=== PATIENT | female | born 1965 | race Caucasian/White ===

== ENCOUNTER 2018-10-31 05:41 | Emergency (ER) | payer SELFPAY ==
--- NOTE | 2018-10-31 06:18 | EDPHYS ---
Physician Documentation [facility] Name: Mary Fischer Age: 53 yrs Sex: Female : 1965 Arrival Date: 10/31/2018 Time: 05:42 Bed 19 Private MD: ED Physician Gómez Zaragoza HPI: 10/31 06:13 This 53 yrs old Female presents to ER via Ambulatory with complaints of Ear kb Pain. 06:13 The patient presents with itching and crusting. The complaints affect the right ear and kb left ear. Onset: The symptoms/episode began/occurred 11 month(s) ago. Modifying factors: The symptoms are alleviated by nothing, the symptoms are aggravated by nothing. Associated signs and symptoms: The patient has no apparent associated signs or symptoms. Severity of symptoms: At their worst the symptoms were mild in the emergency department the symptoms are unchanged. The patient has not experienced similar symptoms in the past. The patient has not recently seen a physician. 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 - Social history:: Smoking status: Patient uses tobacco products, smokes two packs cigarettes per day. - Ebola Screening: : Patient negative for fever greater than or equal to 101.5 degrees Fahrenheit, and additional compatible Ebola Virus Disease symptoms Patient denies exposure to infectious person Patient denies travel to an Ebola-affected area in the 21 days before illness onset. ROS: 06:10 Constitutional: Negative for fever, chills, and weight loss, Cardiovascular: Negative kb for chest pain, palpitations, and edema, Respiratory: Negative for shortness of breath, cough, wheezing, and pleuritic chest pain, Abdomen/GI: Negative for abdominal pain, nausea, vomiting, diarrhea, and constipation, Back: Negative for injury and pain, MS/Extremity: Negative for injury and deformity, Skin: Negative for injury, rash, and discoloration, Neuro: Negative for headache, weakness, numbness, tingling, and seizure. 06:10 ENT: Positive for pain and crust to bilateral ear canal. Exam: 06:10 Constitutional: This is a well developed, well nourished patient who is awake, alert, kb and in no acute distress. Head/Face: Normocephalic, atraumatic. Neck: Trachea midline, no thyromegaly or masses palpated, and no cervical lymphadenopathy. Supple, full range of motion without nuchal rigidity, or vertebral point tenderness. No Meningismus. Chest/axilla: Normal chest wall appearance and motion. Nontender with no deformity. No lesions are appreciated. Cardiovascular: Regular rate and rhythm with a normal S1 and S2. No gallops, murmurs, or rubs. Normal PMI, no JVD. No pulse deficits. Respiratory: Lungs have equal breath sounds bilaterally, clear to auscultation and percussion. No rales, rhonchi or wheezes noted. No increased work of breathing, no retractions or nasal flaring. Abdomen/GI: Soft, non-tender, with normal bowel sounds. No distension or tympany. No guarding or rebound. No evidence of tenderness throughout. Skin: Warm, dry with normal turgor. Normal color with no rashes, no lesions, and no evidence of cellulitis. MS/ Extremity: Pulses equal, no cyanosis. Neurovascular intact. Full, normal range of motion. Neuro: Awake and alert, GCS 15, oriented to person, place, time, and situation. Cranial nerves II-XII grossly intact. Motor strength 5/5 in all extremities. Sensory grossly intact. Cerebellar exam normal. Normal gait. 06:10 ENT: External ear(s): are unremarkable, Ear canal(s): skin irritation to ear canals, TM's: are normal, Nose: is normal, Mouth: is normal, Posterior pharynx: is normal. Vital Signs: 05:45 BP 150 / 84; Pulse 89; Resp 18; Temp 97.8(O); Pulse Ox 94% on R/A; Weight 90.72 kg (R); fc Height 5 ft. 0 in. (152.40 cm) (R); Pain 2/10; 05:45 Body Mass Index 39.06 (90.72 kg, 152.40 cm) fc MDM: 05:59 Patient medically screened. kb 06:12 Data reviewed: vital signs, nurses notes. Data interpreted: Pulse oximetry: on room air kb is 94 %. Interpretation: acceptable. Counseling: I had a detailed discussion with the patient and/or guardian regarding: the historical points, exam findings, and any diagnostic results supporting the discharge/admit diagnosis, the need for outpatient follow up, an ENT specialist, to return to the emergency department if symptoms worsen or persist or if there are any questions or concerns that arise at home. Administered Medications: No medications were administered Disposition: 06:41 Co-signature as Attending Physician, Gómez Zaragoza MD. rn Disposition: 10/31/18 06:18 Discharged to Home. Impression: Otalgia - itching. - Condition is Stable. - Discharge Instructions: Earwax Buildup, Adult, Ear Drainage, [id number]. - Medication Reconciliation Form, Thank You Letter, Antibiotic Education, Prescription Opioid Use form. - Follow up: Emergency Department; When: As needed; Reason: Worsening of condition. Follow up: Private Physician; When: 2 - 3 days; Reason: Recheck today's complaints, Continuance of care, Re-evaluation by your physician. Signatures: Loreta Santiago, LORI MADRIGAL-Edie Salas RN Gómez Helm MD MD rn Cordel, Charlene cc3 Corrections: (The following items were deleted from the chart) 06:29 06:18 10/31/2018 06:18 Discharged to Home. Impression: Otalgia - itching. Condition is cc3 Stable. Forms are Medication Reconciliation Form, Thank You Letter, Antibiotic Education, Prescription Opioid Use. Follow up: Emergency Department; When: As needed; Reason: Worsening of condition. Follow up: Private Physician; When: 2 - 3 days; Reason: Recheck today's complaints, Continuance of care, Re-evaluation by your physician. kb
--- NOTE | 2018-10-31 06:18 | ER ---
Nurse's Notes [facility] Name: Mary Fischer Age: 53 yrs Sex: Female : 1965 Arrival Date: 10/31/2018 Time: 05:42 Bed 19 Private MD: Diagnosis: Otalgia-itching Presentation: 10/31 05:45 Presenting complaint: Patient states: that since last Apr she has been having bilateral fc ear pain and irritation. States that she is having tinoco drainage. Transition of care: patient was not received from another setting of care. Onset of symptoms was April 2018. Risk Assessment: Do you want to hurt yourself or someone else? Patient reports no desire to harm self or others. Initial Sepsis Screen: Does the patient meet any 2 criteria? No. Patient's initial sepsis screen is negative. Does the patient have a suspected source of infection? No. Patient's initial sepsis screen is negative. Care prior to arrival: None. 05:45 Method Of Arrival: Ambulatory 05:45 Acuity: MAMADOU 5 Triage Assessment: 05:30 General: Appears in no apparent distress. comfortable, Behavior is calm, cooperative, cc3 appropriate for age. Pain: Complains of pain in left ear and right ear. EENT: Reports pain in right ear and left ear. 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 - Social history:: Smoking status: Patient uses tobacco products, smokes two packs cigarettes per day. - Ebola Screening: : Patient negative for fever greater than or equal to 101.5 degrees Fahrenheit, and additional compatible Ebola Virus Disease symptoms Patient denies exposure to infectious person Patient denies travel to an Ebola-affected area in the 21 days before illness onset. Screenin:55 Abuse screen: Denies threats or abuse. Nutritional screening: No deficits noted. fc Tuberculosis screening: No symptoms or risk factors identified. Fall Risk None identified. Assessment: 06:27 Reassessment: Patient appears in no apparent distress at this time. Patient and/or cc3 family updated on plan of care and expected duration. Pain level reassessed. Patient is alert, oriented x 3, equal unlabored respirations, skin warm/dry/pink. 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 No IV cannula in situ. Patient left ER vitally stable and ambulatory. Vital Signs: 05:45 BP 150 / 84; Pulse 89; Resp 18; Temp 97.8(O); Pulse Ox 94% on R/A; Weight 90.72 kg (R); fc Height 5 ft. 0 in. (152.40 cm) (R); Pain 2/10; 05:45 Body Mass Index 39.06 (90.72 kg, 152.40 cm) ED Course: 05:42 Patient arrived in ED. ds1 05:45 Arm band placed on Patient placed in an exam room, on a stretcher. fc 05:54 Elena Treadwell is Primary Nurse. cc3 05:54 Triage completed. fc 05:55 Patient has correct armband on for positive identification. Bed in low position. Call fc light in reach. 05:55 No provider procedures requiring assistance completed. fc 05:58 [facility] kb 05:58 Gómez Zaragoza MD is Attending Physician. kb 06:27 Patient did not have IV access during this emergency room visit. cc3 Administered Medications: No medications were administered Outcome: 06:18 Discharge ordered by . kb 06:27 Discharged to home ambulatory. cc3 06:27 Condition: stable 06:27 Discharge instructions given to patient, Instructed on discharge instructions, follow up and referral plans. Demonstrated understanding of instructions, follow-up care. 06:29 Patient left the ED. cc3 Signatures: Loreta Santiago FNP-C FNP-Ckb Chretien, Felicia RN RN Mauricio [facility] ds Elena Treadwell cc3
== END 2018-10-31 06:29 | disposition home or self-care (01) ==
LOC: ER 05:41
DX: H92.03 Otalgia, bilateral (principal); L29.9 Pruritus, unspecified; Z88.1 Allergy status to other antibiotic agents; Z88.0 Allergy status to penicillin; F17.210 Nicotine dependence, cigarettes, uncomplicated
CPT/HCPCS: 99281

== ENCOUNTER 2019-09-18 08:55 | Emergency (ER) | payer SELFPAY ==
--- NOTE | 2019-09-18 10:29 | RAD REPORT ---
EXAM DESCRIPTION: RAD - Chest Pa And Lat (2 Views) - 09/18/2019 10:00 am CLINICAL HISTORY: COUGH Chest pain. COMPARISON: Chest Pa And Lat (2 Views) dated 08/11/2017 FINDINGS: The lungs are mildly emphysematous but clear. The heart is mildly enlarged in size. No dis placed fractures. IMPRESSION: Mild COPD.
--- NOTE | 2019-09-18 10:43 | EDPHYS ---
Physician Documentation [facility] Name: Mary Fischer Age: 54 yrs Sex: Female : 1965 Arrival Date: 09/18/2019 Time: 08:56 Bed 13 Private MD: ED Physician Gómez Zaragoza HPI: 09/18 09:41 This 54 yrs old Female presents to ER via Ambulatory with complaints of Flu rn Symptoms. 09:41 The patient or guardian reports cough. Onset: The symptoms/episode began/occurred 1 rn week(s) ago. Severity of symptoms: At their worst the symptoms were mild, in the emergency department the symptoms are unchanged. Modifying factors: The symptoms are alleviated by nothing, the symptoms are aggravated by nothing. The patient has experienced similar episodes in the past. The patient has not recently seen a physician. Reports "all messed up". Has cough for 1 week, non-productive, better now, no hemoptysis, no fever, + smoker. Doesn't take allergy medication. Also having ear itching, congestion, dry flaky skin of feet. The other problems have been going on for "years". . 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 - Social history:: Smoking status: Patient uses tobacco products, smokes one pack cigarettes per day. - Ebola Screening: : Patient denies exposure to infectious person Patient denies travel to an Ebola-affected area in the 21 days before illness onset. - Family history:: not pertinent. - Hospitalizations: : No recent hospitalization is reported. ROS: 09:41 Constitutional: Negative for fever, chills, and weight loss, Eyes: Negative for injury, rn pain, redness, and discharge, ENT: + itchy ears Neck: Negative for injury, pain, and swelling, Cardiovascular: Negative for chest pain, palpitations, and edema, Respiratory: + cough, neg sob Abdomen/GI: Negative for abdominal pain, nausea, vomiting, diarrhea, and constipation, MS/Extremity: Negative for injury and deformity, Neuro: Negative for headache, weakness, numbness, tingling, and seizure. Exam: 09:41 Constitutional: This is a well developed, well nourished patient who is awake, alert, rn and in no acute distress. Ambulatory to room without difficulty or assistance. Head/Face: Normocephalic, atraumatic. Eyes: + conjunctival erythema with clear drainage bilaterally ENT: + was in ears, no fluid or bulging TM, + nasal congestion, MMM, no stridor Neck: Trachea midline, no thyromegaly or masses palpated, and no cervical lymphadenopathy. Supple, full range of motion without nuchal rigidity, or vertebral point tenderness. No Meningismus. Respiratory: Speaking full sentences. No increased work of breathing, no retractions or nasal flaring. MS/ Extremity: Pulses equal, no cyanosis. Neurovascular intact. Full, normal range of motion. Equal circumference. Neuro: Awake and alert, GCS 15, oriented to person, place, time, and situation. Cranial nerves II-XII grossly intact. Motor strength 5/5 in all extremities. Sensory grossly intact. Cerebellar exam normal. Normal gait. Vital Signs: 09:08 BP 128 / 78; Pulse 89; Resp 16; Temp 97.4(TE); Pulse Ox 95% on R/A; ss MDM: 09:09 Patient medically screened. rn 10:40 Differential Diagnosis: Bronchitis Pneumonia Other Allergies. Data reviewed: vital rn signs, nurses notes, radiologic studies, plain films, and as a result, I will discharge patient. Test interpretation: by ED physician or midlevel provider: plain radiologic studies, CXR neg for acute infiltrate. Counseling: I had a detailed discussion with the patient and/or guardian regarding: the historical points, exam findings, and any diagnostic results supporting the discharge/admit diagnosis, radiology results, the need for outpatient follow up, to return to the emergency department if symptoms worsen or persist or if there are any questions or concerns that arise at home. Special discussion: I discussed with the patient/guardian in detail that at this point there is no indication for admission to the hospital. It is understood, however, that if the symptoms persist or worsen the patient needs to return immediately for re-evaluation. 10:40 ED course: Recommend smoking cessation and allergy medication.. rn 09/18 09:23 Order name: XRAY Chest Pa And Lat (2 Views); Complete Time: 10:40 rn Administered Medications: No medications were administered Disposition: 09/18/19 10:42 Discharged to Home. Impression: Allergic rhinitis, unspecified, Chronic obstructive pulmonary disease, unspecified, Conjunctivitis. - Condition is Stable. - Discharge Instructions: Allergies, Adult, Chronic Obstructive Pulmonary Disease. - Prescriptions for polymyxin B sulf- trimethoprim 10,000 unit- 1 mg/mL Ophthalmic drops - instill 1 drop by OPHTHALMIC route every 6 hours for 10 days one drop in each eye as directed; 1 bottle. - Medication Reconciliation Form, Thank You Letter, Antibiotic Education, Prescription Opioid Use, Work release form, Family Work Release form. - Follow up: Private Physician; When: As needed; Reason: Recheck today's complaints, Re-evaluation by your physician. - Problem is an ongoing problem. - Symptoms have improved. Signatures: Dispatcher [employer] EDMS Gómez Zaragoza MD MD rn Smirch, Shelby, RN RN ss Virginia Priest RN RN tw2 Corrections: (The following items were deleted from the chart) 10:50 10:42 09/18/2019 10:42 Discharged to Home. Impression: Allergic rhinitis, unspecified; tw2 Chronic obstructive pulmonary disease, unspecified; Conjunctivitis. Condition is Stable. Forms are Work release form, Family Work Release, Medication Reconciliation Form, Thank You Letter, Antibiotic Education, Prescription Opioid Use. Follow up: Private Physician; When: As needed; Reason: Recheck today's complaints, Re-evaluation by your physician. Problem is an ongoing problem. Symptoms have improved. rn
--- NOTE | 2019-09-18 10:43 | ER ---
Nurse's Notes [facility] Name: Mary Fischer Age: 54 yrs Sex: Female : 1965 Arrival Date: 09/18/2019 Time: 08:56 Bed 13 Private MD: Diagnosis: Allergic rhinitis, unspecified;Chronic obstructive pulmonary disease, unspecified;Conjunctivitis Presentation: 09/18 09:06 Presenting complaint: Patient states: "I've got crusty ears. I've got stuff in my nose ss and I've got crust in my eyes. I've got scales on my feet and I'm congested.". Transition of care: patient was not received from another setting of care. Onset of symptoms was September 11, 2019. Risk Assessment: Do you want to hurt yourself or someone else? Patient reports no desire to harm self or others. Initial Sepsis Screen: Does the patient meet any 2 criteria? No. Patient's initial sepsis screen is negative. Does the patient have a suspected source of infection? No. Patient's initial sepsis screen is negative. Care prior to arrival: None. 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 - Social history:: Smoking status: Patient uses tobacco products, smokes one pack cigarettes per day. - Ebola Screening: : Patient denies exposure to infectious person Patient denies travel to an Ebola-affected area in the 21 days before illness onset. - Family history:: not pertinent. - Hospitalizations: : No recent hospitalization is reported. Screenin:53 Abuse screen: Denies threats or abuse. Nutritional screening: No deficits noted. tw2 Tuberculosis screening: No symptoms or risk factors identified. Fall Risk None identified. Assessment: 09:30 General: Appears in no apparent distress. Behavior is calm, cooperative, appropriate tw2 for age. Pain: Complains of pain in body aches. Neuro: Level of Consciousness is awake, alert, obeys commands, Oriented to person, place, time, situation. Cardiovascular: Patient's skin is warm and dry. Respiratory: Reports cough that is Airway is patent Respiratory effort is even, unlabored, Respiratory pattern is regular, symmetrical. GI: No signs and/or symptoms were reported involving the gastrointestinal system. : No signs and/or symptoms were reported regarding the genitourinary system. EENT: Reports nasal congestion nasal discharge. Musculoskeletal: Range of motion: intact in all extremities. 10:49 Reassessment: Patient appears in no apparent distress at this time. No changes from tw2 previously documented assessment. Patient and/or family updated on plan of care and expected duration. Pain level reassessed. Patient is alert, oriented x 3, equal unlabored respirations, skin warm/dry/pink. Vital Signs: 09:08 BP 128 / 78; Pulse 89; Resp 16; Temp 97.4(TE); Pulse Ox 95% on R/A; ED Course: 08:56 Patient arrived in ED. as 09:07 Triage completed. ss 09:08 Arm band placed on right wrist. ss 09:09 Gómez Zaragoza MD is Attending Physician. rn 09:09 Bed in low position. Call light in reach. Adult w/ patient. tw2 09:52 Virginia Priest, SISSY is Primary Nurse. tw2 09:59 XRAY Chest Pa And Lat (2 Views) In Process Unspecified. EDMS 10:49 No provider procedures requiring assistance completed. Patient did not have IV access tw2 during this emergency room visit. Administered Medications: No medications were administered Outcome: 10:42 Discharge ordered by . rn 10:49 Discharged to home ambulatory, with significant other. tw2 10:49 Condition: stable 10:49 Discharge instructions given to patient, significant other, Instructed on discharge instructions, follow up and referral plans. medication usage, Demonstrated understanding of instructions, follow-up care, medications, Prescriptions given X 1. 10:50 Patient left the ED. tw2 Signatures: Dispatcher [employer] LUISMS Tamiko Edward Roman, MD MD rn Smirch, Shelby, RN RN Virginia Priest RN RN tw2
[2019-09-18 11:03] VITALS: BP 128/78; TEMP 97.4; O2SAT 95
== END 2019-09-18 10:50 | disposition home or self-care (01) ==
LOC: ER 08:55
DX: J44.9 Chronic obstructive pulmonary disease, unspecified (principal); J30.9 Allergic rhinitis, unspecified; F17.210 Nicotine dependence, cigarettes, uncomplicated; Z88.0 Allergy status to penicillin; Z88.3 Allergy status to other anti-infective agents
CPT/HCPCS: 71046; 99283

== ENCOUNTER 2020-07-18 13:52 | Emergency (ER) | payer SELFPAY ==
[2020-07-18] MEDS ORDERED: FLUCONAZOLE 100 MG TAB ONE (20:05)
--- NOTE | 2020-07-18 20:41 | EDPHYS ---
Physician Documentation [facility] Name: Mary Fischer Age: 55 yrs Sex: Female : 1965 Arrival Date: 07/18/2020 Time: 13:55 Bed 17 Private MD: ED Physician Paco Blanca HPI: 07/18 19:29 This 55 yrs old Female presents to ER via Ambulatory with complaints of Women jmm probelms. 19:29 The patient presents with urinary symptoms. Onset: The symptoms/episode began/occurred jmm gradually, 3 week(s) ago. Modifying factors: The symptoms are alleviated by nothing, the symptoms are aggravated by urinating. Associated signs and symptoms: Pertinent negatives: fever. This is a 55 year old female with no chronic medical conditions that presents to the ED with complaints of vaginal irritation beginning approx 3 week ago. Symptoms have been ongoing and unrelieved at home. Denies fever. Denies discharge. Does have painful urination. . Historical: - Allergies: 14:11 Clarithromycin; aa5 14:11 PENICILLINS; aa5 - Home Meds: 14:11 None [Active]; aa5 - PMHx: 14:11 None; aa5 - PSHx: 14:11 Hysterectomy; aa5 - Immunization history:: Adult Immunizations unknown. - Social history:: Smoking status: Patient reports the use of cigarette tobacco products, smokes one pack cigarettes per day. ROS: 19:29 Constitutional: Negative for fever, chills, and weight loss, Eyes: Negative for injury, jmm pain, redness, and discharge, ENT: Negative for injury, pain, and discharge, Neck: Negative for injury, pain, and swelling, Cardiovascular: Negative for chest pain, palpitations, and edema, Respiratory: Negative for shortness of breath, cough, wheezing, and pleuritic chest pain, Abdomen/GI: Negative for abdominal pain, nausea, vomiting, diarrhea, and constipation, Back: Negative for injury and pain, Skin: Negative for injury, rash, and discoloration, Neuro: Negative for headache, weakness, numbness, tingling, and seizure, Psych: Negative for depression, anxiety, suicide ideation, homicidal ideation, and hallucinations. 19:29 : Positive for urinary symptoms, pelvic pain. 19:29 All other systems are negative. Exam: 19:29 Constitutional: This is a well developed, well nourished patient who is awake, alert, jmm and in no acute distress. Head/Face: atraumatic. Eyes: EOMI, no conjunctival erythema appreciated ENT: Moist Mucus Membranes Neck: Trachea midline, Supple Chest/axilla: Normal chest wall appearance and motion. Cardiovascular: Regular rate and rhythm. No edema appreciated Respiratory: Normal respirations, no respiratory distress appreciated Abdomen/GI: Non distended, soft Back: Normal ROM Skin: General appearance color normal MS/ Extremity: Moves all extremities, no obvious deformities appreciated, no edema noted to the lower extremities Neuro: Awake and alert, normal gait Psych: Behavior is normal, Mood is normal, Patient is cooperative and pleasant 19:29 : no abscess or induration appreciated, labia minora erythematous, no discharge appreciated. . 19:29 Skin: Appearance: Color: normal in color. 19:29 Neuro: Orientation: is normal, Mentation: is normal, Memory: is normal. 19:29 Psych: Behavior/mood is pleasant, cooperative. Vital Signs: 14:10 BP 127 / 75; Pulse 94; Resp 20 S; Temp 98.8(O); Pulse Ox 97% on R/A; Weight 90.72 kg aa5 (R); Height 4 ft. 10 in. (147.32 cm) (R); 21:00 BP 116 / 72; Pulse 72; Resp 16 S; Temp 97.6(O); Pulse Ox 96% on R/A; bb 14:10 Body Mass Index 41.80 (90.72 kg, 147.32 cm) aa5 MDM: 19:29 Patient medically screened. sudha 20:38 Data reviewed: vital signs, nurses notes. Counseling: I had a detailed discussion with sudha the patient and/or guardian regarding: the historical points, exam findings, and any diagnostic results supporting the discharge/admit diagnosis, lab results, the need for outpatient follow up, to return to the emergency department if symptoms worsen or persist or if there are any questions or concerns that arise at home. ED course: BGL elevated. I discussed with the patient the need for further evaluation by pcp and given information for follow up. Patient otherwise given strict return precautions. Patient understood and agrees with the plan of care. . 07/18 19:30 Order name: Urine Microscopic Only sudha 07/18 19:30 Order name: Urine Culture [facility] 07/18 19:30 Order name: Urine Dipstick-Ancillary (obtain specimen); Complete Time: 20:08 [facility] 07/18 20:08 Order name: Urine Dipstick--Ancillary (enter results) ca 07/18 20:42 Order name: Glucose, Ancillary Testing [facility] 07/18 20:24 Order name: Fingerstick Glucose; Complete Time: 20:39 [facility] Administered Medications: 20:03 Drug: DiFLUcan 150 mg Route: PO; ll1 20:39 Follow up: Response: No adverse reaction; RASS: Alert and Calm (0) ll1 Disposition: 07/19 05:31 Co-signature as Attending Physician, Paco Blnaca MD I agree with the assessment and [facility] plan of care. Disposition: 07/18/20 20:40 Discharged to Home. Impression: Hyperglycemia, unspecified, Urinary tract infection, site not specified, Dysuria. - Condition is Stable. - Discharge Instructions: Dysuria, Hyperglycemia, Urinary Tract Infection, Adult. - Prescriptions for Bactrim DS 800- 160 mg Oral Tablet - take 1 tablet by ORAL route every 12 hours for 7 days; 14 tablet. - Medication Reconciliation Form, Thank You Letter, Antibiotic Education, Prescription Opioid Use, Work release form form. - Follow up: Private Physician; When: 2 - 3 days; Reason: Recheck today's complaints, Continuance of care, Re-evaluation by your physician. Signatures: Dispatcher [employer] [facility] Paco Blanca MD MD cha Mickail, Joel, PA PA [facility] Kizzy Villa RN RN bb Calderon, Audri RN RN Cornelius Byrd RN RN ll1 Corrections: (The following items were deleted from the chart) 07/18 21:11 20:40 07/18/2020 20:40 Discharged to Home. Impression: Hyperglycemia, unspecified; bb Urinary tract infection, site not specified; Dysuria. Condition is Stable. Forms are Medication Reconciliation Form, Thank You Letter, Antibiotic Education, Prescription Opioid Use. Follow up: Private Physician; When: 2 - 3 days; Reason: Recheck today's complaints, Continuance of care, Re-evaluation by your physician. [facility]
--- NOTE | 2020-07-18 20:41 | ER ---
Nurse's Notes [facility] Name: Mary Fischer Age: 55 yrs Sex: Female : 1965 Arrival Date: 07/18/2020 Time: 13:55 Bed 17 Private MD: Diagnosis: Hyperglycemia, unspecified;Urinary tract infection, site not specified;Dysuria Presentation: 07/18 14:10 Chief complaint: Patient states: "I think I have a yeast infection and it won't go aa5 away". Coronavirus screen: Client denies travel out of the [place] in the last 14 days. At this time, the client does not indicate any symptoms associated with coronavirus-19. Ebola Screen: Patient negative for fever greater than or equal to 101.5 degrees Fahrenheit, and additional compatible Ebola Virus Disease symptoms. Initial Sepsis Screen: Does the patient meet any 2 criteria? No. Patient's initial sepsis screen is negative. Does the patient have a suspected source of infection? No. Patient's initial sepsis screen is negative. Risk Assessment: Do you want to hurt yourself or someone else? Patient reports no desire to harm self or others. Onset of symptoms was July 2020. 14:10 Method Of Arrival: Ambulatory aa5 14:10 Acuity: MAMADOU 4 aa5 Historical: - Allergies: 14:11 Clarithromycin; aa5 14:11 PENICILLINS; aa5 - Home Meds: 14:11 None [Active]; aa5 - PMHx: 14:11 None; aa5 - PSHx: 14:11 Hysterectomy; aa5 - Immunization history:: Adult Immunizations unknown. - Social history:: Smoking status: Patient reports the use of cigarette tobacco products, smokes one pack cigarettes per day. Screenin:42 Abuse screen: Denies threats or abuse. Nutritional screening: No deficits noted. ll1 Tuberculosis screening: No symptoms or risk factors identified. Fall Risk None identified. Total Pena Fall Scale indicates No Risk (0-24 pts). Assessment: 19:20 General: Appears in no apparent distress. Behavior is calm, cooperative, appropriate ll1 for age. Pain: Denies pain. : on labia irritation reported. No redness, drainage noted. Reports vaginal itching, vaginal irritation. Derm: Skin is intact, is healthy with good turgor, Skin is pink, warm \\T\\ dry. Skin temperature is warm Reports itching. 20:20 Reassessment: Patient and/or family updated on plan of care and expected duration. Pain ll1 level reassessed. Patient is alert, oriented x 3, equal unlabored respirations, skin warm/dry/pink. 21:10 Reassessment: Patient is alert, oriented x 3, equal unlabored respirations, skin bb warm/dry/pink. pt verbalized understanding of and agrees to plan of care discharge instructions given pt ambulated with steady gait to exit. Vital Signs: 14:10 BP 127 / 75; Pulse 94; Resp 20 S; Temp 98.8(O); Pulse Ox 97% on R/A; Weight 90.72 kg aa5 (R); Height 4 ft. 10 in. (147.32 cm) (R); 21:00 BP 116 / 72; Pulse 72; Resp 16 S; Temp 97.6(O); Pulse Ox 96% on R/A; bb 14:10 Body Mass Index 41.80 (90.72 kg, 147.32 cm) aa5 ED Course: 13:55 Patient arrived in ED. mr 14:10 Arm band placed on. aa5 14:11 Triage completed. aa5 18:23 Brandon Contreras PA is PHCP. [facility] 18:23 Paco Blanca MD is Attending Physician. sudha 19:19 Cornelius June, RN is Primary Nurse. ll1 20:43 Patient has correct armband on for positive identification. Bed in low position. Call ll1 light in reach. Side rails up X 1. Pulse ox on. NIBP on. 21:11 No provider procedures requiring assistance completed. Patient did not have IV access bb during this emergency room visit. Administered Medications: 20:03 Drug: DiFLUcan 150 mg Route: PO; ll1 20:39 Follow up: Response: No adverse reaction; RASS: Alert and Calm (0) ll1 Outcome: 20:40 Discharge ordered by . sudha 21:11 Discharged to home ambulatory. bb 21:11 Condition: stable 21:11 Discharge instructions given to patient, Instructed on discharge instructions, follow up and referral plans. medication usage, Demonstrated understanding of instructions, follow-up care, medications, Prescriptions given X 1. 21:11 Patient left the ED. bb Addendum: 07/23/2020 09:38 Addendum: Culture Results: Positive urine culture. Bacteria is resistant to, has s s intermediate sensitivity, or is not tested against prescribed antibiotics. Report given to ADELINA for further evaluation and then to epic ambulatory analysts for follow up with patient. Phone call Attempt #1 recommendation by NAS Taylor to prescribe Cipro 500 mg 1 tab PO BID x 7 days if patient has symptoms of UTI. attempted to call patient. "not a working number" Certified letter sent to listed address for patient. Signatures: Brandon Contreras PA PA jmm Rivera, Mary mr VillaKizzy, RN RN bb Cindy Peralta, RN RN aa5 Sandra Mccray RN RN ss Cornelius June RN RN ll1 Corrections: (The following items were deleted from the chart) 09:45 09:38 Addendum: Culture Results: Positive urine culture. Patient was not prescribed ss antibiotics at discharge. Report given to ADELINA for further evaluation and then to epic ambulatory analysts for follow up with patient. Phone call Attempt #1 recommendation by NAS Taylor to prescribe Cipro 500 mg 1 tab PO BID x 7 days if patient has symptoms of UTI. attempted to call patient. "not a working number" Certified letter sent to listed address for patient. ss
[2020-07-18 20:51] LABS: Urine Blood NEGATIVE (NEG); Urine Glucose 2+ (NEG); Urine Protein NEGATIVE (NEG); Urine Specific Gravity >1.030 (1.005-1.030)
[2020-07-18 21:39] VITALS: BP 127/75; TEMP 98.8; O2SAT 97
[2020-07-18 21:39] LABS: Urine Bacteria 20-50 /HPF (<20); Urine Culture Reflex Order NOT NEEDED; Urine RBC <5 /HPF (NONE SEEN)
== END 2020-07-18 21:11 | disposition home or self-care (01) ==
LOC: ER 13:52
DX: N39.0 Urinary tract infection, site not specified (principal); R73.9 Hyperglycemia, unspecified; F17.210 Nicotine dependence, cigarettes, uncomplicated; Z88.0 Allergy status to penicillin; Z88.3 Allergy status to other anti-infective agents
CPT/HCPCS: 81003; 81015; 82947; 87077; 87086; 87088; 87186; 99283

== ENCOUNTER 2020-09-17 11:14 | Emergency (ER) | payer SELFPAY ==
[2020-09-17 12:21] LABS: Urine Blood NEGATIVE (NEG); Urine Glucose 2+ (NEG); Urine Protein 1+ (NEG); Urine Specific Gravity >1.030 (1.005-1.030)
[2020-09-17 12:21] LABS: Urine Bacteria <20 /HPF (<20); Urine Mucus LIGHT /HPF (NONE SEEN); Urine RBC <5 /HPF (NONE SEEN)
--- NOTE | 2020-09-17 12:32 | ER ---
Nurse's Notes [facility] Name: Mary Fischer Age: 55 yrs Sex: Female : 1965 Arrival Date: 09/17/2020 Time: 11:16 Bed Waiting Private MD: Diagnosis: Candidiasis of vulva and vagina Presentation: 09/17 11:37 Chief complaint: Patient states: "I have a yeast infection". Coronavirus screen: Client ss denies travel out of the [place] in the last 14 days. Ebola Screen: Patient denies exposure to infectious person. Patient denies travel to an Ebola-affected area in the 21 days before illness onset. Initial Sepsis Screen: Does the patient meet any 2 criteria? No. Patient's initial sepsis screen is negative. Does the patient have a suspected source of infection? No. Patient's initial sepsis screen is negative. Risk Assessment: Do you want to hurt yourself or someone else? Patient reports no desire to harm self or others. Onset of symptoms was September 11, 2020. 11:37 Method Of Arrival: Ambulatory ss 11:37 Acuity: MAMADOU 4 ss Historical: - Allergies: 11:39 Clarithromycin; ss 11:39 PENICILLINS; ss - PSHx: 11:39 Hysterectomy; ss - Immunization history:: Adult Immunizations up to date. - Social history:: Smoking status: Patient reports the use of cigarette tobacco products, smokes two packs cigarettes per day. Screenin:37 Abuse screen: Denies threats or abuse. Denies injuries from another. Nutritional ss screening: No deficits noted. Tuberculosis screening: Never had TB. Fall Risk None identified. Assessment: 11:37 General: Appears in no apparent distress. comfortable, Behavior is calm, cooperative. ss Pain: Complains of pain in vulva/ vagina Pain currently is 9 out of 10 on a pain scale. Quality of pain is described as itching Is continuous. Neuro: Level of Consciousness is awake, alert, obeys commands, Oriented to person, place, time, situation. Cardiovascular: Capillary refill < 3 seconds is brisk in bilateral. Respiratory: Airway is patent Respiratory effort is even, unlabored, Respiratory pattern is regular, symmetrical. GI: No signs and/or symptoms were reported involving the gastrointestinal system. : Reports vaginal itching. EENT: Nares are clear. Derm: Skin is pink, warm \\T\\ dry. normal. Vital Signs: 11:39 BP 132 / 77; Pulse 92; Resp 17; Temp 98.1(TE); Pulse Ox 98% on R/A; Height 4 ft. 9 in. ss (144.78 cm); Pain 9/10; ED Course: 11:16 Patient arrived in ED. ds1 11:19 Loreta Santiago FNP-C is [facility]. kb 11:19 Andres Clarke MD is Attending Physician. kb 11:37 Patient has correct armband on for positive identification. ss 11:38 Triage completed. ss 11:39 Arm band placed on right wrist. ss 13:20 No provider procedures requiring assistance completed. Patient did not have IV access ss during this emergency room visit. Administered Medications: 13:19 Drug: DiFLUcan 150 mg Route: PO; ss 13:20 Follow up: Response: Medication administered at discharge. ss Outcome: 12:31 Discharge ordered by . kb 13:20 Discharged to home ambulatory. ss 13:20 Condition: good 13:20 Discharge instructions given to patient, Instructed on discharge instructions, follow up and referral plans. Demonstrated understanding of instructions, follow-up care. 13:22 Patient left the ED. ss Signatures: Loreta Santiago FNP-C FNP-Ckb Sanford, Demi ds1 Sandra Mccray RN RN ss
--- NOTE | 2020-09-17 12:32 | EDPHYS ---
Physician Documentation [facility] Name: Mary Fischer Age: 55 yrs Sex: Female : 1965 Arrival Date: 09/17/2020 Time: 11:16 Bed Waiting Private MD: ED Physician Andres Clarke HPI: 09/17 12:25 This 55 yrs old Female presents to ER via Ambulatory with complaints of kb Vaginal Discharge - Irritation. 12:25 The patient presents with perineal itching. Onset: The symptoms/episode began/occurred kb 1 week(s) ago. Modifying factors: The symptoms are alleviated by nothing, the symptoms are aggravated by nothing. Associated signs and symptoms: The patient has no apparent associated signs or symptoms. Severity of symptoms: At their worst the symptoms were moderate, in the emergency department the symptoms are unchanged. The patient has experienced similar episodes in the past. The patient has not recently seen a physician. Historical: - Allergies: 11:39 Clarithromycin; ss 11:39 PENICILLINS; ss - PSHx: 11:39 Hysterectomy; ss - Immunization history:: Adult Immunizations up to date. - Social history:: Smoking status: Patient reports the use of cigarette tobacco products, smokes two packs cigarettes per day. ROS: 12:23 Constitutional: Negative for fever, chills, and weight loss, Cardiovascular: Negative kb for chest pain, palpitations, and edema, Respiratory: Negative for shortness of breath, cough, wheezing, and pleuritic chest pain, Abdomen/GI: Negative for abdominal pain, nausea, vomiting, diarrhea, and constipation, Back: Negative for injury and pain, MS/Extremity: Negative for injury and deformity, Skin: Negative for injury, rash, and discoloration, Neuro: Negative for headache, weakness, numbness, tingling, and seizure. 12:23 : Positive for vaginal itching. Exam: 12:23 Constitutional: This is a well developed, well nourished patient who is awake, alert, kb and in no acute distress. Head/Face: Normocephalic, atraumatic. Chest/axilla: Normal chest wall appearance and motion. Nontender with no deformity. No lesions are appreciated. Cardiovascular: Regular rate and rhythm with a normal S1 and S2. No gallops, murmurs, or rubs. Normal PMI, no JVD. No pulse deficits. Respiratory: Lungs have equal breath sounds bilaterally, clear to auscultation and percussion. No rales, rhonchi or wheezes noted. No increased work of breathing, no retractions or nasal flaring. Abdomen/GI: Soft, non-tender, with normal bowel sounds. No distension or tympany. No guarding or rebound. No evidence of tenderness throughout. Skin: Warm, dry with normal turgor. Normal color with no rashes, no lesions, and no evidence of cellulitis. MS/ Extremity: Pulses equal, no cyanosis. Neurovascular intact. Full, normal range of motion. Neuro: Awake and alert, GCS 15, oriented to person, place, time, and situation. Cranial nerves II-XII grossly intact. Motor strength 5/5 in all extremities. Sensory grossly intact. Cerebellar exam normal. Normal gait. Vital Signs: 11:39 BP 132 / 77; Pulse 92; Resp 17; Temp 98.1(TE); Pulse Ox 98% on R/A; Height 4 ft. 9 in. ss (144.78 cm); Pain 9/10; MDM: 11:41 Patient medically screened. kb 12:22 Data reviewed: vital signs, nurses notes. Data interpreted: Pulse oximetry: on room air kb is 98 %. Interpretation: normal. 12:26 Counseling: I had a detailed discussion with the patient and/or guardian regarding: the kb historical points, exam findings, and any diagnostic results supporting the discharge/admit diagnosis, lab results, the need for outpatient follow up, an OB/Gyne specialist, to return to the emergency department if symptoms worsen or persist or if there are any questions or concerns that arise at home. 09/17 12:01 Order name: Urine Microscopic Only; Complete Time: 12:22 kb 09/17 12:02 Order name: Urine Dipstick--Ancillary (enter results); Complete Time: 12:21 kb 09/17 12:01 Order name: Urine Dipstick-Ancillary (obtain specimen); Complete Time: 13:15 kb Administered Medications: 13:19 Drug: DiFLUcan 150 mg Route: PO; ss 13:20 Follow up: Response: Medication administered at discharge. Disposition: 09/18 07:28 Co-signature as Attending Physician, Andres Clarke MD I agree with the assessment and kdr plan of care. Disposition: 09/17/20 12:31 Discharged to Home. Impression: Candidiasis of vulva and vagina. - Condition is Stable. - Discharge Instructions: Vaginal Yeast Infection, Adult. - Medication Reconciliation Form, Thank You Letter, Antibiotic Education, Prescription Opioid Use form. - Follow up: Emergency Department; When: As needed; Reason: Worsening of condition. Follow up: Private Physician; When: 2 - 3 days; Reason: Recheck today's complaints, Continuance of care, Re-evaluation by your physician. Signatures: Dispatcher [employer] EDMS Loreta Santiago, GEODETIC ENGINEER-C GEODETIC ENGINEER-Ckb Andres Clarke MD MD kdr Sandra Mccray RN RN ss Corrections: (The following items were deleted from the chart) 09/17 13:22 12:31 09/17/2020 12:31 Discharged to Home. Impression: Candidiasis of vulva and vagina. ss Condition is Stable. Forms are Medication Reconciliation Form, Thank You Letter, Antibiotic Education, Prescription Opioid Use. Follow up: Emergency Department; When: As needed; Reason: Worsening of condition. Follow up: Private Physician; When: 2 - 3 days; Reason: Recheck today's complaints, Continuance of care, Re-evaluation by your physician. kb
[2020-09-17 13:26] VITALS: BP 132/77; TEMP 98.1; O2SAT 98
[2020-09-17] MEDS ORDERED: FLUCONAZOLE 100 MG TAB ONE (13:33)
== END 2020-09-17 13:22 | disposition home or self-care (01) ==
LOC: ER 11:14
DX: B37.3 Candidiasis of vulva and vagina (principal); F17.210 Nicotine dependence, cigarettes, uncomplicated
CPT/HCPCS: 81003; 81015; 99283

== ENCOUNTER 2021-01-01 10:37 | Emergency (ER) | payer SELFPAY ==
[2021-01-01 11:41] LABS: Absolute Lymphocytes (CBC) 3.2 K/uL (0.7-4.9); Basophils % 1.2 % (0-1.3); Lymphocytes % 34.8 % (15.3-44.8); MPV 8.8 fL (7.6-11.3); RBC Red Blood Cell Count 5.17 M/uL (3.86-4.86)
[2021-01-01 11:54] LABS: Potassium 4.6 mmol/L (3.5-5.1)
--- NOTE | 2021-01-01 11:55 | RAD REPORT ---
EXAM DESCRIPTION: CT - [id number] - 01/01/2021 11:38 am CLINICAL HISTORY: fallfacial trauma, head and neck injury, headache, neck pain COMPARISON: No comparisons TECHNIQUE: Axial 5 mm thick images of the head were obtained. Axial 2 mm thick images of the cervic al spine were obtained with sagittal and coronal reconstruction images generated and reviewed. All CT scans are performed using dose optimization technique as appropriate and may include automated exposure control or mA/KV adjustment according to patient size. FINDINGS: No intracranial hemorrhage, mass, edema or acute intracranial finding. No suspicion for ac slim infarction. A 15 millimeter rounded low-density area in the superior right cerebellum does not ap pear to be acute. This could be an old ischemic injury or possibly a benign posterior fossa cyst. Thi s is not a felt to be related to the acute presentation. Mastoid air cells are clear. Facial bones, o rbits and sinuses are separately detailed. No skull fracture. Cervical body height and alignment are normal. No disk space narrowing. No fracture or acute bony abn ormality. Central canal detail is inherently limited. No paraspinal mass or hematoma. IMPRESSION: No hemorrhage or other acute intracranial finding identifiable. No fracture or acute cervical spine finding identifiable. Orbits, facial bones and sinuses are separately detailed.
--- NOTE | 2021-01-01 12:00 | RAD REPORT ---
EXAM DESCRIPTION: CT - Facial Bones W/ Mpr - 01/01/2021 11:38 am CLINICAL HISTORY: Fall, facial trauma COMPARISON: None. TECHNIQUE: Axial 2 millimeter thick images of the facial bones were obtained with sagittal and coron al reconstruction imaging. All CT scans are performed using dose optimization technique as appropriate and may include automated exposure control or mA/KV adjustment according to patient size. FINDINGS: No skullbase fracture identified. Mastoid air cells are clear. No fracture of the mandible is identified. Mandible condyle positioning is symmetric and within normal range. Nondisplaced nasal bone fractures are present. There is right deviation of the mid nasal septum and l eft deviation of the posterior nasal septum. A fracture line through the nasal septum is not identifi ed. No sinus wall fracture seen. There is significant mucosal thickening in the maxillary sinuses wit h air-fluid levels. Frontal sinuses are clear. Ethmoid air cell patchy mucosal thickening present. r-fluid levels are present in the maxillary sinuses. Sphenoid sinus is clear. There is nasal passage opacification seen commonly associated with hemorrhagic products. No tonsil or adenoid mass effect se en. No globe or orbital content abnormality. IMPRESSION: Nondisplaced nasal bone fractures are present in the anterior midline. There is nasal se ptum deviation but no definitive nasal septum fracture. Soft tissue opacification throughout the nasal passages extending into the oropharynx typical for hem orrhagic material. Soft tissue mass is unlikely. Air-fluid levels in each maxillary sinus. Mucosal thickening changes are present. Sinus wall fracture is not identified.
--- NOTE | 2021-01-01 13:19 | RAD REPORT ---
EXAM DESCRIPTION: RAD - Hand Right 3 View - 01/01/2021 11:59 am CLINICAL HISTORY: Right hand pain status post injury FINDINGS: No fracture or dislocation is seen.
--- NOTE | 2021-01-01 13:49 | ER ---
Nurse's Notes [facility] Name: Mary Fischer Age: 55 yrs Sex: Female : 1965 Arrival Date: 01/01/2021 Time: 11:12 Bed 16 Private MD: Diagnosis: Fracture of nasal bones Presentation: 01/01 11:12 Chief complaint: EMS states: pt arrived via EMS s/p mechanical fall. pt denies LOC. tr6 laceration noted to pts nose. pt denies med hx or meds at home. Coronavirus screen: Client denies travel out of the [place] in the last 14 days. Ebola Screen: Patient negative for fever greater than or equal to 101.5 degrees Fahrenheit, and additional compatible Ebola Virus Disease symptoms Patient denies exposure to infectious person. Patient denies travel to an Ebola-affected area in the 21 days before illness onset. Initial Sepsis Screen: Does the patient meet any 2 criteria? No. Patient's initial sepsis screen is negative. Does the patient have a suspected source of infection? No. Patient's initial sepsis screen is negative. Risk Assessment: Do you want to hurt yourself or someone else? Patient reports no desire to harm self or others. Onset of symptoms was January 01, 2021. 11:12 Method Of Arrival: EMS: [facility] tr6 11:21 Acuity: MAMADOU 3 tr6 Triage Assessment: 11:21 General: Appears in no apparent distress. Behavior is calm, cooperative, appropriate tr6 for age. Historical: - Allergies: 11:19 Clarithromycin; tr6 11:19 PENICILLINS; tr6 - Home Meds: 11:19 None [Active]; tr6 - PSHx: 11:19 Hysterectomy; tr6 - Immunization history:: Adult Immunizations. - Social history:: Smoking status: . Screenin:20 Abuse screen: Denies threats or abuse. Nutritional screening: No deficits noted. tr6 Tuberculosis screening: No symptoms or risk factors identified. Fall Risk Fall in past 12 months (25 points). Assessment: 11:17 Reassessment: see triage assessment. tr6 11:17 Pain: Complains of pain in pt reports she has pain in right wrist and nose. Neuro: No tr6 deficits noted. Cardiovascular: No deficits noted. Respiratory: No deficits noted. GI: No deficits noted. : No deficits noted. EENT: laceration to nose. s/p mechanical fall. Derm: Wound noted nose. Musculoskeletal: No deficits noted. Injury Description: Abrasion sustained to nose. 11:31 Reassessment: pt transferred to xray via wheelchair. tr6 12:34 Reassessment: Patient appears in no apparent distress at this time. Patient and/or tr6 family updated on plan of care and expected duration. Pain level reassessed. Patient is alert, oriented x 3, equal unlabored respirations, skin warm/dry/pink. 13:51 Reassessment: Brandon at bedside to review results with pt. tr6 14:13 Reassessment: discharge instructions and ED med given by other RN. tr6 Vital Signs: 11:20 BP 175 / 103; Pulse 91; Resp 18; Temp 97.8; Pulse Ox 95% ; tr6 13:08 BP 133 / 95; Pulse 92; Resp 18; Pulse Ox 95% ; tr6 ED Course: 11:12 Patient arrived in ED. tr6 11:13 Brandon Contreras PA is PHCP. jmm 11:13 Silvano Catherine MD is Attending Physician. jmm 11:21 Triage completed. tr6 11:21 Arm band placed on right wrist. Patient placed in an exam room. tr6 11:21 No provider procedures requiring assistance completed. tr6 11:22 Patient has correct armband on for positive identification. Fall risk band placed. Bed tr6 in low position. Call light in reach. Side rails up X 1. 11:25 Inserted saline lock: 20 gauge in right antecubital area, using aseptic technique. tr6 ,using aseptic technique. by Celi SHEEHAN Blood collected. 11:30 BMP Sent. tr6 11:30 CBC with Diff Sent. tr6 11:38 CT Head C Spine In Process Unspecified. EDMS 11:38 CT Facial Bones W/O Con In Process Unspecified. EDMS 11:59 Hand Right 3 View XRAY In Process Unspecified. EDMS 13:48 Heydi Clayton MD is Referral Physician. jmm 13:52 IV discontinued, intact, bleeding controlled, No redness/swelling at site. tr6 Administered Medications: 14:01 Drug: Tetanus-Diphtheria Toxoid Adult 0.5 ml {Pyrotechnician: [employer]. Exp: ld1 12/22/2021. Lot #: [id number]. } Route: IM; Site: right deltoid; 14:13 Follow up: Response: No adverse reaction tr6 Outcome: 13:48 Discharge ordered by . sudha 13:52 Discharged to home ambulatory. tr6 13:52 Condition: good 13:52 Discharge instructions given to patient. 14:14 Patient left the ED. tr6 Signatures: Dispatcher [employer] EDMS Brandon Contreras PA PA jmm Dibbern, Lauren, SISSY RN ld1 Do Downs RN RN tr6
--- NOTE | 2021-01-01 13:49 | EDPHYS ---
Physician Documentation [facility] Name: Mary Fischer Age: 55 yrs Sex: Female : 1965 Arrival Date: 01/01/2021 Time: 11:12 Bed 16 Private MD: ED Physician Silvano Catherine HPI: 01/01 11:06 This 55 yrs old Female presents to ER via EMS with complaints of Fall Injury. jmm 11:06 Details of fall: The patient fell from an upright position, while walking. Onset: The m symptoms/episode began/occurred acutely, just prior to arrival. Associated injuries: The patient sustained injury to the head. The patient has not experienced similar symptoms in the past. Patient states she tripped. Also complains of right hand pain and right knee injury. . Historical: - Allergies: 11:19 Clarithromycin; tr6 11:19 PENICILLINS; tr6 - Home Meds: 11:19 None [Active]; tr6 - PSHx: 11:19 Hysterectomy; tr6 - Immunization history:: Adult Immunizations. - Social history:: Smoking status: . ROS: 11:06 Constitutional: Negative for fever, chills, and weight loss, Cardiovascular: Negative jmm for chest pain, palpitations, and edema, Respiratory: Negative for shortness of breath, cough, wheezing, and pleuritic chest pain. 11:06 ENT: Positive for nose bleed. 11:06 MS/extremity: Positive for injury or acute deformity. 11:06 All other systems are negative. Exam: 11:06 Constitutional: This is a well developed, well nourished patient who is awake, alert, jmm and in no acute distress. Head/Face: atraumatic. Eyes: EOMI, no conjunctival erythema appreciated ENT: Moist Mucus Membranes Neck: Trachea midline, Supple 11:06 Chest/axilla: Normal chest wall appearance and motion. Cardiovascular: Regular rate and rhythm. No edema appreciated Respiratory: Normal respirations, no respiratory distress appreciated Abdomen/GI: Non distended, soft Back: Normal ROM Skin: General appearance color normal 11:06 ENT: abrasions noted to the nose, a nasal septal hematoma is not appreciated. 11:06 Musculoskeletal/extremity: FROM appreciated to the right knee, no bony tenderness, no deformity appreciated. 11:06 Skin: Appearance: Color: normal in color. 11:06 Neuro: Motor: is normal. 11:06 Psych: Behavior/mood is pleasant, cooperative. Vital Signs: 11:20 BP 175 / 103; Pulse 91; Resp 18; Temp 97.8; Pulse Ox 95% ; tr6 13:08 BP 133 / 95; Pulse 92; Resp 18; Pulse Ox 95% ; tr6 MDM: 11:38 Patient medically screened. [facility] 13:42 Data reviewed: vital signs, nurses notes. Counseling: I had a detailed discussion with [facility] the patient and/or guardian regarding: the historical points, exam findings, and any diagnostic results supporting the discharge/admit diagnosis, radiology results, the need for outpatient follow up, to return to the emergency department if symptoms worsen or persist or if there are any questions or concerns that arise at home. ED course: Imaging studies negative. Patient is advised to follow up with ENT for further evaluation. Patient understood and agrees with the plan of care. . 01/01 11:16 Order name: CBC with Diff [facility] 01/01 11:16 Order name: BMP [facility] 01/01 11:16 Order name: Hand Right 3 View XRAY; Complete Time: 13:20 [facility] 01/01 11:16 Order name: CT Head C Spine; Complete Time: 12:20 [facility] 01/01 11:16 Order name: CBC with Automated Diff; Complete Time: 12:20 [facility] 01/01 11:16 Order name: Basic Metabolic Panel; Complete Time: 12:20 [facility] 01/01 11:16 Order name: Saline Lock; Complete Time: 11:29 [facility] 01/01 11:16 Order name: CT Facial Bones W/O Con; Complete Time: 12:20 [facility] Administered Medications: 14:01 Drug: Tetanus-Diphtheria Toxoid Adult 0.5 ml {Dental Specialist: [employer]. Exp: ld1 12/22/2021. Lot #: [id number]. } Route: IM; Site: right deltoid; 14:13 Follow up: Response: No adverse reaction tr6 Disposition: 01/01/21 13:48 Discharged to Home. Impression: Fracture of nasal bones. - Condition is Stable. - Discharge Instructions: Nasal Fracture. - Work release form, Medication Reconciliation Form, Thank You Letter, Antibiotic Education, Prescription Opioid Use form. - Follow up: Heydi Clayton MD; When: 2 - 3 days; Reason: Recheck today's complaints, Continuance of care, Re-evaluation by your physician. Addendum: 01/03/2021 06:32 Co-signature as Attending Physician, Silvano Catherine MD I agree with the assessment and t w4 plan of care. Signatures: Dispatcher [employer] EDMS Brandon Contreras, NAS PA Silvano Dunham MD MD tw4 Allegra Sawyer RN RN ld1 Do Downs RN RN tr6 Corrections: (The following items were deleted from the chart) 01/01 14:14 13:48 01/01/2021 13:48 Discharged to Home. Impression: Fracture of nasal bones. tr6 Condition is Stable. Forms are Medication Reconciliation Form, Thank You Letter, Antibiotic Education, Prescription Opioid Use. Follow up: Heydi Clayton; When: 2 - 3 days; Reason: Recheck today's complaints, Continuance of care, Re-evaluation by your physician. sudha
[2021-01-01] MEDS ORDERED: TETANUS & DIPHTHERIA TOX,ADULT 0.5 ML VIAL ONE (14:15)
[2021-01-01 14:19] VITALS: TEMP 97.8; O2SAT 95
[2021-01-01 14:20] VITALS: BP 133/95
== END 2021-01-01 14:14 | disposition home or self-care (01) ==
LOC: ER 10:37
DX: S02.2XXA Fracture of nasal bones, initial encounter for closed fracture (principal); Z23 Encounter for immunization; M79.641 Pain in right hand; S89.91XA Unspecified injury of right lower leg, initial encounter; W01.0XXA Fall on same level from slipping, tripping and stumbling without subsequent striking against object, initial encounter
CPT/HCPCS: 36415; 70450; 70486; 72125; 76377; 80048; 85025; 90471; 90714; 99284

== ENCOUNTER 2022-03-18 07:40 | Inpatient (IN) | payer OTHER, SELFPAY ==
[2022-03-18] MEDS ORDERED: NA CHLORIDE 0.9% 1,000 ML ONE (09:08)
[2022-03-18 09:21] LABS: Urine Blood Negative (Negative); Urine Glucose 3+ (Negative); Urine Protein Trace (Negative); Urine Specific Gravity 1.025 (1.005-1.030); Urine pH 5.5 (5.0-7.0)
[2022-03-18 09:37] LABS: Hematocrit 46.4 % (36.0-45.0); Lymphocytes % 18.2 % (15.3-44.8); MCV 87.8 fL (80-100); MPV 8.8 fL (7.6-11.3); RBC Red Blood Cell Count 5.29 M/uL (3.86-4.86)
[2022-03-18 09:38] LABS: Urine Bacteria 20-50 /HPF (<20); Urine Mucus MOD /HPF (NONE SEEN)
[2022-03-18 09:52] LABS: Albumin 3.1 g/dL (3.4-5.0); Bilirubin Total 0.9 mg/dL (0.2-1.0); Potassium 3.9 mmol/L (3.5-5.1); Protein, Total 7.4 g/dL (6.4-8.2)
--- NOTE | 2022-03-18 11:06 | RAD REPORT ---
EXAM DESCRIPTION: CT - Abdomen Pelvis W Contrast - 03/18/2022 10:31 am CLINICAL HISTORY: Abdominal pain COMPARISON: none. TECHNIQUE: Computed axial tomography of the abdomen pelvis was obtained. 100 cc Isovue-300 was admin istered intravenously. Oral contrast was not requested which limits evaluation of bowel and appendix All CT scans are performed using dose optimization technique as appropriate and may include automated exposure control or mA/KV adjustment according to patient size. FINDINGS: The liver, spleen, pancreas, adrenal and kidneys appear unremarkable. There is no evidence of diverticulitis. The proximal appendix is borderline enlarged. Mid appendix appears normal caliber. Distal appendix no t well seen. There is moderate stranding within the right upper pelvis near the appendix. No free air . No abscess. Hysterectomy. No adnexal mass IMPRESSION: These findings probably indicate an appendicitis. However this should be correlated clin ically. If the diagnosis remains uncertain then a CT scan with oral contrast and opacification of the terminal ileum/cecum would be recommended.
--- NOTE | 2022-03-18 11:39 | ER ---
Nurse's Notes [facility] Name: Mary Fischer Age: 57 yrs Sex: Female : 1965 Arrival Date: 03/18/2022 Time: 07:44 Bed 2 Private MD: Diagnosis: Unspecified acute appendicitis Presentation: 03/18 07:45 Chief complaint: EMS states: Toned out for abdominal pain x 2 days, denies N/V/D, last jl7 BM yesterday. Coronavirus screen: Vaccine status: Patient reports being unvaccinated. At this time, the client does not indicate any symptoms associated with coronavirus-19. Ebola Screen: No symptoms or risks identified at this time. Initial Sepsis Screen: Does the patient meet any 2 criteria? No. Patient's initial sepsis screen is negative. Does the patient have a suspected source of infection? No. Patient's initial sepsis screen is negative. Risk Assessment: Do you want to hurt yourself or someone else? Patient reports no desire to harm self or others. Onset of symptoms was March 16, 2022. Care prior to arrival: None. 07:45 Method Of Arrival: EMS: [facility] jl7 07:45 Acuity: MAMADOU 3 jl7 Triage Assessment: 07:47 General: Appears in no apparent distress. uncomfortable, Behavior is calm, cooperative, jl7 appropriate for age. Pain: Complains of pain in abdomen diffusely Pain currently is 8 out of 10 on a pain scale. Quality of pain is described as sharp. Neuro: Level of Consciousness is awake, alert, obeys commands, Oriented to person, place, time, situation. Cardiovascular: Patient's skin is warm and dry. Respiratory: Airway is patent Respiratory effort is even, unlabored, Respiratory pattern is regular, symmetrical. GI: Abdomen is round non-distended, Last BM was March 17, 2022. Derm: Skin is pink, warm \T\ dry. Historical: - Allergies: 07:47 Clarithromycin; jl7 07:47 PENICILLINS; jl7 - Home Meds: 07:47 None [Active]; jl7 - PMHx: 07:47 Chronic obstructive lung disease; jl7 - PSHx: 07:47 Total abdominal hysterectomy; jl7 - Immunization history:: Adult Immunizations not up to date. - Social history:: Smoking status: Patient reports the use of cigarette tobacco products, smokes one pack cigarettes per day. Screenin:32 Abuse screen: Denies threats or abuse. Nutritional screening: No deficits noted. tp1 Tuberculosis screening: No symptoms or risk factors identified. Fall Risk IV access (20 points). Ambulatory Aid- None/Bed Rest/Nurse Assist (0 pts). Gait- Normal/Bed Rest/Wheelchair (0 pts) Mental Status- Oriented to own ability (0 pts). Total Pena Fall Scale indicates No Risk (0-24 pts). Assessment: 09:32 General: Appears in no apparent distress. comfortable, Behavior is calm, cooperative. tp1 Pain: Complains of pain in abdomen Pain does not radiate. Pain currently is 8 out of 10 on a pain scale. Quality of pain is described as crampy, Pain began 2-3 days ago. Is continuous. Neuro: Level of Consciousness is awake, alert, obeys commands, Oriented to person, place, time, situation. Cardiovascular: Patient's skin is warm and dry. Respiratory: Airway is patent Respiratory effort is even, unlabored, Respiratory pattern is regular. GI: Abdomen is round Bowel sounds present X 4 quads. Abd is soft and non tender Patient currently denies diarrhea, nausea, vomiting, reported normal BM 03/17. : No signs and/or symptoms were reported regarding the genitourinary system. EENT: No signs and/or symptoms were reported regarding the EENT system. Derm: Skin is intact, Skin is pink, warm \T\ dry. Musculoskeletal: Circulation, motion, and sensation intact. 10:51 Reassessment: Patient appears in no apparent distress at this time. No changes from tp1 previously documented assessment. Patient and/or family updated on plan of care and expected duration. Pain level reassessed. Patient is alert, oriented x 3, equal unlabored respirations, skin warm/dry/pink. Denies need for pain medication. Pain: Complains of pain in abdomen Pain currently is 8 out of 10 on a pain scale. Quality of pain is described as crampy. 11:45 Reassessment: ER provider at bedside. tp1 11:50 Reassessment: Patient appears in no apparent distress at this time. No changes from tp1 previously documented assessment. Patient and/or family updated on plan of care and expected duration. Pain level reassessed. Patient is alert, oriented x 3, equal unlabored respirations, skin warm/dry/pink. Educated on need for NPO status, verbalized understanding. Educated on need for assistance with ambulation due to medication, verbalized understanding for need and how to use call light. Pain: Complains of pain in abdomen Pain does not radiate. Pain currently is 8 out of 10 on a pain scale. Quality of pain is described as crampy, Is continuous. Respiratory: Airway is patent Respiratory effort is even, unlabored, Respiratory pattern is regular. 13:00 Reassessment: Patient appears in no apparent distress at this time. No changes from tp1 previously documented assessment. Patient and/or family updated on plan of care and expected duration. Pain level reassessed. Patient is alert, oriented x 3, equal unlabored respirations, skin warm/dry/pink. 14:08 Reassessment: Patient appears in no apparent distress at this time. No changes from tp1 previously documented assessment. Patient and/or family updated on plan of care and expected duration. Pain level reassessed. Patient is alert, oriented x 3, equal unlabored respirations, skin warm/dry/pink. Pain: Complains of pain in abdomen Pain does not radiate. Pain currently is 2 out of 10 on a pain scale. Quality of pain is described as crampy. Neuro:. Cardiovascular: Patient's skin is warm and dry. Respiratory: Airway is patent Respiratory effort is even, unlabored, Respiratory pattern is regular. 14:10 Reassessment: report given to Liane, OR team. tp1 Vital Signs: 07:45 BP 118 / 67; Pulse 98; Resp 17; Temp 97.4; Pulse Ox 96% on R/A; Weight 90.72 kg; Height jl7 5 ft. 10 in. (177.80 cm); Pain 8/10; 09:32 BP 109 / 68; Pulse 89; Resp 17; Pulse Ox 95% on R/A; Pain 8/10; tp1 11:24 BP 122 / 66; Pulse 90; Pulse Ox 97% on R/A; Pain 8/10; tp1 11:50 BP 139 / 78; Pulse 91; Resp 17; Pulse Ox 96% on R/A; Pain 8/10; tp1 12:20 BP 126 / 69; Pulse 89; Pulse Ox 97% on R/A; Pain 2/10; tp1 14:09 BP 109 / 65; Pulse 81; Resp 15; Pulse Ox 94% on R/A; tp1 07:45 Body Mass Index 28.70 (90.72 kg, 177.80 cm) 7 ED Course: 07:44 Patient arrived in ED. jl7 07:47 Triage completed. jl7 07:47 Gómez Zaragoza MD is Attending Physician. rn 07:47 Arm band placed on right wrist. jl7 08:48 Mary Jane Giang, SISSY is Primary Nurse. jl7 09:12 Do Jeffrey is Primary Nurse. tp1 09:18 Inserted saline lock: 20 gauge in right antecubital area, using aseptic technique. tp1 Blood collected. 09:19 Initial lab(s) drawn, by me, sent to lab. COVID swab sent to lab. tp1 09:19 No provider procedures requiring assistance completed. tp1 09:31 Pulse ox on. NIBP on. tp1 09:43 Patient has correct armband on for positive identification. Bed in low position. Call tp1 light in reach. Side rails up X2. 09:43 Door closed. Noise minimized. Lights dimmed. Warm blanket given. tp1 10:33 CT Abd/Pelvis - IV Contrast Only In Process Unspecified. EDMS 11:38 Devonte Armando is Hospitalizing Provider. rn 14:14 Patient admitted, IV remains in place. tp1 Administered Medications: 09:23 Drug: NS 0.9% 1000 ml Route: IV; Rate: 1 bolus; Site: right antecubital; tp1 12:14 Follow up: Response: No adverse reaction; IV Status: Completed infusion; IV Intake: tp1 1000ml 11:51 Drug: morphine 4 mg Route: IVP; Infused Over: 4 mins; Site: right antecubital; tp1 12:20 Follow up: BP 126 / 69; Pulse 89 bpm; Pulse Ox 97% RA; Pain 2/10 Adult; Response: Pain tp1 is decreased 11:55 Drug: Cipro (ciprofloxacin) 400 mg Volume: 200 ml; Route: IVPB; Infused Over: 60 mins; tp1 Site: right antecubital; 12:57 Follow up: Response: No adverse reaction; IV Status: Completed infusion; IV Intake: tp1 200ml 12:19 Drug: Flagyl (metroNIDAZOLE) 500 mg Volume: 100 ml; Route: IVPB; Rate: 200 ml/hr; tp1 Infused Over: 30 mins; Site: right antecubital; 12:56 Follow up: Response: No adverse reaction; IV Status: Completed infusion tp1 12:57 Follow up: Response: No adverse reaction; IV Status: Completed infusion; IV Intake: tp1 100ml Medication: 09:32 VIS not applicable for this client. tp1 Intake: 12:14 IV: 1000ml; Total: 1000ml. tp1 12:57 IV: 200ml; Total: 1200ml. tp1 12:57 IV: 100ml; Total: 1300ml. tp1 Outcome: 11:38 Decision to Hospitalize by Provider. rn 14:12 Admitted to OR accompanied by nurse, via wheelchair, Report called to EHSAN Rob team tp1 14:12 Condition: good 14:16 Instructed on the need for admit. tp1 14:18 Patient left the ED. tp1 Signatures: Dispatcher [employer] EDMS Gómez Zaragoza MD MD rn Leal, Jahala, RN RN jl7 Parker, Tiffany tp1 Corrections: (The following items were deleted from the chart) 09:31 09:28 Inserted saline lock: 20 gauge in right antecubital area, using aseptic tp1 technique. Blood collected. tp1 09:31 09:28 Initial lab(s) drawn, by me, sent to lab. tp1 tp1 12:07 11:59 Reassessment: Patient appears in no apparent distress at this time. No changes tp1 from previously documented assessment. Patient and/or family updated on plan of care and expected duration. Pain level reassessed. Patient is alert, oriented x 3, equal unlabored respirations, skin warm/dry/pink. tp1 12:07 11:59 Pain: Complains of pain in abdomen Pain does not radiate. Pain currently is 8 out tp1 of 10 on a pain scale. Quality of pain is described as crampy, Is continuous, tp1 12:07 11:59 Respiratory: Airway is patent Respiratory effort is even, unlabored, Respiratory tp1 pattern is regular, tp1 13:52 11:45 Reassessment: provider at bedside tp1 tp1 14:14 14:10 Reassessment: report given to Sissy Rob tp1 tp1
--- NOTE | 2022-03-18 11:39 | EDPHYS ---
Physician Documentation [facility] Name: Mary Fischer Age: 57 yrs Sex: Female : 1965 Arrival Date: 03/18/2022 Time: 07:44 Bed 2 Private MD: ED Physician Gómez Zaragoza HPI: 03/18 10:05 This 57 yrs old Female presents to ER via EMS with complaints of Abdominal Pain. rn 10:05 The patient presents with abdominal pain that is diffuse. Onset: The symptoms/episode rn began/occurred yesterday. The symptoms do not radiate. Associated signs and symptoms: Pertinent positives: constipation, Pertinent negatives: blood in stools, fever, hematuria, vomiting, vomiting blood. Modifying factors: The symptoms are alleviated by nothing, the symptoms are aggravated by nothing. Severity of pain: At its worst the pain was moderate in the emergency department the pain is unchanged. The patient has not experienced similar symptoms in the past. The patient has not recently seen a physician. Historical: - Allergies: 07:47 Clarithromycin; jl7 07:47 PENICILLINS; jl7 - Home Meds: 07:47 None [Active]; jl7 - PMHx: 07:47 Chronic obstructive lung disease; jl7 - PSHx: 07:47 Total abdominal hysterectomy; jl7 - Immunization history:: Adult Immunizations not up to date. - Social history:: Smoking status: Patient reports the use of cigarette tobacco products, smokes one pack cigarettes per day. ROS: 10:05 Constitutional: Negative for fever, chills, and weight loss, Eyes: Negative for injury, rn pain, redness, and discharge, Neck: Negative for injury, pain, and swelling, Cardiovascular: Negative for chest pain, palpitations, and edema, Respiratory: Negative for shortness of breath, cough, wheezing, and pleuritic chest pain, Abdomen/GI: +abd pain and constipation Back: Negative for injury and pain, : Negative for injury, bleeding, discharge, and swelling, MS/Extremity: Negative for injury and deformity, Skin: Negative for injury, rash, and discoloration, Neuro: Negative for headache, weakness, numbness, tingling, and seizure. Exam: 10:05 Constitutional: This is a well developed, well nourished patient who is awake, alert, rn and in no acute distress. Head/Face: Normocephalic, atraumatic. Cardiovascular: Regular rate and rhythm. No pulse deficits. Respiratory: No increased work of breathing, no retractions or nasal flaring. Abdomen/GI: soft, mild diffuse tenderness without masses or peritoneal signs. Skin: Warm, dry MS/ Extremity: Pulses equal, no cyanosis. Neuro: Awake and alert, GCS 15 Vital Signs: 07:45 BP 118 / 67; Pulse 98; Resp 17; Temp 97.4; Pulse Ox 96% on R/A; Weight 90.72 kg; Height jl7 5 ft. 10 in. (177.80 cm); Pain 8/10; 09:32 BP 109 / 68; Pulse 89; Resp 17; Pulse Ox 95% on R/A; Pain 8/10; tp1 11:24 BP 122 / 66; Pulse 90; Pulse Ox 97% on R/A; Pain 8/10; tp1 11:50 BP 139 / 78; Pulse 91; Resp 17; Pulse Ox 96% on R/A; Pain 8/10; tp1 12:20 BP 126 / 69; Pulse 89; Pulse Ox 97% on R/A; Pain 2/10; tp1 14:09 BP 109 / 65; Pulse 81; Resp 15; Pulse Ox 94% on R/A; tp1 07:45 Body Mass Index 28.70 (90.72 kg, 177.80 cm) 7 MDM: 07:47 Patient medically screened. rn 11:37 Differential diagnosis: appendicitis, bowel obstruction, diverticulitis, COVID, UTI. rn Data reviewed: vital signs, nurses notes, lab test result(s), radiologic studies, CT scan, and as a result, I will admit patient. Counseling: I had a detailed discussion with the patient and/or guardian regarding: the historical points, exam findings, and any diagnostic results supporting the discharge/admit diagnosis, lab results, radiology results, the need for further work-up and treatment in the hospital. Response to treatment: the patient's symptoms have mildly improved after treatment, and as a result, I will admit patient. Admission orders: after a detailed discussion of the patient's condition and case, the admit orders are written by me. ED course: COnsulted with Dr. Vivar, states admit to hospitalist, QUENTINO, abx.. 03/18 07:57 Order name: CBC with Diff; Complete Time: 10:23 rn 03/18 07:57 Order name: CMP; Complete Time: 10:23 rn 03/18 07:57 Order name: Lipase; Complete Time: 10:23 rn 03/18 07:57 Order name: Urine Microscopic Only; Complete Time: 10:23 rn 03/18 07:57 Order name: SARS-COV-2 RT PCR (Document "Date of Onset" if Symptomatic) rn 03/18 09:21 Order name: Urine Dipstick-Ancillary; Complete Time: 10:23 EDIA 03/18 07:57 Order name: CT Abd/Pelvis - IV Contrast Only; Complete Time: 11:25 rn 03/18 07:57 Order name: IV Saline Lock; Complete Time: 10:12 rn 03/18 09:25 Order name: Urine --Ancillary (enter results) [facility] 03/18 09:41 Order name: Urine Culture EDIA 03/18 07:57 Order name: Labs collected and sent; Complete Time: 10:12 rn 03/18 07:57 Order name: Urine Dipstick-Ancillary (obtain specimen); Complete Time: 10: rn 03/18 11:26 Order name: NPO; Complete Time: 11:29 rn Administered Medications: 09:23 Drug: NS 0.9% 1000 ml Route: IV; Rate: 1 bolus; Site: right antecubital; tp1 12:14 Follow up: Response: No adverse reaction; IV Status: Completed infusion; IV Intake: tp1 1000ml 11:51 Drug: morphine 4 mg Route: IVP; Infused Over: 4 mins; Site: right antecubital; tp1 12:20 Follow up: BP 126 / 69; Pulse 89 bpm; Pulse Ox 97% RA; Pain 2/10 Adult; Response: Pain tp1 is decreased 11:55 Drug: Cipro (ciprofloxacin) 400 mg Volume: 200 ml; Route: IVPB; Infused Over: 60 mins; tp1 Site: right antecubital; 12:57 Follow up: Response: No adverse reaction; IV Status: Completed infusion; IV Intake: tp1 200ml 12:19 Drug: Flagyl (metroNIDAZOLE) 500 mg Volume: 100 ml; Route: IVPB; Rate: 200 ml/hr; tp1 Infused Over: 30 mins; Site: right antecubital; 12:56 Follow up: Response: No adverse reaction; IV Status: Completed infusion tp1 12:57 Follow up: Response: No adverse reaction; IV Status: Completed infusion; IV Intake: tp1 100ml Disposition Summary: 03/18/22 11:38 Hospitalization Ordered Hospitalization Status: Observation rn Provider: Devonte Armando rn Location: Telemetry/MedSurg (observation) rn Condition: Stable rn Problem: new rn Symptoms: have improved rn Bed/Room Type: Standard rn Room Assignment: [facility](03/18/22 13:53) [email or web address] Diagnosis - Unspecified acute appendicitis rn Forms: - Medication Reconciliation Form rn - SBAR form rn Signatures: Dispatcher [employer] EDGómez Ron MD MD rn Leal, Jahala, RN RN Madhavi Thomason1 Do Jeffrey tp1 Corrections: (The following items were deleted from the chart) 13:53 11:38 rn kj1
[2022-03-18] MEDS ORDERED: MORPHINE 4 MG/ML SYR ONE (11:45)
[2022-03-18] MEDS ORDERED: CIPROFLOXACIN 400mg IV 400 MG/200 ML BAG IV ONE (11:46)
[2022-03-18] MEDS ORDERED: METRONIDAZOLE 500mg IVPB 500 MG/100 ML BAG IV ONE (11:46)
--- NOTE | 2022-03-18 12:33 | P.HP ---
Certification for Inpatient Patient admitted to: Observation With expected LOS: <2 Midnights Practitioner: I am a practitioner with admitting privileges, knowledge of patient current condition, hospital course, and medical plan of care. Services: Services provided to patient in accordance with Admission requirements found in Title 42 Section 412.3 of the Code of Federal Regulations Patient History Date of Service: 03/18/22 Reason for admission: Abdominal pain History of Present Illness: 57-year-old man with a history of COPD presented to the emergency abdominal pain of onset 2 days ago. Patient stated she developed generalized abdominal pain after a meal of cornbread and coleslaw. Abdominal pain persisted and got worse last night. She therefore presented to the emergency department this morning where CT scan revealed possible acute appendicitis. General surgery contacted who recommended hospitalization. Patient with a history of COPD which is stable. Vitals are stable. Patient noted to have leukocytosis, no tachycardia and no fever to suggest sepsis. She is admitted for further management. Allergies clarithromycin [From Biaxin] Allergy (Unverified 12/20/14 05:21) Unknown Penicillins Allergy (Unverified 12/20/14 05:21) Unknown - Past Medical/Surgical History -: COPD Past Surgical History: Reviewed- Non-Contributory - Family History Father -: Cancer Mother -: Cancer (lung) - Social History Smoking Status: Current every day smoker (About 2 packs/day) Alcohol use: No CD- Drugs: No Place of Residence: Home Review of Systems Other: Except as documented, all other systems reviewed and negative. Physical Examination - Physical Exam General: Alert, In no apparent distress, Oriented x3 HEENT: Atraumatic, Normocephalic, PERRLA, Mucous membr. moist/pink, Sclerae nonicteric Neck: Supple, JVD not distended Respiratory: Clear to auscultation bilaterally, Normal air movement Cardiovascular: No edema, Regular rate/rhythm, Normal S1 S2, No murmurs Capillary refill: <2 Seconds Gastrointestinal: Normal bowel sounds, Soft and benign, Non-distended, Tenderness (Mild right lower quadrant tenderness. No RBT or guarding) Musculoskeletal: No swelling, No tenderness Integumentary: No rashes, No erythema, No cyanosis Neurological: Normal speech, Normal strength at 5/5 x4 extr, Cranial nerves 3-12 intact Lymphatics: No axilla or inguinal lymphadenopathy - Studies Laboratory Data (last 24 hrs) 03/18/22 09:18: Sodium 132 L, Potassium 3.9, BUN 9, Creatinine 0.91, Glucose 279 H, Total Bilirubin 0.9, AST 8 L, ALT 19, Alkaline Phosphatase 93, Lipase 40 L 03/18/22 09:18: WBC 16.2 H, Hgb 16.0 H, Hct 46.4 H, Plt Count 257 Assessment and Plan - Problems (Diagnosis) (1) Acute appendicitis Current Visit: Yes Status: Acute (2) Leukocytosis Current Visit: Yes Status: Acute (3) COPD (chronic obstructive pulmonary disease) Current Visit: Yes Status: Acute (4) Tobacco use Current Visit: Yes Status: Acute (5) Acute cystitis without hematuria Current Visit: Yes Status: Acute - Plan Placed under observation on the medical floor. General surgery-Dr. Vivar consulted who is planning lap appendectomy. Start IV Cipro and Flagyl. Prior history of allergy to penicillin with angioedema noted. Pain medication as needed IV hydration. COPD is stable. Bronchodilators as needed. Obtain blood cultures. - Advance Directives Does patient have a Living Will: No Does patient have a Durable POA for Healthcare: No
[2022-03-18] MEDS ORDERED: MORPHINE 2 MG/ML SYR IV PRN (13:32)
[2022-03-18] MEDS ORDERED: ONDANSETRON 4 MG/2 ML VIAL IV PRN (13:32)
[2022-03-18] MEDS ORDERED: D5 0.9 NS 1,000 ML IV SCH (13:32)
[2022-03-18] MEDS ORDERED: FENTANYL CITR 100 MCG/2 ML ONE (14:26)
[2022-03-18] MEDS ORDERED: propofoL 200 MG/20 ML VIAL IV ONE (14:26)
[2022-03-18] MEDS ORDERED: MIDAZOLAM HCL 2 MG/2 ML INJ ONE (14:27)
[2022-03-18] MEDS ORDERED: LIDOCAINE 1% MPF 5 ML VIAL ONE (14:27)
[2022-03-18] MEDS ORDERED: ONDANSETRON 4 MG/2 ML VIAL ONE (14:27)
[2022-03-18] MEDS ORDERED: ROCURONIUM 50 MG/5 ML VIAL IV ONE (14:27)
[2022-03-18] MEDS ORDERED: dexAMETHasone 10 MG/ML VIAL ONE (14:27)
--- NOTE | 2022-03-18 14:31 | P.CNS ---
Date of Consult: 03/18/22 Reason for consult: Abdominal pain History of present illness: Patient is a 57-year-old female presents with diffuse abdominal pain starting 2 days ago. She denies nausea, vomiting, diarrhea, constipation, blood in her stool, dysuria or hematuria. Patient denies sore throat, runny nose, cough, headaches, dizziness, chest pain, fever or chills. Patient does have some anorexia. Pain has radiated to the lower abdomen right side greater than left. Review of systems: Otherwise unremarkable Past medical history: COPD Past surgical history: Total abdominal hysterectomy Allergies: Clindamycin and penicillin Social history: Patient smokes tobacco and has been counseled. Patient denies alcohol use. Family history: Noncontributory Vital signs: Stable, afebrile Physical exam: Awake alert oriented x3 Head and neck exam: No masses Chest: Clear Heart: S1-S2 Abdomen: Soft, nondistended, positive bowel sounds, tenderness with minimal rebound in the right lower quadrant and no evidence of peritonitis elsewhere. Extremity: Neurovascular intact, nontender Neuro: Nonfocal Diagnostic data: CT of the abdomen shows inflammation around a dilated appendix consistent with acute appendicitis. White count is 16,000 with a left shift. Assessment: Likely acute appendicitis Plan/recommendation: Admit, n.p.o., IV fluids, IV antibiotics and to the OR for laparoscopic appendectomy possible open. Patient resents risk benefits and alternatives and agrees to procedure. CC:
[2022-03-18] MEDS ORDERED: Ringers Lactate 1,000 ML IV ONE (14:32)
[2022-03-18] MEDS ORDERED: BUPIVACAINE 0.5% PF 10 ML VIAL ONE (14:36)
[2022-03-18] MEDS ORDERED: KETOROLAC 30 MG/ML INJ ONE (15:37)
[2022-03-18] MEDS ORDERED: NEOSTIGMINE 1 MG/ML -10 ML VIAL ONE (15:38)
[2022-03-18] MEDS ORDERED: GLYCOPYRROLATE 0.2 MG/ML SYR ONE (15:38)
[2022-03-18] MEDS ORDERED: Mastisol Adhesive Liq ONE (15:44)
--- NOTE | 2022-03-18 15:58 | P.OP ---
Date of Service: 03/18/22 Preop diagnosis: Acute appendicitis Postop diagnosis: Acute suppurative appendicitis Procedure performed: Laparoscopic appendectomy Surgeon: Miguel Angel Vivar MD Gas Operator: Elisabeth STOCK Estimated blood loss: Minimal Specimen: Appendix Findings: As above Anesthesia: General Complications: None Drains: None Fluids and blood products: Nonapplicable Disposition: Recovery room Operative note: Patient brought to the OR and placed in the supine position. General anesthesia begun. Patient prepped and draped in the usual sterile fashion. 15 blade used to make a 1 cm supraumbilical midline incision. Subcutaneous tissue divided and fascia identified and divided. #1 Vicryl stay suture placed. Peritoneal cavity entered with sharp and blunt dissection. 12 mm trocar placed into the peritoneal cavity under direct vision. Pneumoperitoneum established and 2 5 mm trochars placed. 1 placed in the suprapubic region and another 1 in the left lower quadrant. Laparoscopy revealed acute suppurative appendicitis in the right lower quadrant with some creamy looking fluid in the right lower quadrant and pelvis. This area was irrigated and that fluid was aspirated. Base of the appendix on the cecum was identified. Endo TATIANA stapling device was utilized to divide the base of the appendix on the cecum. Mesoappendix was divided as well with Endo TATIANA stapling device. Appendix was retrieved through the umbilicus via Endo Catch bag. The appendix appeared to be very thin on the distal portion. Frozen section was requested by the pathology department just to make sure it was indeed the appendix and it was confirmed. Right lower quadrant pelvis thoroughly irrigated and effluent was clear. No evidence of bleeding or bowel injury appreciated. All trochars removed under direct vision. Stay sutures tied to each other to reapproximate the fascial defect. Subcutaneous wounds irrigated and bleeding controlled with cautery. 3-0 chromic used to approximate subcutaneous tissue and close skin. Sterile dressing applied and patient awakened. Patient taken to recovery room in good general condition. CC:
[2022-03-18] MEDS ORDERED: ALBUTEROL 2.5 MG/3 ML NEB SOL ONE (16:11)
[2022-03-18] MEDS ORDERED: HYDROCODONE/APAP 7.5/325 MG TAB PO PRN (16:32)
[2022-03-18] MEDS ORDERED: HYDROMORPHONE HCL 1 MG/ML INJ IV PRN (16:32)
[2022-03-18] MEDS ORDERED: DIPHENHYDRAMINE 50 MG/ML VIAL ONE (16:46)
[2022-03-18 17:28] VITALS: BMI 28.7
[2022-03-18] MEDS: HEPARIN 5000 UNIT/ML 1 ML VIAL SQ SCH (17:56)
[2022-03-18] MEDS: Ringers Lactate 1,000 ML IV SCH (17:57)
[2022-03-18] MEDS: METRONIDAZOLE 500mg IVPB 500 MG/100 ML BAG IV SCH (17:57)
[2022-03-18] MEDS: CIPROFLOXACIN 400mg IV 400 MG/200 ML BAG IV SCH (20:19)
[2022-03-19] MEDS ORDERED: DIPHENHYDRAMINE 50 MG/ML VIAL IV PRN (00:21)
[2022-03-19] MEDS: METRONIDAZOLE 500mg IVPB 500 MG/100 ML BAG IV SCH ×2 (01:14→09:22)
[2022-03-19] MEDS: HEPARIN 5000 UNIT/ML 1 ML VIAL SQ SCH ×2 (01:14→09:21)
[2022-03-19 03:52] LABS: Hematocrit 37.8 % (36.0-45.0); Lymphocytes % 8.2 % (15.3-44.8); MCV 87.6 fL (80-100); RBC Red Blood Cell Count 4.32 M/uL (3.86-4.86)
[2022-03-19 03:59] LABS: Albumin 2.3 g/dL (3.4-5.0); Bilirubin Total 0.4 mg/dL (0.2-1.0); Magnesium 1.7 mg/dL (1.8-2.4); Phosphorus 2.6 mg/dL (2.5-4.9); Potassium 4.4 mmol/L (3.5-5.1); Protein, Total 6.1 g/dL (6.4-8.2)
[2022-03-19 05:02] VITALS: TEMP 97.1
[2022-03-19] MEDS ORDERED: D50W 25 GM/50 ML SYRINGE IV PRN (07:42)
[2022-03-19] MEDS ORDERED: GLUCAGON 1 MG/VIAL IM PRN (07:42)
[2022-03-19] MEDS ORDERED: D10W 125 ML IV PRN (07:47)
[2022-03-19 08:31] VITALS: BP 100/56
[2022-03-19] MEDS ORDERED: INSULIN GLARGINE 100 UNIT/ML SQ SCH (09:00)
[2022-03-19] MEDS ORDERED: MAGNESIUM SULFATE 1 gm IVPB 1 GM/100 ML BAG IV ONE (09:00)
[2022-03-19] MEDS: CIPROFLOXACIN 400mg IV 400 MG/200 ML BAG IV SCH (09:22)
[2022-03-19] MEDS: Ringers Lactate 1,000 ML IV SCH (09:23)
--- NOTE | 2022-03-19 09:29 | P.PN ---
Date of Service: 03/19/22 Subjective: Patient is awake and alert. Patient is tolerating diet. Patient is ambulating. Pain is controlled on p.o. pain medication. Objective: Vital signs stable, afebrilewhite count is down to 11.9 Abdomen: Soft, nondistended, positive bowel sounds with minimal tenderness around incision Assessment: Status post lap appendectomy Plan: Patient cleared from surgical standpoint for discharge. Discharge instructions given to patient. Antibiotics and pain medication called into patient's pharmacy. CC:
--- NOTE | 2022-03-19 11:01 | P.DS ---
Admission Date: 03/18/22 Discharge Date: 03/19/22 Disposition: ROUTINE DISCHARGE Discharge Condition: GOOD Reason for Admission: Abdominal pain - Problems (1) Acute appendicitis Status: Acute (2) Leukocytosis Status: Acute (3) COPD (chronic obstructive pulmonary disease) Status: Acute (4) Tobacco use Status: Acute (5) Acute cystitis without hematuria Status: Acute Brief History of Present Illness: 57-year-old man with a history of COPD presented to the emergency abdominal pain of onset 2 days ago. Patient stated she developed generalized abdominal pain after a meal of cornbread and coleslaw. Abdominal pain persisted and got worse last night. She therefore presented to the emergency department this morning where CT scan revealed possible acute appendicitis. General surgery contacted who recommended hospitalization. Patient with a history of COPD which is stable. Vitals are stable. Patient noted to have leukocytosis, no tachycardia and no fever to suggest sepsis. She is admitted for further management. Hospital Course: Patient admitted to the medical floor and started on IV antibiotics, seen by general surgery-Dr. Vivar who performed lap appendectomy. Patient noted to have suppurative appendicitis. She was kept overnight on IV antibiotics. Vitals stable. She denies any abdominal pain today, she has tolerated diet and deemed stable for discharge per Dr. Vivar. She is prescribed oral Flagyl and Cipro on discharge. Her hemoglobin A1c is 11.8 indicating uncontrolled diabetes. Glimepiride 1 mg daily prescribed. Vital Signs/Physical Exam: Temp Pulse Resp BP Pulse Ox 97.1 F 76 18 100/56 L 97 03/19/22 08:00 03/19/22 08:00 03/19/22 10:21 03/19/22 08:00 03/19/22 10:21 General: Alert, In no apparent distress, Oriented x3 HEENT: Mucous membr. moist/pink Neck: JVD not distended Respiratory: Clear to auscultation bilaterally, Normal air movement Cardiovascular: No edema, Regular rate/rhythm, Normal S1 S2 Gastrointestinal: Normal bowel sounds, Soft and benign, Non-distended, No tenderness Musculoskeletal: No swelling Integumentary: No rashes Neurological: Normal strength at 5/5 x4 extr Laboratory Data at Discharge: WBC 11.9 K/uL (4.3-10.9) H D 03/19/22 03:29 Hgb 13.1 g/dL (12.0-15.0) D 03/19/22 03:29 Hct 37.8 % (36.0-45.0) D 03/19/22 03:29 Plt Count 207 K/uL (152-406) 03/19/22 03:29 Sodium 131 mmol/L (136-145) L 03/19/22 03:29 Potassium 4.4 mmol/L (3.5-5.1) 03/19/22 03:29 BUN 10 mg/dL (7-18) 03/19/22 03:29 Creatinine 0.78 mg/dL (0.55-1.3) 03/19/22 03:29 Glucose 348 mg/dL (74-106) H 03/19/22 03:29 Phosphorus 2.6 mg/dL (2.5-4.9) 03/19/22 03:29 Magnesium 1.7 mg/dL (1.8-2.4) L 03/19/22 03:29 Total Bilirubin 0.4 mg/dL (0.2-1.0) 03/19/22 03:29 AST 7 U/L (15-37) L 03/19/22 03:29 ALT 14 U/L (12-78) 03/19/22 03:29 Alkaline Phosphatase 79 U/L (45-117) 03/19/22 03:29 Lipase 40 U/L (73-393) L 03/18/22 09:18 Home Medications: Glimepiride 1 mg PO DAILY #30 tablet 03/19/22 New Medications: Glimepiride 1 mg PO DAILY #30 tablet Physician Discharge Instructions: Remove outer dressing in a.m. and shower Keep Steri-Strips on at all times Incentive spirometry as ordered Cipro, Flagyl and Tylenol 3 called into patient's pharmacy Diet: AHA Activity: No lifting more than 10 lbs Followup: NONE,NONE [Primary Care Provider] - Miguel Angel Vivar MD [ACTIVE - CAN ADMIT] - 1 Week Time spent managing pt's care (in minutes): 35
[2022-03-19] MEDS ORDERED: INSULIN -REGULAR HUMAN 50 UNIT/0.5 ML ML SQ SCH (11:30)
[2022-03-19 14:16] VITALS: O2SAT 95
== END 2022-03-19 11:30 | disposition home or self-care (01) | DRG 342 ==
LOC: ER 07:40 → ERHOLD 12:23 → 2ND 14:08 → OBSVTOIN 18:31
PROVIDERS: ADMIT Internal Medicine; ATTEND Internal Medicine
PROC: 0DTJ4ZZ Resection of Appendix, Percutaneous Endoscopic Approach (ICD-10-PCS; principal; 2022-03-18 15:00)
DX: K35.80 Unspecified acute appendicitis (principal); N30.00 Acute cystitis without hematuria; J44.9 Chronic obstructive pulmonary disease, unspecified; Z88.0 Allergy status to penicillin; F17.210 Nicotine dependence, cigarettes, uncomplicated; Z20.822 Contact with and (suspected) exposure to COVID-19
CPT/HCPCS: 36415; 74177; 80053; 81003; 81015; 82947; 83036; 83690; 83735; 84100; 85025; 87040; 87086; 87088; 88304; 88329; 94010; 96361; 96365; 96375; 99285; G0378; J0744; J1100; J1170; J1200; J1644; J2250; J2405; J2704; J2710; J3010; J3475; J3490; J7030; J7120; Q9967; U0003

== ENCOUNTER 2022-08-12 15:50 | Emergency (ER) | payer SELFPAY ==
[2022-08-12] MEDS ORDERED: METHYLPREDNISOLONE 125 MG INJ ONE (17:10)
[2022-08-12] MEDS ORDERED: LEVALBUTEROL 1.25 MG/3 ML NEB ONE (17:10)
[2022-08-12 17:26] LABS: Absolute Lymphocytes (CBC) 3.5 K/uL (0.7-4.9); Hematocrit 45.6 % (36.0-45.0); Lymphocytes % 37.9 % (15.3-44.8); MCV 87.1 fL (80-100); MPV 9.2 fL (7.6-11.3); RBC Red Blood Cell Count 5.23 M/uL (3.86-4.86)
[2022-08-12 17:53] LABS: Troponin High Sensitivity 45.8 pg/mL (<58.9)
[2022-08-12 17:55] LABS: Potassium 3.9 mmol/L (3.5-5.1)
--- NOTE | 2022-08-12 18:06 | RAD REPORT ---
[facility] CLINICAL HISTORY: sob COMPARISON: 2019 FINDINGS: A few areas of subsegmental atelectasis within the lungs. No consolidation seen. The heart is borderline enlarged
--- NOTE | 2022-08-12 18:23 | EDPHYS ---
Physician Documentation [facility] Name: Mary Fischer Age: 57 yrs Sex: Female : 1965 Arrival Date: 08/12/2022 Time: 15:55 Bed 8 Private MD: ED Physician Andres Clarke HPI: 08/12 18:28 This 57 yrs old Female presents to ER via Ambulatory with complaints of Breathing kdr Difficulty. 18:28 Patient states that she has not been able to breathe well for the last couple of days. kdr She states that the breathing gets worse at night. She taken some DayQuil before she came without significant relief. She still smokes a pack and a half of cigarettes per day.. Onset: The symptoms/episode began/occurred gradually, 3 day(s) ago. Severity of symptoms: At their worst the symptoms were moderate severe just prior to arrival, in the emergency department the symptoms are unchanged. The patient has not experienced similar symptoms in the past. The patient has not recently seen a physician. Historical: - Allergies: 16:01 PENICILLINS; ss 16:01 Clarithromycin; ss - PMHx: 16:01 Chronic obstructive lung disease; ss - PSHx: 16:01 Total abdominal hysterectomy; ss - Immunization history:: Adult Immunizations up to date. - Social history:: Smoking status: Patient reports the use of cigarette tobacco products, smokes two packs cigarettes per day. ROS: 18:28 Constitutional: Negative for fever, chills, and weight loss, Eyes: Negative for injury, kdr pain, redness, and discharge, ENT: Negative for injury, pain, and discharge, Neck: Negative for injury, pain, and swelling, Cardiovascular: Negative for chest pain, palpitations, and edema, Abdomen/GI: Negative for abdominal pain, nausea, vomiting, diarrhea, and constipation, Back: Negative for injury and pain, : Negative for injury, bleeding, discharge, and swelling, MS/Extremity: Negative for injury and deformity, Skin: Negative for injury, rash, and discoloration, Neuro: Negative for headache, weakness, numbness, tingling, and seizure activity. 18:28 Respiratory: Positive for dyspnea on exertion, shortness of breath, wheezing. kdr Exam: 18:28 Constitutional: This is a well developed, well nourished patient who is awake, alert, kdr and in no acute distress. Head/Face: Normocephalic, atraumatic. Eyes: Pupils equal round and reactive to light, extra-ocular motions intact. Lids and lashes normal. Conjunctiva and sclera are non-icteric and not injected. Cornea within normal limits. Periorbital areas with no swelling, redness, or edema. Neck: Trachea midline, no thyromegaly or masses palpated, and no cervical lymphadenopathy. Supple, full range of motion without nuchal rigidity, or vertebral point tenderness. No Meningismus. Chest/axilla: Normal chest wall appearance and motion. Nontender with no deformity. No lesions are appreciated. Cardiovascular: Regular rate and rhythm with a normal S1 and S2. No gallops, murmurs, or rubs. Normal PMI, no JVD. No pulse deficits. Abdomen/GI: Soft, non-tender, with normal bowel sounds. No distension or tympany. No guarding or rebound. No evidence of tenderness throughout. Back: No spinal tenderness. No costovertebral tenderness. Full range of motion. Skin: Warm, dry with normal turgor. Normal color with no rashes, no lesions, and no evidence of cellulitis. MS/ Extremity: Pulses equal, no cyanosis. Neurovascular intact. Full, normal range of motion. Neuro: Awake and alert, GCS 15, oriented to person, place, time, and situation. Cranial nerves II-XII grossly intact. Motor strength 5/5 in all extremities. Sensory grossly intact. Cerebellar exam normal. Normal gait. Psych: Awake, alert, with orientation to person, place and time. Behavior, mood, and affect are within normal limits. 18:28 Respiratory: mild respiratory distress is noted, Respirations: normal, symetrical, no use of accessory muscles, no grunting, no evidence of nasal flaring, no appreciated paradoxical movements, no prolonged exhalations, no pursed lip breathing, no retractions, shallow respirations. Vital Signs: 15:59 BP 133 / 82; Pulse 104; Resp 18; Temp 98.6; Pulse Ox 95% on R/A; Weight 90.72 kg; ss Height 5 ft. 0 in. (152.40 cm); Pain 0/10; 16:15 Pulse Ox 97% on R/A; ap3 16:45 BP 120 / 78; ap3 18:00 BP 120 / 74; Pulse 95; Resp 18; Pulse Ox 95% on R/A; db 19:00 BP 115 / 64; Pulse 94; Resp 18; Pulse Ox 95% on R/A; db 15:59 Body Mass Index 39.06 (90.72 kg, 152.40 cm) ss MDM: 18:23 Patient medically screened. kdr 18:28 Data reviewed: vital signs, nurses notes, lab test result(s), radiologic studies. kdr Counseling: I had a detailed discussion with the patient and/or guardian regarding: the historical points, exam findings, and any diagnostic results supporting the discharge/admit diagnosis, lab results, radiology results, the need for outpatient follow up. 08/12 16:45 Order name: Basic Metabolic Panel; Complete Time: 18:20 kdr 08/12 16:45 Order name: CBC with Diff; Complete Time: 18:20 kdr 08/12 16:45 Order name: NT PRO-BNP; Complete Time: 18:20 kdr 08/12 16:45 Order name: Troponin HS; Complete Time: 18:20 kdr 08/12 16:45 Order name: XRAY Chest (1 view); Complete Time: 18:20 kdr 08/12 16:45 Order name: EKG; Complete Time: 16:46 kdr 08/12 16:45 Order name: Cardiac monitoring; Complete Time: 17:16 kdr 08/12 16:45 Order name: EKG - Nurse/Tech; Complete Time: 17:16 kdr 08/12 16:45 Order name: IV Saline Lock; Complete Time: 17:01 kdr 08/12 16:45 Order name: Labs collected and sent; Complete Time: 17:01 kdr 08/12 16:45 Order name: O2 Per Protocol; Complete Time: 16:48 kdr 08/12 16:45 Order name: O2 Sat Monitoring; Complete Time: 16:48 kdr Administered Medications: 17:10 Drug: SOLU-Medrol (methylPrednisoLONE) 125 mg Route: IVP; Site: right forearm; bp 19:24 Follow up: Response: No adverse reaction db 17:10 Drug: Xopenex (levalbuterol) (3) 1.25 mg Route: Inhalation; bp 19:24 Follow up: Response: No adverse reaction db Disposition Summary: 08/12/22 18:23 Discharge Ordered Location: Home kdr Problem: an acute exacerbation kdr Symptoms: have improved kdr Condition: Stable kdr Diagnosis - COPD/ Chronic obstructive pulmonary disease with (acute) exacerbation kdr Followup: kdr - With: Private Physician - When: 2 - 3 days - Reason: If symptoms return, Further diagnostic work-up, Recheck today's complaints, Continuance of care, Re-evaluation by your physician Discharge Instructions: - Discharge Summary Sheet kdr - Chronic Obstructive Pulmonary Disease Exacerbation kdr Forms: - Medication Reconciliation Form kdr - Thank You Letter kdr - Antibiotic Education kdr - Prescription Opioid Use kdr - Work release form db Prescriptions: - albuterol sulfate 90 mcg/actuation Inhalation HFA aerosol inhaler - inhale 2 puff by INHALATION route every 4-6 hours As needed; 2 puff; Refills: kdr 0, Product Selection Permitted - Zofran 4 mg Oral Tablet - take 1 tablet by ORAL route every 4-6 hours As needed; 12 tablet; Refills: 0, kdr Product Selection Permitted - Medrol (Tony) 4 mg Oral Tablets, Dose Pack - take 1 tablet by ORAL route as directed - follow package instructions; 1 kdr packet; Refills: 0, Product Selection Permitted Signatures: Dispatcher [employer] Andres Santiago MD MD kdr Sandra Mccray RN RN ss Todd Ventura RN RN Jessica Stout RN db
--- NOTE | 2022-08-12 18:23 | ER ---
Nurse's Notes [facility] Name: Mary Fischer Age: 57 yrs Sex: Female : 1965 Arrival Date: 08/12/2022 Time: 15:55 Bed 8 Private MD: Diagnosis: COPD/ Chronic obstructive pulmonary disease with (acute) exacerbation Presentation: 08/12 15:59 Chief complaint: Patient states: i had 6 teeth removed July 25 and now i cant ss breathe. I have vicks vapor rub on my feet and i cant breathe, it gets worse at night. I took dayquil before I came. I am a smoker. here is my empty cigarette container. I need a doctor note before I can go back to work. Coronavirus screen: Vaccine status: Patient reports being unvaccinated. Client denies travel out of the [place] in the last 14 days. Ebola Screen: Patient negative for fever greater than or equal to 101.5 degrees Fahrenheit, and additional compatible Ebola Virus Disease symptoms Patient denies exposure to infectious person. Patient denies travel to an Ebola-affected area in the 21 days before illness onset. Initial Sepsis Screen: Does the patient meet any 2 criteria? No. Patient's initial sepsis screen is negative. Does the patient have a suspected source of infection? No. Patient's initial sepsis screen is negative. Risk Assessment: Do you want to hurt yourself or someone else? Patient reports no desire to harm self or others. 15:59 Method Of Arrival: Ambulatory ss 15:59 Acuity: MAMADOU 4 ss 16:16 Onset of symptoms is unknown. ap3 Triage Assessment: 16:01 General: Appears in no apparent distress. obese, unkempt, Behavior is calm, ss cooperative, appropriate for age. Pain: Denies pain. Respiratory: Reports shortness of breath Onset: The symptoms/episode began/occurred gradually, the patient has mild shortness of breath. Historical: - Allergies: 16:01 PENICILLINS; ss 16:01 Clarithromycin; ss - PMHx: 16:01 Chronic obstructive lung disease; ss - PSHx: 16:01 Total abdominal hysterectomy; ss - Immunization history:: Adult Immunizations up to date. - Social history:: Smoking status: Patient reports the use of cigarette tobacco products, smokes two packs cigarettes per day. Screenin:16 Abuse screen: Denies threats or abuse. Nutritional screening: No deficits noted. ap3 Tuberculosis screening: No symptoms or risk factors identified. 18:00 Fall Risk None identified. No fall in past 12 months (0 pts). No secondary diagnosis (0 db pts). IV access (20 points). Ambulatory Aid- None/Bed Rest/Nurse Assist (0 pts). Gait- Normal/Bed Rest/Wheelchair (0 pts) Mental Status- Oriented to own ability (0 pts). Total Pena Fall Scale indicates No Risk (0-24 pts). Assessment: 16:16 General: Behavior is cooperative. Pain: Denies pain. Neuro: Level of Consciousness is ap3 awake, alert, obeys commands, Oriented to person, place, time. Cardiovascular: Patient's skin is warm and dry. Cardiovascular: Rhythm is regular. Respiratory: Airway is patent Respiratory effort is even, unlabored. 18:30 Reassessment: Patient appears in no apparent distress at this time. Patient and/or db family updated on plan of care and expected duration. Pain level reassessed. Patient is alert, oriented x 3, equal unlabored respirations, skin warm/dry/pink. Patient states feeling better. Patient states symptoms have improved. Respiratory: Breath sounds are coarse. Vital Signs: 15:59 BP 133 / 82; Pulse 104; Resp 18; Temp 98.6; Pulse Ox 95% on R/A; Weight 90.72 kg; Height 5 ft. 0 in. (152.40 cm); Pain 0/10; 16:15 Pulse Ox 97% on R/A; ap3 16:45 BP 120 / 78; ap3 18:00 BP 120 / 74; Pulse 95; Resp 18; Pulse Ox 95% on R/A; db 19:00 BP 115 / 64; Pulse 94; Resp 18; Pulse Ox 95% on R/A; db 15:59 Body Mass Index 39.06 (90.72 kg, 152.40 cm) ED Course: 15:55 Patient arrived in ED. rg4 16:00 Andres Clarke MD is Attending Physician. kdr 16:01 Triage completed. ss 16:01 Arm band placed on left wrist. ss 16:09 Renay Kennedy, SISSY is Primary Nurse. ap3 16:16 Patient has correct armband on for positive identification. Call light in reach. Pulse ap3 ox on. NIBP on. Door closed. Noise minimized. 16:50 Inserted saline lock: 20 gauge in right forearm, using aseptic technique. Blood bp collected. 17:29 XRAY Chest (1 view) In Process Unspecified. EDMS 18:00 No provider procedures requiring assistance completed. IV discontinued, intact, db bleeding controlled, No redness/swelling at site. 19:23 Primary Nurse role handed off by Renay Kennedy, RN mw2 Administered Medications: 17:10 Drug: SOLU-Medrol (methylPrednisoLONE) 125 mg Route: IVP; Site: right forearm; bp 19:24 Follow up: Response: No adverse reaction db 17:10 Drug: Xopenex (levalbuterol) (3) 1.25 mg Route: Inhalation; bp 19:24 Follow up: Response: No adverse reaction db Medication: 16:16 VIS not applicable for this client. ap3 Outcome: 18:00 Discharged to home ambulatory. db 18:00 Condition: stable 18:00 Discharge instructions given to patient, Instructed on discharge instructions, follow up and referral plans. Demonstrated understanding of instructions, Prescriptions given X 3. 18:23 Discharge ordered by . kdr 19:25 Patient left the ED. db Signatures: Dispatcher [employer] EDMS Andres Clarke MD MD kdr Smirch, Shelby RN RN Ivy Franco Todd Mejia RN RN bp Renay Kennedy, SISSY RN ap3 Allison Salazar mw2 Jessica Rey RN RN db
[2022-08-13 01:05] VITALS: TEMP 98.6
[2022-08-13 01:21] VITALS: O2SAT 95
[2022-08-13 01:22] VITALS: BP 115/64
--- NOTE | 2022-08-15 17:39 | EKG ---
Test Date: 2022-08-14 Test Time: 15:22:08 Printer Slotter Helper: HB MEASUREMENT RESULTS: Intervals: Rate: 109 DE: 132 QRSD: 112 QT: 364 QTc: 490 [place]: P: 54 DE: 132 QRS: 68 T: 0 INTERPRETIVE STATEMENTS: Sinus tachycardia Possible Left atrial enlargement Nonspecific T wave abnormality Abnormal ECG Compared to ECG 08/14/2022 15:21:02 T-wave abnormality now present Left bundle-branch block no longer present ST (T wave) deviation no longer present Electronically Signed On 08-15-22 17:37:35 ROSE GRADING SUPERVISOR by Michael Lopez
== END 2022-08-12 19:25 | disposition home or self-care (01) ==
LOC: ER 15:50
DX: J44.1 Chronic obstructive pulmonary disease with (acute) exacerbation (principal); F17.210 Nicotine dependence, cigarettes, uncomplicated
CPT/HCPCS: 36415; 71045; 80048; 83880; 84484; 85025; 93005; 96374; 99284; J2930; J7614

== ENCOUNTER 2022-08-14 15:01 | Inpatient (IN) | payer SELFPAY ==
[2022-08-14 15:37] LABS: Absolute Lymphocytes (CBC) 2.4 K/uL (0.7-4.9); Hematocrit 44.3 % (36.0-45.0); Lymphocytes % 18.2 % (15.3-44.8); MCV 90.7 fL (80-100); MPV 9.2 fL (7.6-11.3); RBC Red Blood Cell Count 4.89 M/uL (3.86-4.86)
[2022-08-14 15:45] LABS: Protime INR 0.99
[2022-08-14] MEDS ORDERED: FENTANYL CITR 100 MCG/2 ML ONE ×3 (15:45→19:19)
[2022-08-14 15:53] LABS: Arterial Blood Carboxyhemoglob 1.4 % (0-1.5); Blood O2 Saturation 97.5 % (92-98.5)
[2022-08-14] MEDS ORDERED: LEVALBUTEROL 1.25 MG/3 ML NEB ONE (15:54)
[2022-08-14] MEDS ORDERED: METHYLPREDNISOLONE 125 MG INJ ONE (15:54)
[2022-08-14] MEDS ORDERED: IPRATROPIUM BROM 0.5MG/2.5ML ONE (15:54)
[2022-08-14] MEDS ORDERED: MAGNESIUM SULFATE 1 gm IVPB 1 GM/100 ML BAG IV ONE (15:54)
[2022-08-14 16:00] LABS: Albumin 3.3 g/dL (3.4-5.0); Bilirubin Total 0.5 mg/dL (0.2-1.0)
[2022-08-14] MEDS ORDERED: DIAZEPAM 10 MG/2 ML INJ SYRINGE ONE ×2 (16:10→17:38)
--- NOTE | 2022-08-14 16:18 | RAD REPORT ---
EXAM DESCRIPTION: RAD - Chest Single View - 08/14/2022 4:01 pm CLINICAL HISTORY: respiratory failure Chest pain. COMPARISON: Chest Single View dated 08/12/2022; Chest Pa And Lat (2 Views) dated 09/18/2019; Chest Pa And Lat (2 Views) dated 08/11/2017 FINDINGS: Portable technique limits examination quality. Tip of the endotracheal tube is just above the raphael at the level of the inferior margin of the aort ic arch. Enteric tube descends into the stomach. Moderate bilateral pulmonary opacities are seen whic h may represent pulmonary edema or pneumonia.The heart is mildly enlarged size.
[2022-08-14 16:19] LABS: SARS-COV-2 RT PCR NEGATIVE (NEGATIVE)
--- NOTE | 2022-08-14 16:30 | EDPHYS ---
Physician Documentation [facility] Name: Mary Fischer Age: 57 yrs Sex: Female : 1965 Arrival Date: 08/14/2022 Time: 15:01 Bed 28 Private MD: ED Physician Paco Blanca HPI: 08/14 15:18 This 57 yrs old Female presents to ER via Unassigned with complaints of respiratory rn distress. 15:18 The patient has shortness of breath at rest. Onset: The symptoms/episode began/occurred rn at an unknown time. Duration: The symptoms are continuous. Unable to obtain HPI due to Intubated. HPI obtained by EMS, called 911 for respiratory distress, would not keep oxygen mask on, given ketamine for pain and anxiolysis, initially worked but proceeded to decreased mental status and became unresponsive, intubated in field by EMS. . Historical: - Allergies: 16:36 Clarithromycin; ph 16:36 PENICILLINS; ph - PMHx: 16:36 Chronic obstructive lung disease; ph - PSHx: 16:36 Total abdominal hysterectomy; ph - Immunization history:: Adult Immunizations unknown. - Social history:: Smoking status: unknown. - History obtained from: EMS. - Unable to obtain history due to: intubated. ROS: 15:18 Unable to obtain ROS due to intubated. rn Exam: 15:18 Constitutional: This is a well developed, well nourished patient who is intubated, red rn in the face, coughing. Head/Face: Normocephalic, atraumatic. Eyes: Periorbital areas with no swelling, redness, or edema. Cardiovascular: tachycardic, regular Respiratory: + tachypnea, intubated, coarse bilateral breath sounds with wheezing. Diminished at bases. Abdomen/GI: Soft, non-tender Skin: Warm, dry MS/ Extremity: Pulses equal, no cyanosis. Neuro: Sedated, intubated Vital Signs: 15:01 BP 131 / 90; Pulse 131; Resp 18; Pulse Ox 98% on ETT ambu; ph 15:15 BP 118 / 77; Pulse 109; Resp 17; Pulse Ox 98% on 90% FiO2 ETT vent; ph 15:30 BP 108 / 70; Pulse 108; Resp 17; Pulse Ox 98% on 90% FiO2 ETT vent; ph 15:45 BP 127 / 73; Pulse 111; Resp 18; Pulse Ox 97% on 90% FiO2 ETT vent; ph 15:48 Weight 90.72 kg; ph 16:00 BP 149 / 117; Pulse 99; Resp 17; Temp 97.4(C); Pulse Ox 97% on 90% FiO2 ETT vent; ph 16:15 BP 85 / 56; Pulse 92; Resp 16; Temp 97.8(C); Pulse Ox 99% on 90% FiO2 ETT vent; ph 16:30 BP 88 / 57; Pulse 98; Resp 16; Temp 97.3(C); Pulse Ox 99% on 90% FiO2 ETT vent; ph 17:14 BP 111 / 69; Pulse 95; Resp 16; Temp 97.3(C); Pulse Ox 99% on 90% FiO2 ETT vent; ph 17:40 BP 110 / 72; Pulse 103; Resp 16; Pulse Ox 100% on 90% FiO2 ETT vent; ph 18:04 BP 97 / 61; Pulse 87; Resp 16; Pulse Ox 99% on 90% FiO2 ETT vent; ph 18:15 BP 92 / 59; Pulse 86; Resp 17; Pulse Ox 99% on 90% FiO2 ETT vent; ph 18:45 BP 96 / 64; Pulse 88; Resp 20; Temp 97.1(C); Pulse Ox 99% on 90% FiO2 ETT vent; ph 19:13 BP 100 / 68; Pulse 97; Resp 18; Temp 97.0(C); Pulse Ox 99% on 90% FiO2 ETT vent; ph 19:25 BP 108 / 73; Pulse 84; Resp 16 A; Temp 97.0(C); Pulse Ox 100% on 90% FiO2 ETT vent; as6 20:00 BP 85 / 57; Pulse 77; Resp 16 A; Temp 96.8(C); Pulse Ox 99% on 90% FiO2 ETT vent; as6 20:30 BP 88 / 61; Pulse 77; Resp 16 A; Temp 96.7(C); Pulse Ox 99% on 90% FiO2 ETT vent; as6 21:00 BP 102 / 69; Pulse 84; Resp 16 A; Temp 96.6(C); Pulse Ox 99% on 90% FiO2 ETT vent; as6 21:30 BP 93 / 63; Pulse 79; Resp 16 S; Temp 96.6(C); Pulse Ox 99% on 90% FiO2 ETT vent; as6 22:00 BP 97 / 66; Pulse 78; Resp 16 A; Temp 96.7(C); Pulse Ox 99% on 90% FiO2 ETT vent; as6 22:30 BP 92 / 63; Pulse 80; Resp 16 A; Temp 96.9(C); Pulse Ox 98% on 75% FiO2 ETT vent; as6 23:00 BP 96 / 63; Pulse 80; Resp 16 A; Temp 96.8(C); Pulse Ox 98% on 75% FiO2 ETT vent; as6 12 00:00 BP 102 / 68; Pulse 84; Resp 16 A; Temp 96.7(C); Pulse Ox 99% on 75% FiO2 ETT vent; as6 01:00 BP 100 / 68; Pulse 81; Resp 16 A; Temp 96.7(C); Pulse Ox 96% on 75% FiO2 ETT vent; as6 02:00 BP 93 / 65; Pulse 75; Resp 16 A; Temp 96.9(C); Pulse Ox 96% on 75% FiO2 ETT vent; as6 03:00 BP 95 / 68; Pulse 76; Resp 16 A; Temp 96.8(C); Pulse Ox 97% on 75% FiO2 ETT vent; as6 04:00 BP 113 / 77; Pulse 92; Resp 16 A; Temp 96.8(C); Pulse Ox 98% on 75% FiO2 ETT vent; as6 05:00 BP 105 / 68; Pulse 86; Resp 16; Pulse Ox 94% on BiPAP; jb4 06:00 BP 107 / 73; Pulse 87; Resp 16; Pulse Ox 96% on BiPAP; jb4 07:00 BP 102 / 65; Pulse 90; Resp 16; Pulse Ox 94% on BiPAP; jb4 MDM: 08/14 15:04 Patient medically screened. rn 16:27 Differential diagnosis: Bronchitis CHF exacerbation, Chronic Obstructive Pulmonary rn Disease Myocardial Infarction pneumonia, Pneumothorax pulmonary edema, reactive airway disease, Sepsis. Data reviewed: vital signs, nurses notes, lab test result(s), EKG, radiologic studies, plain films, and as a result, I will admit patient. Counseling: I had a detailed discussion with the patient and/or guardian regarding: the historical points, exam findings, and any diagnostic results supporting the discharge/admit diagnosis, lab results, radiology results, the need for further work-up and treatment in the hospital. Response to treatment: the patient's symptoms have mildly improved after treatment, and as a result, I will admit patient. Admission orders: after a detailed discussion of the patient's condition and case, the admit orders are written by me. ED course: Pt with severe sepsis without septic shock, pneumonia as source, no indication for 30ml/kg bolus at this time. Pt intubated for respiratory failure. Abx ordered for bilateral pneumonia. Will admit to Dr. Sweeney. . 18:15 ED course: Pt with decreasing BP after pain medication and sedation meds given, then rn comes back up. Given 1L bolus and will give another 500cc bolus, will not give full 30ml/kg bolus secondary to CHF and possible pulmonary edema on CXR. Sepsis reevaluation complete. . 08/14 15:06 Order name: Blood Culture Adult (2) rn 08/14 15:06 Order name: CBC with Diff; Complete Time: 15:59 rn 08/14 15:06 Order name: CMP; Complete Time: 16:02 rn 08 15:06 Order name: Lactate w/ 2H reflex if indic.; Complete Time: 15:59 rn 08 15:06 Order name: Protime (+inr); Complete Time: 15:59 rn 08 15:06 Order name: Ptt, Activated; Complete Time: 15:59 08 15:07 Order name: COVID-19/FLU A+B; Complete Time: 16:25 rn 08/14 15:07 Order name: ABG rn 08/14 15:07 Order name: BNP; Complete Time: 16:02 rn 08 17:32 Order name: Hemoglobin A1c EDCT 08/14 17:32 Order name: Lipid Profile EDCT 08/14 17:32 Order name: Thyroid Stimulating Hormone EDCT 08/14 17:32 Order name: CBC with Automated Diff EDCT 08/14 17:32 Order name: CBC with Automated Diff EDMS 08/14 15:06 Order name: Chest Single View XRAY; Complete Time: 16:25 rn 08/14 17:32 Order name: CBC with Automated Diff EDCT 08/14 17:32 Order name: CBC with Automated Diff EDMS 08/14 17:32 Order name: Comprehensive Metabolic Panel EDMS 08/14 17:32 Order name: Comprehensive Metabolic Panel EDMS 08/14 17:32 Order name: Comprehensive Metabolic Panel EDMS 08/14 17:32 Order name: Comprehensive Metabolic Panel EDMS 08/14 20:05 Order name: Lactate Sepsis 2 HR Follow-up EDMS 08/14 22:52 Order name: Glucose, Ancillary Testing EDMS 08/15 10:45 Order name: Glucose, Ancillary Testing EDMS 08/15 15:57 Order name: Glucose, Ancillary Testing EDMS 08/15 20:14 Order name: Glucose, Ancillary Testing EDMS 08/16 08:01 Order name: Glucose, Ancillary Testing EDMS 08/16 12:15 Order name: Glucose, Ancillary Testing EDMS 08/16 18:05 Order name: Glucose, Ancillary Testing EDMS 08/16 21:51 Order name: Glucose, Ancillary Testing EDMS 08/14 15:06 Order name: EKG; Complete Time: 15:07 rn 08 15:06 Order name: Accucheck; Complete Time: 15:50 rn 08 15:06 Order name: Cardiac monitoring; Complete Time: 15:50 rn 08 15:06 Order name: EKG - Nurse/Tech; Complete Time: 15:50 rn 08 15:06 Order name: IV Saline Lock - Large Bore; Complete Time: 15:50 rn 08 15:06 Order name: Labs collected and sent; Complete Time: 15:50 rn 08 15:06 Order name: O2 Per Protocol; Complete Time: 15:50 rn 08 15:06 Order name: O2 Sat Monitoring; Complete Time: 15:50 rn 08 15:06 Order name: Vital Signs; Complete Time: 15:50 rn 08 17:32 Order name: CONS Physician Consult EDCT Administered Medications: 15:00 Drug: Midazolam 4 mg Route: IVP; Site: left antecubital; ph 15:15 Follow up: Response: No adverse reaction ph 15:10 Drug: Propofol 5 mcg/kg/min {Note: initiated at 15 mcg/kg/min, weight set at 90 kg.} ph Route: IV; Rate: calculated rate; Site: left antecubital; 15:20 Follow up: Rate change 20 mcg/kg/min ph 15:45 Follow up: Rate change 25 mcg/kg/min ph 15:48 Drug: NS 0.9% 1000 ml Route: IV; Rate: 1000 ml; Site: right hand; ph 16:15 Follow up: Response: No adverse reaction; IV Status: Completed infusion; IV Intake: ph 1000ml 15:48 Drug: fentaNYL (PF) 100 mcg Route: IVP; Site: right hand; ph 19:24 Follow up: Response: No adverse reaction ph 16:00 Drug: Magnesium Sulfate 1 grams Route: IVPB; Infused Over: 1 hrs; Site: right hand; ph 17:00 Follow up: Response: No adverse reaction; IV Status: Completed infusion ph 16:00 Drug: Xopenex (levalbuterol) (3) 1.25 mg Route: Inhalation; ph 19:23 Follow up: Response: No adverse reaction ph 16:00 Drug: AtroVENT (ipratropium) Aerosol 0.5 mg Route: Inhalation; ph 19:23 Follow up: Response: No adverse reaction ph 16:03 Drug: SOLU-Medrol (methylPrednisoLONE) 125 mg Route: IVP; Site: right hand; ph 19:23 Follow up: Response: No adverse reaction ph 16:12 Drug: Valium (diazepam) 10 mg Route: IVP; Site: left antecubital; ph 16:30 Follow up: Response: No adverse reaction; RASS: Moderate sedation (-3) ph 17:40 Drug: fentaNYL (PF) 50 mcg Route: IVP; Site: right hand; ph 19:25 Follow up: Response: No adverse reaction ph 17:40 Drug: Valium (diazepam) 5 mg Route: IVP; Site: right hand; ph 18:00 Follow up: Response: No adverse reaction; RASS: Moderate sedation (-3) ph 18:00 Drug: Insulin Regular Human 10 units {Co-Signature: hb (Mirian Man RN).} Route: ph IVP; Site: right hand; 19:24 Follow up: Response: No adverse reaction ph 18:01 Drug: Rocephin (cefTRIAXone) 1 grams Route: IV; Rate: calculated rate; Site: right hand;ph 18:30 Follow up: Response: No adverse reaction; IV Status: Completed infusion ph 18:56 Drug: NS 0.9% 500 ml Route: IV; Rate: bolus; Site: right hand; ph 18:59 CANCELLED (Duplicate Order): Zithromax (azithromycin) 500 mg IVPB once over 1 hrs; mix rn in 250 mL NS 19:24 Drug: LevaQUIN (levofloxacin) 500 mg Volume: 100 ml; Route: IVPB; Infused Over: 60 as6 mins; Site: right hand; 19:24 Drug: Zofran (Ondansetron) 4 mg Route: IVP; Site: right hand; as6 19:50 Drug: fentaNYL (PF) 25 mcg Route: IVP; Site: right hand; as6 19:50 Drug: Versed (midazolam) 4 mg Route: IVP; Site: right hand; as6 Disposition: 16:28 Critical Care:. 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 Total time: 35 minutes rn Signatures: Dispatcher [employer] Paco Hassan MD MD cha Nieto, Roman, MD MD rn Hall, Patricia RN RN Mara James RN RN Ginny Green Ashby, RN RN as6 Jyoti Kolb rv1 Mirian Man RN Corrections: (The following items were deleted from the chart) 18:59 15:59 Zithromax (azithromycin) 500 mg IVPB once over 1 hrs; mix in 250 mL NS ordered. rnrn 18:59 18:57 Zithromax (azithromycin) 500 mg IVPB once over 1 hrs; mix in 250 mL NS given. ph rn 18:59 18:57 Zithromax (azithromycin) 500 mg IVPB once over 1 hrs; mix in 250 mL NS ordered. phrn 20:25 16:29 Intensive Care Unit rn rv1 20:25 16:29 rn rv1 08/15 12:18 [id number] 20:25 [facility] ER HOLD rv1 eb 08/15 12:18 12 20:25 ERHOLD- rv1 eb 08/15 12:21 12:18 Telemetry/MedSurg (Inpatient) eb eb 12: 12:18 411 eb eb 08/16 21:17 08/15 12:21 [facility] ER HOLD eb cg 08/16 21:17 08/15 12:21 ERHOLD- eb cg
--- NOTE | 2022-08-14 16:30 | ER ---
Nurse's Notes [facility] Name: Mary Fischer Age: 57 yrs Sex: Female : 1965 Arrival Date: 08/14/2022 Time: 15:01 Bed 28 Private MD: Diagnosis: Severe sepsis without septic shock;Pneumonia, unspecified organism;Acute respiratory failure with hypercapnia;Acidosis;Hyperglycemia, unspecified Presentation: 08/14 15:01 Chief complaint: EMS states: EMS toned out for difficulty breathing, pt found w/ room ph air saturation in 70's and tachypneic, would not tolerate NRB mask and kept removing it, 20 mcg ketamine given initially, pt condition continued to deteriorate so an additional 100 mcg of ketamine was given and pt intubated prior to ED arrival, 7.[address] Coronavirus screen: Vaccine status: Patient reports being unvaccinated. Ebola Screen: No symptoms or risks identified at this time. Initial Sepsis Screen: Does the patient meet any 2 criteria? No. Patient's initial sepsis screen is negative. Does the patient have a suspected source of infection? No. Patient's initial sepsis screen is negative. Risk Assessment: Do you want to hurt yourself or someone else? Patient reports no desire to harm self or others. Onset of symptoms was August 14, 2022. 15:01 Method Of Arrival: EMS: [facility] ph 15:01 Acuity: MAMADOU 1 ph 15:01 Care prior to arrival: Oral intubation, Medication(s) given: ketamine 120 mcg total IV ph initiated. 18 GA, in the left antecubital area, Oxygen administered. Triage Assessment: 15:00 General: Appears well groomed, Behavior is unresponsive. Pain: Unable to use pain ph scale. Patient is intubated. Patient is unresponsive. Neuro: Level of Consciousness is unresponsive, intubated. Cardiovascular: Capillary refill < 3 seconds in bilateral fingers Patient's skin is warm and dry. Rhythm is sinus tachycardia. Respiratory: Airway via oral intubation Respiratory effort is unlabored, Ventilator assessment: ET Tube: 7.0 23 cm at lip. HOB > 30 degrees. Breath sounds are coarse bilaterally. Breath sounds with wheezes bilaterally. GI: Abdomen is round. Derm: Skin is healthy with good turgor, Skin is pink, warm \T\ dry. Historical: - Allergies: 16:36 Clarithromycin; ph 16:36 PENICILLINS; ph - PMHx: 16:36 Chronic obstructive lung disease; ph - PSHx: 16:36 Total abdominal hysterectomy; ph - Immunization history:: Adult Immunizations unknown. - Social history:: Smoking status: unknown. - History obtained from: EMS. - Unable to obtain history due to: intubated. Screenin:36 Abuse screen: Denies threats or abuse. Denies injuries from another. Nutritional ph screening: On. Tuberculosis screening: No symptoms or risk factors identified. Fall Risk None identified. Assessment: 16:41 Reassessment: Patient appears in no apparent distress at this time. Patient and/or ph family updated on plan of care and expected duration. Pain level reassessed. Pt remains intubated and sedated. 19:25 Neuro: Level of Consciousness is pt properly sedated at this time . Respiratory: as6 Ventilator assessment: ET Tube: 7.0 Ventilator Mode: Assist Control (AC) Tidal Volume: 450 Respiratory Rate: 16 FiO2: 90 PEEP: 5 HOB > 30 degrees. 08/15 00:30 General: pt agitated. provider notified . as6 01:30 Reassessment: Patient and/or family updated on plan of care and expected duration. Pain jb4 level reassessed. Pt remains intubated with no s/s of pain or distress noted. 02:30 Reassessment: Patient appears in no apparent distress at this time. No changes from jb4 previously documented assessment. Patient and/or family updated on plan of care and expected duration. Pain level reassessed. 03:30 Reassessment: Patient appears in no apparent distress at this time. No changes from jb4 previously documented assessment. Patient and/or family updated on plan of care and expected duration. Pain level reassessed. 04:30 Reassessment: Patient appears in no apparent distress at this time. No changes from jb4 previously documented assessment. Patient and/or family updated on plan of care and expected duration. Pain level reassessed. 05:30 Reassessment: Patient appears in no apparent distress at this time. No changes from jb4 previously documented assessment. Patient and/or family updated on plan of care and expected duration. Pain level reassessed. 06:30 Reassessment: Patient appears in no apparent distress at this time. No changes from jb4 previously documented assessment. Patient and/or family updated on plan of care and expected duration. Pain level reassessed. Vital Signs: 08/14 15:01 BP 131 / 90; Pulse 131; Resp 18; Pulse Ox 98% on ETT ambu; ph 15:15 BP 118 / 77; Pulse 109; Resp 17; Pulse Ox 98% on 90% FiO2 ETT vent; ph 15:30 BP 108 / 70; Pulse 108; Resp 17; Pulse Ox 98% on 90% FiO2 ETT vent; ph 15:45 BP 127 / 73; Pulse 111; Resp 18; Pulse Ox 97% on 90% FiO2 ETT vent; ph 15:48 Weight 90.72 kg; ph 16:00 BP 149 / 117; Pulse 99; Resp 17; Temp 97.4(C); Pulse Ox 97% on 90% FiO2 ETT vent; ph 16:15 BP 85 / 56; Pulse 92; Resp 16; Temp 97.8(C); Pulse Ox 99% on 90% FiO2 ETT vent; ph 16:30 BP 88 / 57; Pulse 98; Resp 16; Temp 97.3(C); Pulse Ox 99% on 90% FiO2 ETT vent; ph 17:14 BP 111 / 69; Pulse 95; Resp 16; Temp 97.3(C); Pulse Ox 99% on 90% FiO2 ETT vent; ph 17:40 BP 110 / 72; Pulse 103; Resp 16; Pulse Ox 100% on 90% FiO2 ETT vent; ph 18:04 BP 97 / 61; Pulse 87; Resp 16; Pulse Ox 99% on 90% FiO2 ETT vent; ph 18:15 BP 92 / 59; Pulse 86; Resp 17; Pulse Ox 99% on 90% FiO2 ETT vent; ph 18:45 BP 96 / 64; Pulse 88; Resp 20; Temp 97.1(C); Pulse Ox 99% on 90% FiO2 ETT vent; ph 19:13 BP 100 / 68; Pulse 97; Resp 18; Temp 97.0(C); Pulse Ox 99% on 90% FiO2 ETT vent; ph 19:25 BP 108 / 73; Pulse 84; Resp 16 A; Temp 97.0(C); Pulse Ox 100% on 90% FiO2 ETT vent; as6 20:00 BP 85 / 57; Pulse 77; Resp 16 A; Temp 96.8(C); Pulse Ox 99% on 90% FiO2 ETT vent; as6 20:30 BP 88 / 61; Pulse 77; Resp 16 A; Temp 96.7(C); Pulse Ox 99% on 90% FiO2 ETT vent; as6 21:00 BP 102 / 69; Pulse 84; Resp 16 A; Temp 96.6(C); Pulse Ox 99% on 90% FiO2 ETT vent; as6 21:30 BP 93 / 63; Pulse 79; Resp 16 S; Temp 96.6(C); Pulse Ox 99% on 90% FiO2 ETT vent; as6 22:00 BP 97 / 66; Pulse 78; Resp 16 A; Temp 96.7(C); Pulse Ox 99% on 90% FiO2 ETT vent; as6 22:30 BP 92 / 63; Pulse 80; Resp 16 A; Temp 96.9(C); Pulse Ox 98% on 75% FiO2 ETT vent; as6 23:00 BP 96 / 63; Pulse 80; Resp 16 A; Temp 96.8(C); Pulse Ox 98% on 75% FiO2 ETT vent; as6 08/15 00:00 BP 102 / 68; Pulse 84; Resp 16 A; Temp 96.7(C); Pulse Ox 99% on 75% FiO2 ETT vent; as6 01:00 BP 100 / 68; Pulse 81; Resp 16 A; Temp 96.7(C); Pulse Ox 96% on 75% FiO2 ETT vent; as6 02:00 BP 93 / 65; Pulse 75; Resp 16 A; Temp 96.9(C); Pulse Ox 96% on 75% FiO2 ETT vent; as6 03:00 BP 95 / 68; Pulse 76; Resp 16 A; Temp 96.8(C); Pulse Ox 97% on 75% FiO2 ETT vent; as6 04:00 BP 113 / 77; Pulse 92; Resp 16 A; Temp 96.8(C); Pulse Ox 98% on 75% FiO2 ETT vent; as6 05:00 BP 105 / 68; Pulse 86; Resp 16; Pulse Ox 94% on BiPAP; jb4 06:00 BP 107 / 73; Pulse 87; Resp 16; Pulse Ox 96% on BiPAP; jb4 07:00 BP 102 / 65; Pulse 90; Resp 16; Pulse Ox 94% on BiPAP; jb4 ED Course: 12/08 15:01 Patient arrived in ED. kj1 15:04 Gómez Zaragoza MD is Attending Physician. rn 15:05 Maintain EMS IV. Dressing intact. Good blood return noted. Site clean \T\ dry. Gauge \T\ ph site: 180 LAC. IV is patent, with fluids infusing freely, with good blood return. 15:25 Inserted saline lock: 20 gauge in right hand, using aseptic technique. ph 15:35 Noelle Baltazar RN is Primary Nurse. ph 15:38 Triage completed. ph 15:39 Arm band placed on Patient placed in an exam room, on a stretcher, on oxygen, on ph media monitor, on pulse oximetry. 15:45 NGT: inserted 14 Fr. other OG verified placement of air over stomach, verified return jd3 of gastric contents, to intermittent suction. Returned gastric contents. Patient tolerated well. placed by Karma BLAIR observed by Alfredo SHEEHAN and MELISSA RN. 15:54 Roberts cath inserted, using sterile technique, 16 Fr., by mo, balloon inflated, to jd3 gravity drainage, returned rossy urine. Patient tolerated well. placed by Jacqueline BLAIR observed by Alfredo SHEEHAN. 16:03 Chest Single View XRAY In Process Unspecified. EDMS 16:28 Abebe Sweeney MD is Hospitalizing Provider. rn 16:36 Patient has correct armband on for positive identification. Placed in gown. Bed in low ph position. Call light in reach. Side rails up X2. Client placed on continuous cardiac and pulse oximetry monitoring. NIBP monitoring applied. Lights dimmed. Warm blanket given. 19:12 Attending Physician role handed off by Gómez Zaragoza MD sharon 19:12 Paco Blanca MD is Attending Physician. sharon 19:25 No provider procedures requiring assistance completed. Patient admitted, IV remains in ph place. 08/16 06:43 Primary Nurse role handed off by Noelle Baltazar RN eb 07:41 Todd Ventura, SISSY is Primary Nurse. bp 19:54 Primary Nurse role handed off by Todd Ventura, SISSY mw2 Administered Medications: 08/14 15:00 Drug: Midazolam 4 mg Route: IVP; Site: left antecubital; ph 15:15 Follow up: Response: No adverse reaction ph 15:10 Drug: Propofol 5 mcg/kg/min {Note: initiated at 15 mcg/kg/min, weight set at 90 kg.} ph Route: IV; Rate: calculated rate; Site: left antecubital; 15:20 Follow up: Rate change 20 mcg/kg/min ph 15:45 Follow up: Rate change 25 mcg/kg/min ph 15:48 Drug: NS 0.9% 1000 ml Route: IV; Rate: 1000 ml; Site: right hand; ph 16:15 Follow up: Response: No adverse reaction; IV Status: Completed infusion; IV Intake: ph 1000ml 15:48 Drug: fentaNYL (PF) 100 mcg Route: IVP; Site: right hand; ph 19:24 Follow up: Response: No adverse reaction ph 16:00 Drug: Magnesium Sulfate 1 grams Route: IVPB; Infused Over: 1 hrs; Site: right hand; ph 17:00 Follow up: Response: No adverse reaction; IV Status: Completed infusion ph 16:00 Drug: Xopenex (levalbuterol) (3) 1.25 mg Route: Inhalation; ph 19:23 Follow up: Response: No adverse reaction ph 16:00 Drug: AtroVENT (ipratropium) Aerosol 0.5 mg Route: Inhalation; ph 19:23 Follow up: Response: No adverse reaction ph 16:03 Drug: SOLU-Medrol (methylPrednisoLONE) 125 mg Route: IVP; Site: right hand; ph 19:23 Follow up: Response: No adverse reaction ph 16:12 Drug: Valium (diazepam) 10 mg Route: IVP; Site: left antecubital; ph 16:30 Follow up: Response: No adverse reaction; RASS: Moderate sedation (-3) ph 17:40 Drug: fentaNYL (PF) 50 mcg Route: IVP; Site: right hand; ph 19:25 Follow up: Response: No adverse reaction ph 17:40 Drug: Valium (diazepam) 5 mg Route: IVP; Site: right hand; ph 18:00 Follow up: Response: No adverse reaction; RASS: Moderate sedation (-3) ph 18:00 Drug: Insulin Regular Human 10 units {Co-Signature: hb (Mirian Man RN).} Route: ph IVP; Site: right hand; 19:24 Follow up: Response: No adverse reaction ph 18:01 Drug: Rocephin (cefTRIAXone) 1 grams Route: IV; Rate: calculated rate; Site: right hand;ph 18:30 Follow up: Response: No adverse reaction; IV Status: Completed infusion ph 18:56 Drug: NS 0.9% 500 ml Route: IV; Rate: bolus; Site: right hand; ph 18:59 CANCELLED (Duplicate Order): Zithromax (azithromycin) 500 mg IVPB once over 1 hrs; mix rn in 250 mL NS 19:24 Drug: LevaQUIN (levofloxacin) 500 mg Volume: 100 ml; Route: IVPB; Infused Over: 60 as6 mins; Site: right hand; 19:24 Drug: Zofran (Ondansetron) 4 mg Route: IVP; Site: right hand; as6 19:50 Drug: fentaNYL (PF) 25 mcg Route: IVP; Site: right hand; as6 19:50 Drug: Versed (midazolam) 4 mg Route: IVP; Site: right hand; as6 Medication: 16:36 VIS not applicable for this client. ph Intake: 16:15 IV: 1000ml; Total: 1000ml. ph Outcome: 16:29 Decision to Hospitalize by Provider. rn 08/16 22:00 Admitted to ICU accompanied by nurse, via stretcher, room 3, with oxygen, on monitor, pf1 with chart, Other with RT Report called to SISSY Fields 22:44 Condition: stable pf1 22:44 Instructed on the need for admit, Demonstrated understanding of instructions. 22:45 Patient left the ED. pf1 Signatures: Dispatcher [employer] EDMS Paco Blanca MD MD cha Nieto, Roman, MD MD rn Hall, Patricia, RN RN ph Bryson, James, RN RN jb4 Davies, Jonathon, RN RN jTodd Polk RN RN bp Westbrook, MyKena mw2 Ginny Green Kandis kj1 Rene Darling RN RN as6 Stephenie beaulieu RN RN pf1 Mirian Man RN Corrections: (The following items were deleted from the chart) 08/14 15:57 15:45 NGT: inserted 14 Fr. other OG verified placement of air over stomach, verified jd3 return of gastric contents, to intermittent suction. Returned gastric contents. Patient tolerated well. jd3 17:12 15:10 Propofol 5 mcg/kg/min IV at calculated rate in left antecubital ph ph 18:57 18:56 Zithromax (azithromycin) 500 mg IVPB in right hand over 1 hrs ph ph
[2022-08-14] MEDS ORDERED: HYDRALAZINE HCL 20 MG/ML VIAL IV PRN (17:24)
[2022-08-14] MEDS ORDERED: GLUCAGON 1 MG/VIAL IM PRN (17:27)
--- NOTE | 2022-08-14 17:36 | P.HP ---
Certification for Inpatient Patient admitted to: Inpatient With expected LOS: >2 Midnights Patient will require the following post-hospital care: Home Health Services Practitioner: I am a practitioner with admitting privileges, knowledge of patient current condition, hospital course, and medical plan of care. Services: Services provided to patient in accordance with Admission requirements found in Title 42 Section 412.3 of the Code of Federal Regulations Patient History Date of Service: 08/14/22 Primary Care Provider: none Reason for admission: Respiratory failure secondary to copd History of Present Illness: Patient is an unfortunate woman. She has a history of copd. She was in the ER 2 days ago. Was treated and sent home on a medrol pack. At that time she reported a 2 ppd smoking habit. The patient was brought in by EMS. She was agitated. Would not keep on a non rebreather and was intubated in the field. L imited history in the Chart. She has an elevated sugar on examination. There is no previously reported history of diabetes Allergies clarithromycin [From Biaxin] Allergy (Verified 03/18/22 17:56) Unknown Penicillins Allergy (Verified 03/18/22 17:56) Unknown Home Medications: Glimepiride 1 mg PO DAILY #30 tablet 03/19/22 - Past Medical/Surgical History Diabetic: No -: COPD - Family History Father -: Cancer Mother -: Cancer (lung) - Social History Alcohol use: No CD- Drugs: No Review of Systems is unable to be obtained Physical Examination - Physical Exam General: Unresponsive HEENT: Atraumatic, PERRLA, Mucous membr. moist/pink, EOMI, Sclerae nonicteric Neck: Supple, 2+ carotid pulse no bruit, No LAD, Without JVD or thyroid abnormality Respiratory: Diminished, Other (vent sounds ) Cardiovascular: Regular rate/rhythm, Normal S1 S2 Gastrointestinal: Normal bowel sounds, No tenderness Musculoskeletal: No tenderness Integumentary: No rashes Neurological: Normal gait, Normal speech, Normal strength at 5/5 x4 extr, Normal tone, Normal affect Lymphatics: No axilla or inguinal lymphadenopathy - Studies Laboratory Data (last 24 hrs) 08/14/22 15:24: PT 10.9, INR 0.99, APTT 25.1 08/14/22 15:24: Sodium 135 L, Potassium 4.0, BUN 22 H, Creatinine 1.14 H, Glucose 564 H*, Total Bilirubin 0.5, AST 88 H, ALT 72 H, Alkaline Phosphatase 97 08/14/22 15:24: WBC 13.40 H, Hgb 14.5, Hct 44.3, Plt Count 322 Assessment and Plan - Problems (Diagnosis) (1) Respiratory failure, unspecified with hypercapnia Current Visit: Yes Status: Acute Plan: Will admit to the icu. Consult to Dr. Amaya. will see if we can wean her off the vent in the morning Qualifiers: Chronicity: acute Qualified Code(s): J96.02 - Acute respiratory failure with hypercapnia (2) Type 2 diabetes mellitus without complications Current Visit: Yes Status: Acute Plan: will start her on a sliding scale and iv fluids. 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 Most likely the cause of her copd and respiratory failure Discharge Plan: Home Plan to discharge in: Greater than 2 days - Advance Directives Does patient have a Living Will: No Does patient have a Durable POA for Healthcare: No - Code Status/Comfort Care Code Status Assessed: Yes Code Status: Full Code Critical Care: Yes Time Spent Managing Pts Care (In Minutes): 45
[2022-08-14] MEDS ORDERED: D10W 250 ML BAG IV PRN (17:44)
[2022-08-14] MEDS ORDERED: CEFTRIAXONE 1000 MG/VIAL ONE (17:46)
[2022-08-14] MEDS ORDERED: NA CHLORIDE 0.9% 100 ML IV ONE (17:47)
[2022-08-14] MEDS ORDERED: INSULIN -REGULAR HUMAN 50 UNIT/0.5 ML ML ONE ×2 (17:47→22:44)
[2022-08-14] MEDS: NA CHLORIDE 0.9% 1,000 ML IV SCH (18:00)
[2022-08-14] MEDS ORDERED: AZITHROMYCIN 500 MG INJ IVPB ONE (18:21)
[2022-08-14] MEDS ORDERED: NA CHLORIDE 0.9% 250 ML ONE (18:21)
[2022-08-14] MEDS ORDERED: NA CHLORIDE 0.9% 500 ML ONE (18:21)
[2022-08-14] MEDS ORDERED: MIDAZOLAM HCL 2 MG/2 ML INJ ONE (19:18)
[2022-08-14] MEDS ORDERED: Levofloxacin500mg IV 500 MG/100 ML BAG IV ONE (19:19)
[2022-08-14] MEDS ORDERED: ONDANSETRON 4 MG/2 ML VIAL ONE (19:19)
[2022-08-14] MEDS: ENOXAPARIN 40 MG/0.4 ML SQ SCH (20:00)
[2022-08-14] MEDS ORDERED: propofoL 1,000 MG/100 ML VIAL IV ONE (20:30)
[2022-08-14] MEDS: INSULIN -REGULAR HUMAN 50 UNIT/0.5 ML ML SQ SCH (21:00)
[2022-08-14] MEDS: FAMOTIDINE 20 MG/2 ML VIAL IV SCH (21:00)
[2022-08-14] MEDS ORDERED: NA CHLORIDE 0.9% 1,000 ML ONE (22:44)
[2022-08-14] MEDS ORDERED: ENOXAPARIN 40 MG/0.4 ML SQ ONE (22:45)
[2022-08-14] MEDS ORDERED: FAMOTIDINE 20 MG/2 ML VIAL IV ONE (22:45)
[2022-08-15] MEDS ORDERED: HYDROMORPHONE HCL 0.5 MG/0.5 ML INJ ONE (01:33)
[2022-08-15] MEDS: HYDROMORPHONE HCL 0.5 MG/0.5 ML INJ IV PRN (01:33)
[2022-08-15] MEDS ORDERED: MIDAZOLAM HCL 2 MG/2 ML INJ ONE ×3 (01:43→10:36)
[2022-08-15] MEDS: MIDAZOLAM HCL 2 MG/2 ML INJ IV PRN ×3 (01:45→10:44)
[2022-08-15] MEDS ORDERED: propofoL 1,000 MG/100 ML VIAL IV ONE ×2 (03:57→08:51)
[2022-08-15 07:15] LABS: Absolute Lymphocytes (CBC) 1.1 K/uL (0.7-4.9); Hematocrit 39.5 % (36.0-45.0); MCV 89.5 fL (80-100); MPV 8.9 fL (7.6-11.3); RBC Red Blood Cell Count 4.42 M/uL (3.86-4.86)
[2022-08-15] MEDS: NA CHLORIDE 0.9% 1,000 ML IV SCH ×2 (07:20→20:40)
[2022-08-15] MEDS: INSULIN -REGULAR HUMAN 50 UNIT/0.5 ML ML SQ SCH ×4 (07:30→20:49)
[2022-08-15 07:41] LABS: Albumin 2.7 g/dL (3.4-5.0); Bilirubin Total 0.2 mg/dL (0.2-1.0); Potassium 4.6 mmol/L (3.5-5.1); Thyroid Stimulating Hormone 0.333 uIU/mL (0.358-3.740)
--- NOTE | 2022-08-15 07:43 | P.PN ---
Subjective Date of Service: 08/15/22 Primary Care Provider: none Chief Complaint: Respiratory failure secondary to copd Subjective: No new changes (in bed mild agitation) Review of Systems is unable to be obtained Physical Examination - Physical Exam General: Unresponsive HEENT: Atraumatic, PERRLA, EOMI Neck: Supple, JVD not distended Respiratory: Clear to auscultation bilaterally, Normal air movement Cardiovascular: Regular rate/rhythm, Normal S1 S2 Gastrointestinal: Normal bowel sounds, No tenderness Musculoskeletal: No tenderness Integumentary: No rashes Neurological: Normal speech, Normal tone, Normal affect Lymphatics: No axilla or inguinal lymphadenopathy - Studies Laboratory Data (last 24 hrs) 08/14/22 15:24: PT 10.9, INR 0.99, APTT 25.1 08/14/22 15:24: Sodium 135 L, Potassium 4.0, BUN 22 H, Creatinine 1.14 H, Glucose 564 H*, Total Bilirubin 0.5, AST 88 H, ALT 72 H, Alkaline Phosphatase 97 08/14/22 15:24: WBC 13.40 H, Hgb 14.5, Hct 44.3, Plt Count 322 Assessment And Plan - Current Problems (Diagnosis) (1) Respiratory failure, unspecified with hypercapnia Current Visit: Yes Status: Acute Plan: Will admit to the icu. Consult to Dr. Amaya. will see if we can wean her off the vent in the morning 08/15 Possible cpap trial today. Will discuss with Dr. Amaya Qualifiers: Chronicity: acute Qualified Code(s): J96.02 - Acute respiratory failure with hypercapnia (2) Type 2 diabetes mellitus without complications Current Visit: Yes Status: Acute Plan: will start her on a sliding scale and iv fluids. Will check an a1c 08/15 a1c is 11.4 Will start her on medications when extubated. her sugars seem to be coming down with fluids and sliding scale insulin Qualifiers: Diabetes mellitus mcfp insulin use: without terminal manager use Qualified Code(s): E11.9 - Type 2 diabetes mellitus without complications (3) COPD (chronic obstructive pulmonary disease) Current Visit: No Status: Chronic Plan: Once off the vent will need to see if we can get her some inhalers and discuss smoking cessation Qualifiers: COPD type: chronic bronchitis (4) Tobacco use Current Visit: No Status: Chronic Plan: will need to discuss smoking cessation. Most likely the cause of her copd and respiratory failure Discharge Plan: Home Plan to discharge in: Greater than 2 days - Code Status/Comfort Care Code Status Assessed: No Critical Care: Yes Time Spent Managing PTS Care (In Minutes): 20
[2022-08-15] MEDS: FAMOTIDINE 20 MG/2 ML VIAL IV SCH (09:00)
[2022-08-15] MEDS ORDERED: INSULIN -REGULAR HUMAN 50 UNIT/0.5 ML ML ONE ×2 (10:51→20:12)
[2022-08-15] MEDS ORDERED: FAMOTIDINE 20 MG/2 ML VIAL IV ONE (10:51)
[2022-08-15] MEDS ORDERED: ALBUTEROL 2.5 MG/3 ML NEB SOL ONE ×2 (12:35→18:48)
[2022-08-15] MEDS ORDERED: IPRATROPIUM BROM 0.5MG/2.5ML ONE ×2 (12:35→18:48)
--- NOTE | 2022-08-15 12:44 | P.CNS ---
Date of Consult: 08/15/22 Reason for Consult: Respiratory failure on a ventilator Primary Care Provider: none Chief Complaint: Respiratory failure secondary to copd History of Present Illness: Patient is 57 years of age no history available history of COPD was admitted to the hospital is currently on a ventilator and on a propofol drip patient was in ER 2 days ago was discharged came back again is currently stable Allergies clarithromycin [From Biaxin] Allergy (Verified 03/18/22 17:56) Unknown Penicillins Allergy (Verified 03/18/22 17:56) Unknown Home Medications: Glimepiride 1 mg PO DAILY #30 tablet 03/19/22 - Past Medical/Surgical History Diabetic: No -: COPD - Family History Father Medical History: Cancer Mother Medical History: Cancer (lung) - Social History Smoking Status: Current every day smoker Alcohol use: No CD- Drugs: No Review of Systems is unable to be obtained Physical Examination Temp Pulse Resp BP Pulse Ox 97.5 F 82 20 98/70 95 08/15/22 11:00 08/15/22 11:00 08/15/22 11:00 08/15/22 11:00 08/15/22 10:00 General: Unresponsive Respiratory: Clear to auscultation bilaterally, Diminished Cardiovascular: No edema, Regular rate/rhythm Laboratory Data (last 24 hrs) 08/14/22 15:24: PT 10.9, INR 0.99, APTT 25.1 08/14/22 15:24: Sodium 135 L, Potassium 4.0, BUN 22 H, Creatinine 1.14 H, Glucose 564 H*, Total Bilirubin 0.5, AST 88 H, ALT 72 H, Alkaline Phosphatase 97 08/14/22 15:24: WBC 13.40 H, Hgb 14.5, Hct 44.3, Plt Count 322 - Problems (1) Respiratory failure, unspecified with hypercapnia Current Visit: Yes Status: Acute Plan: Patient is 57 years of age admitted with hypoxic hypercapnic respiratory failure she is currently stable patient's chest x-ray looks worse she has more more prominent interstitial changes white count elevated influenza A and a COVID- negative plan to start him on levofloxacin antibiotics bronchodilators wean off propofol start weaning process Qualifiers: Chronicity: acute Qualified Code(s): J96.02 - Acute respiratory failure with hypercapnia
[2022-08-15] MEDS ORDERED: LORazepam 2 MG/ML VIAL IV PRN (12:49)
[2022-08-15] MEDS: Levofloxacin 750mg IV 750 MG/150 ML BAG IV SCH (13:00)
[2022-08-15] MEDS: METHYLPREDNISOLONE 125 MG INJ IV SCH (13:00)
[2022-08-15] MEDS: ALBUTEROL 2.5 MG/3 ML NEB SOL NEB SCH ×2 (14:00→20:00)
[2022-08-15] MEDS: IPRATROPIUM BROM 0.5MG/2.5ML NEB SCH ×2 (14:00→20:00)
[2022-08-15] MEDS ORDERED: METHYLPREDNISOLONE 125 MG INJ ONE (15:29)
[2022-08-15] MEDS ORDERED: Levofloxacin 750mg IV 750 MG/150 ML BAG IV ONE (15:30)
[2022-08-15] MEDS ORDERED: NICOTINE 21 MG/PAT TD ONE (15:48)
--- NOTE | 2022-08-15 17:39 | EKG ---
Test Date: 2022-08-14 Test Time: 15:21:02 Artificial Flower Maker: HB MEASUREMENT RESULTS: Intervals: Rate: 110 IA: 126 QRSD: 108 QT: 352 QTc: 476 [place]: P: 50 IA: 126 QRS: 64 T: 10 INTERPRETIVE STATEMENTS: Sinus tachycardia Possible Left atrial enlargement Incomplete left bundle branch block Nonspecific ST and T wave abnormality Abnormal ECG No previous ECG available for comparison Electronically Signed On 08-15-22 17:37:39 DEVELOPER ADVISOR by Michael Lopez
[2022-08-15] MEDS ORDERED: LORazepam 2 MG/ML VIAL ONE (19:00)
[2022-08-15] MEDS ORDERED: D5 0.45 NS 1,000 ML IV ONE (20:25)
[2022-08-16] MEDS ORDERED: NA CHLORIDE 0.9% 1,000 ML ONE ×2 (00:13→13:10)
[2022-08-16] MEDS ORDERED: METHYLPREDNISOLONE 125 MG INJ ONE (00:13)
[2022-08-16] MEDS ORDERED: FAMOTIDINE 20 MG/2 ML VIAL IV ONE ×3 (00:14→22:05)
[2022-08-16] MEDS ORDERED: ENOXAPARIN 40 MG/0.4 ML SQ ONE ×2 (00:14→17:59)
[2022-08-16] MEDS ORDERED: ALBUTEROL 2.5 MG/3 ML NEB SOL ONE ×4 (00:17→19:50)
[2022-08-16] MEDS ORDERED: IPRATROPIUM BROM 0.5MG/2.5ML ONE ×4 (00:17→19:50)
[2022-08-16] MEDS: FAMOTIDINE 20 MG/2 ML VIAL IV SCH ×3 (00:19→22:05)
[2022-08-16] MEDS: METHYLPREDNISOLONE 125 MG INJ IV SCH ×3 (00:19→22:05)
[2022-08-16] MEDS: ALBUTEROL 2.5 MG/3 ML NEB SOL NEB SCH ×5 (00:20→20:00)
[2022-08-16] MEDS: ENOXAPARIN 40 MG/0.4 ML SQ SCH ×2 (00:20→17:00)
[2022-08-16] MEDS: IPRATROPIUM BROM 0.5MG/2.5ML NEB SCH ×4 (00:20→19:45)
[2022-08-16] MEDS: NA CHLORIDE 0.9% 1,000 ML IV SCH ×2 (00:20→10:00)
[2022-08-16 07:05] LABS: Absolute Lymphocytes (CBC) 0.9 K/uL (0.7-4.9); Hematocrit 43.4 % (36.0-45.0); Lymphocytes % 7.3 % (15.3-44.8); MCV 89.3 fL (80-100); MPV 9.4 fL (7.6-11.3); RBC Red Blood Cell Count 4.86 M/uL (3.86-4.86)
[2022-08-16 07:22] LABS: Albumin 2.7 g/dL (3.4-5.0); Bilirubin Total 0.3 mg/dL (0.2-1.0); Protein, Total 6.1 g/dL (6.4-8.2)
[2022-08-16 07:23] LABS: Potassium 4.3 mmol/L (3.5-5.1)
[2022-08-16] MEDS: INSULIN -REGULAR HUMAN 50 UNIT/0.5 ML ML SQ SCH ×4 (07:30→21:48)
[2022-08-16] MEDS ORDERED: INSULIN -REGULAR HUMAN 50 UNIT/0.5 ML ML ONE ×4 (08:37→21:48)
[2022-08-16] MEDS ORDERED: METHYLPREDNISOLONE 40 MG INJ ONE ×2 (08:37→22:05)
--- NOTE | 2022-08-16 11:44 | P.PN ---
Subjective Date of Service: 08/16/22 Primary Care Provider: none Chief Complaint: Respiratory failure secondary to copd Subjective: New changes (extubated. Currently in respiratory distress due to taking off her oxygen) Review of Systems 10-point ROS is otherwise unremarkable Respiratory: Shortness of Breath Physical Examination - Vital Signs Temperature: 98.0 F Blood Pressure: 130/78 Pulse: 112 Respirations: 47 Pulse Ox (%): 93 - Physical Exam General: Alert, Moderate distress HEENT: Atraumatic, PERRLA, EOMI Neck: Supple, JVD not distended Respiratory: Expiratory wheezes Cardiovascular: Regular rate/rhythm, Normal S1 S2 Gastrointestinal: Normal bowel sounds, No tenderness Musculoskeletal: No tenderness Integumentary: No rashes Neurological: Normal speech, Normal tone, Normal affect Lymphatics: No axilla or inguinal lymphadenopathy Assessment And Plan - Current Problems (Diagnosis) (1) Respiratory failure, unspecified with hypercapnia Current Visit: Yes Status: Acute Plan: Will admit to the icu. Consult to Dr. Amaya. will see if we can wean her off the vent in the morning 08/16 will put her on a cpap to get her breathing under control. Will keep her on the long oxygen hose. She took it off to get to the toliet and got into distress. Qualifiers: Chronicity: acute Qualified Code(s): J96.02 - Acute respiratory failure with hypercapnia (2) Type 2 diabetes mellitus without complications Current Visit: Yes Status: Acute Plan: will start her on a sliding scale and iv fluids. Will check an a1c 08/16 a1c is 11.4 Will start her on metformin for now . 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 Most likely the cause of her copd and respiratory failure Discharge Plan: Home Plan to discharge in: Greater than 2 days - Code Status/Comfort Care Code Status Assessed: No Critical Care: Yes Time Spent Managing PTS Care (In Minutes): 20
[2022-08-16] MEDS: Levofloxacin 750mg IV 750 MG/150 ML BAG IV SCH (13:00)
[2022-08-16] MEDS ORDERED: Levofloxacin 750mg IV 750 MG/150 ML BAG IV ONE (13:11)
[2022-08-16] MEDS: METFORMIN HCL 500 MG TAB PO SCH (17:00)
[2022-08-16] MEDS ORDERED: METFORMIN HCL 500 MG TAB ONE (17:58)
[2022-08-16] MEDS: HYDROMORPHONE HCL 0.5 MG/0.5 ML INJ IV PRN (19:57)
[2022-08-16] MEDS ORDERED: HYDROMORPHONE HCL 0.5 MG/0.5 ML INJ ONE (23:23)
[2022-08-17] MEDS: IPRATROPIUM BROM 0.5MG/2.5ML NEB SCH ×2 (01:35→09:09)
[2022-08-17] MEDS: ALBUTEROL 2.5 MG/3 ML NEB SOL NEB SCH ×4 (01:35→19:40)
[2022-08-17] MEDS: NA CHLORIDE 0.9% 1,000 ML IV SCH (03:16)
[2022-08-17 06:25] LABS: Absolute Lymphocytes (CBC) 1.5 K/uL (0.7-4.9); Hematocrit 42.1 % (36.0-45.0); Lymphocytes % 16.2 % (15.3-44.8); MPV 9.3 fL (7.6-11.3); RBC Red Blood Cell Count 4.73 M/uL (3.86-4.86)
[2022-08-17 06:44] LABS: Albumin 2.5 g/dL (3.4-5.0); Bilirubin Total 0.3 mg/dL (0.2-1.0); Phosphorus 3.9 mg/dL (2.5-4.9); Potassium 4.3 mmol/L (3.5-5.1); Protein, Total 5.5 g/dL (6.4-8.2)
[2022-08-17] MEDS: METHYLPREDNISOLONE 125 MG INJ IV SCH (08:18)
[2022-08-17] MEDS: FAMOTIDINE 20 MG/2 ML VIAL IV SCH ×2 (08:18→20:18)
[2022-08-17] MEDS: INSULIN -REGULAR HUMAN 50 UNIT/0.5 ML ML SQ SCH ×4 (08:20→20:18)
[2022-08-17] MEDS: METFORMIN HCL 500 MG TAB PO SCH ×2 (08:20→16:52)
[2022-08-17] MEDS ORDERED: IPRATROPIUM BROM 0.5MG/2.5ML NEB PRN (11:35)
--- NOTE | 2022-08-17 11:37 | P.PN ---
Subjective Date of Service: 08/17/22 Primary Care Provider: none Chief Complaint: Presumed COPD exacerbation Patient is doing well was extubated 2 days ago prior history of COPD patient is an active smoker Review of Systems General: Weakness Respiratory: Shortness of Breath Physical Examination - Vital Signs Temperature: 96.4 F Blood Pressure: 142/81 Pulse: 103 Respirations: 23 Pulse Ox (%): 100 - Physical Exam General: Alert, In no apparent distress, Oriented x3 Respiratory: Clear to auscultation bilaterally, Diminished Cardiovascular: No edema, Regular rate/rhythm Assessment And Plan - Current Problems (Diagnosis) (1) COPD (chronic obstructive pulmonary disease) Current Visit: No Status: Chronic Plan: Patient is 57 years of age admitted with COPD exacerbation prior history of COPD plan to change her over to p.o. prednisone antibiotics and an inhaler repeat chest x-ray has been ordered labs reviewed cultures negative Qualifiers: COPD type: chronic bronchitis
--- NOTE | 2022-08-17 12:40 | P.PN ---
Subjective Date of Service: 08/17/22 Primary Care Provider: none Chief Complaint: Presumed COPD exacerbation Subjective: No new changes Review of Systems 10-point ROS is otherwise unremarkable Respiratory: Shortness of Breath Physical Examination - Vital Signs Temperature: 96.4 F Blood Pressure: 142/81 Pulse: 103 Respirations: 23 Pulse Ox (%): 100 - Physical Exam General: Alert, In no apparent distress HEENT: Atraumatic, PERRLA, EOMI Neck: Supple, JVD not distended Respiratory: Clear to auscultation bilaterally, Normal air movement Cardiovascular: Regular rate/rhythm, Normal S1 S2 Gastrointestinal: Normal bowel sounds, No tenderness Musculoskeletal: No tenderness Integumentary: No rashes Neurological: Normal speech, Normal tone, Normal affect Lymphatics: No axilla or inguinal lymphadenopathy Assessment And Plan - Current Problems (Diagnosis) (1) Respiratory failure, unspecified with hypercapnia Current Visit: Yes Status: Acute Plan: Will admit to the icu. Consult to Dr. Amaya. will see if we can wean her off the vent in the morning 08/17 Patient is on the cpap. Mostly able to stay on nc. If she improves we can transfer to the floor. Qualifiers: Chronicity: acute Qualified Code(s): J96.02 - Acute respiratory failure with hypercapnia (2) Type 2 diabetes mellitus without complications Current Visit: Yes Status: Acute Plan: will start her on a sliding scale and iv fluids. Will check an a1c 08/16 a1c is 11.4 Will start her on metformin for now . her sugars seem to be coming down with fluids and sliding scale insulin Qualifiers: Diabetes mellitus skilled nursing insulin use: without skilled nursing use Qualified Code(s): E11.9 - Type 2 diabetes mellitus without complications (3) COPD (chronic obstructive pulmonary disease) Current Visit: No Status: Chronic Plan: Once off the vent will need to see if we can get her some inhalers and discuss smoking cessation Qualifiers: COPD type: chronic bronchitis (4) Tobacco use Current Visit: No Status: Chronic Plan: will need to discuss smoking cessation. Most likely the cause of her copd and respiratory failure Discharge Plan: Home Plan to discharge in: 24 Hours - Code Status/Comfort Care Code Status Assessed: No Code Status: Full Code Physician Review: Patient Assessed, Agree with Above Assessment and Plan Critical Care: Yes Time Spent Managing PTS Care (In Minutes): 20
[2022-08-17] MEDS: ENOXAPARIN 40 MG/0.4 ML SQ SCH (16:52)
[2022-08-17] MEDS: DULERA 200/5 (MOMETASONE/FORMOTEROL) INHALER IH SCH (20:18)
[2022-08-17] MEDS: predniSONE 20 MG TAB PO SCH (20:18)
[2022-08-18] MEDS: ALBUTEROL 2.5 MG/3 ML NEB SOL NEB SCH ×4 (01:45→20:25)
[2022-08-18 05:15] LABS: Magnesium 1.9 mg/dL (1.6-2.4); Potassium 4.1 mmol/L (3.5-5.1)
[2022-08-18 05:34] VITALS: BMI 33.5
--- NOTE | 2022-08-18 07:50 | RAD REPORT ---
EXAM DESCRIPTION: Chandan Single View08/18/2022 6:07 am CLINICAL HISTORY: Shortness of breath COMPARISON: August 14, 2022 FINDINGS: Small bilateral pleural effusions are suspected with bibasilar atelectasis Mild bilateral pulmonary opacities mildly improved. Heart remains enlarged
[2022-08-18] MEDS: INSULIN -REGULAR HUMAN 50 UNIT/0.5 ML ML SQ SCH ×4 (08:26→21:46)
[2022-08-18] MEDS: DULERA 200/5 (MOMETASONE/FORMOTEROL) INHALER IH SCH ×2 (08:27→20:37)
[2022-08-18] MEDS: FAMOTIDINE 20 MG/2 ML VIAL IV SCH ×2 (08:27→20:37)
[2022-08-18] MEDS: levoFLOXacin 500 MG TAB PO SCH (08:27)
[2022-08-18] MEDS: predniSONE 20 MG TAB PO SCH ×2 (08:27→20:37)
[2022-08-18] MEDS: METFORMIN HCL 500 MG TAB PO SCH ×2 (08:28→17:10)
--- NOTE | 2022-08-18 08:39 | P.PN ---
Subjective Date of Service: 08/18/22 Primary Care Provider: none Chief Complaint: COPD exacerbation Subjective: No new changes Review of Systems 10-point ROS is otherwise unremarkable Respiratory: Shortness of Breath Physical Examination - Vital Signs Temperature: 97 F Blood Pressure: 112/73 Pulse: 71 Respirations: 23 Pulse Ox (%): 98 - Physical Exam General: Alert, In no apparent distress HEENT: Atraumatic, PERRLA, EOMI Neck: Supple, JVD not distended Respiratory: Diminished, Crackles/rales Cardiovascular: Regular rate/rhythm, Normal S1 S2 Gastrointestinal: Normal bowel sounds, No tenderness Musculoskeletal: No tenderness Integumentary: No rashes Neurological: Normal speech, Normal tone, Normal affect Lymphatics: No axilla or inguinal lymphadenopathy Assessment And Plan - Current Problems (Diagnosis) (1) Respiratory failure, unspecified with hypercapnia Current Visit: Yes Status: Acute Plan: Will admit to the icu. Consult to Dr. Amaya. will see if we can wean her off the vent in the morning 08/17 Patient is on the cpap. Mostly able to stay on nc. If she improves we can transfer to the floor. 08/18 will start weaning her off cpap Qualifiers: Chronicity: acute Qualified Code(s): J96.02 - Acute respiratory failure with hypercapnia (2) Type 2 diabetes mellitus without complications Current Visit: Yes Status: Acute Plan: will start her on a sliding scale and iv fluids. Will check an a1c 08/18 a1c is 11.4 Will start her on metformin for now . will start her on a low dose of lantus. Her sugars are not well controlled. However the patient is on steroids Qualifiers: Diabetes mellitus custodial insulin use: without director long term care use Qualified Code(s): E11.9 - Type 2 diabetes mellitus without complications (3) COPD (chronic obstructive pulmonary disease) Current Visit: No Status: Chronic Plan: Once off the vent will need to see if we can get her some inhalers and discuss smoking cessation Qualifiers: COPD type: chronic bronchitis (4) Tobacco use Current Visit: No Status: Chronic Plan: will need to discuss smoking cessation. Most likely the cause of her copd and respiratory failure Discharge Plan: Home Plan to discharge in: 24 Hours - Code Status/Comfort Care Code Status Assessed: No Physician Review: Patient Assessed, Agree with Above Assessment and Plan Critical Care: No Time Spent Managing PTS Care (In Minutes): 20
[2022-08-18 11:18] LABS: Arterial Blood Carboxyhemoglob 1.2 % (0-1.5); Blood Gas Oxyhemoglobin 86.1 % (94-97); Blood O2 Saturation 88.1 % (92-98.5)
[2022-08-18] MEDS: ENOXAPARIN 40 MG/0.4 ML SQ SCH (17:11)
[2022-08-19] MEDS: ALBUTEROL 2.5 MG/3 ML NEB SOL NEB SCH ×4 (01:50→20:35)
[2022-08-19] MEDS: INSULIN -REGULAR HUMAN 50 UNIT/0.5 ML ML SQ SCH ×4 (07:56→22:10)
[2022-08-19] MEDS: predniSONE 20 MG TAB PO SCH ×2 (07:57→22:10)
[2022-08-19] MEDS: DULERA 200/5 (MOMETASONE/FORMOTEROL) INHALER IH SCH ×2 (07:57→21:00)
[2022-08-19] MEDS: levoFLOXacin 500 MG TAB PO SCH (07:57)
[2022-08-19] MEDS: METFORMIN HCL 500 MG TAB PO SCH ×2 (07:57→17:19)
[2022-08-19] MEDS: FAMOTIDINE 20 MG/2 ML VIAL IV SCH ×2 (07:59→22:11)
--- NOTE | 2022-08-19 09:14 | P.PN ---
Subjective Date of Service: 08/19/22 Primary Care Provider: none Chief Complaint: COPD exacerbation Subjective: Improving Review of Systems 10-point ROS is otherwise unremarkable Physical Examination - Vital Signs Temperature: 98.2 F Blood Pressure: 124/76 Pulse: 91 Respirations: 20 Pulse Ox (%): 94 - Physical Exam General: Alert, In no apparent distress HEENT: Atraumatic, PERRLA, EOMI Neck: Supple, JVD not distended Respiratory: Clear to auscultation bilaterally, Normal air movement Cardiovascular: Regular rate/rhythm, Normal S1 S2 Gastrointestinal: Normal bowel sounds, No tenderness Musculoskeletal: No tenderness Integumentary: No rashes Neurological: Normal speech, Normal tone, Normal affect Lymphatics: No axilla or inguinal lymphadenopathy Assessment And Plan - Current Problems (Diagnosis) (1) Respiratory failure, unspecified with hypercapnia Current Visit: Yes Status: Acute Plan: Will admit to the icu. Consult to Dr. Amaya. will see if we can wean her off the vent in the morning 08/19 Patient is doing well. She can sit without oxygen. Will move her to the floors. Hopefully we can get her tested for oxygen. The patient may get insurance and we may be able to see her in follow up. Arrange for outpatient oxygen Qualifiers: Chronicity: acute Qualified Code(s): J96.02 - Acute respiratory failure with hypercapnia (2) Type 2 diabetes mellitus without complications Current Visit: Yes Status: Acute Plan: will start her on a sliding scale and iv fluids. Will check an a1c 08/18 a1c is 11.4 Will start her on metformin for now . will start her on a low dose of lantus. Her sugars are not well controlled. However the patient is on steroids Qualifiers: Diabetes mellitus [facility] insulin use: without oil heaterman use Qualified Code(s): E11.9 - Type 2 diabetes mellitus without complications (3) COPD (chronic obstructive pulmonary disease) Current Visit: No Status: Chronic Plan: Once off the vent will need to see if we can get her some inhalers and discuss smoking cessation Qualifiers: COPD type: chronic bronchitis (4) Tobacco use Current Visit: No Status: Chronic Plan: will need to discuss smoking cessation. Most likely the cause of her copd and respiratory failure Discharge Plan: Home Plan to discharge in: 24 Hours Physician Review: Patient Assessed, Agree with Above Assessment and Plan Critical Care: Yes Time Spent Managing PTS Care (In Minutes): 20
[2022-08-19] MEDS: ENOXAPARIN 40 MG/0.4 ML SQ SCH (17:19)
[2022-08-19] MEDS: NICOTINE 21 MG/PAT TD SCH (22:11)
[2022-08-19 22:12] VITALS: O2SAT 94
[2022-08-20] MEDS: ALBUTEROL 2.5 MG/3 ML NEB SOL NEB SCH ×2 (02:35→08:35)
[2022-08-20] MEDS ORDERED: levoFLOXacin 750 MG TAB PO SCH (09:00)
--- NOTE | 2022-08-20 09:15 | P.DS ---
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 She has a history of copd. She was in the ER 2 days ago. Was treated and sent home on a medrol pack. At that time she reported a 2 ppd smoking habit. The patient was brought in by EMS. She was agitated. Would not keep on a non rebreather and was intubated in the field. Limited history in the Chart. She has an elevated sugar on examination. There is no previously reported history of diabetes Hospital Course: Patient is breathing well. She states she is good on stopping smoking. Will discharge her on prednisone and albuterol. She would do well with a maintenance inhaler. However the patient has no insurance. Her sister in law is working on this. Will also add metformin for the diabetes. Insulin would be beneficial. However the patient has a hard task of smoking cessation. Will focus on that for the time being Vital Signs/Physical Exam: Temp Pulse Resp BP Pulse Ox 97.0 F 91 H 18 124/79 95 08/20/22 04:00 08/20/22 04:00 08/20/22 04:00 08/20/22 04:00 08/20/22 04:00 General: Alert, In no apparent distress HEENT: Atraumatic, PERRLA, EOMI Neck: Supple, JVD not distended Respiratory: Clear to auscultation bilaterally, Normal air movement Cardiovascular: Regular rate/rhythm, Normal S1 S2 Gastrointestinal: Normal bowel sounds, No tenderness Musculoskeletal: No tenderness Integumentary: No rashes Neurological: Normal speech, Normal tone, Normal affect Lymphatics: No axilla or inguinal lymphadenopathy Laboratory Data at Discharge: WBC 9.40 K/uL (4.3-10.9) 08/17/22 06:08 Hgb 14.5 g/dL (12.0-15.0) 08/17/22 06:08 Hct 42.1 % (36.0-45.0) 08/17/22 06:08 Plt Count 214 K/uL (152-406) 08/17/22 06:08 PT 10.9 SECONDS (9.5-12.5) 08/14/22 15:24 INR 0.99 08/14/22 15:24 APTT 25.1 SECONDS (24.3-36.9) 08/14/22 15:24 Sodium 132 mmol/L (136-145) L 08/18/22 04:29 Potassium 4.1 mmol/L (3.5-5.1) 08/18/22 04:29 BUN 29 mg/dL (7-18) H 08/18/22 04:29 Creatinine 0.75 mg/dL (0.55-1.02) 08/18/22 04:29 Glucose 273 mg/dL (74-106) H 08/18/22 04:29 Phosphorus 4.0 mg/dL (2.5-4.9) 08/18/22 04:29 Magnesium 1.9 mg/dL (1.6-2.4) 08/18/22 04:29 Total Bilirubin 0.3 mg/dL (0.2-1.0) 08/17/22 06:08 AST 12 U/L (15-37) L 08/17/22 06:08 ALT 38 U/L (13-56) 08/17/22 06:08 Alkaline Phosphatase 66 U/L (45-117) 08/17/22 06:08 Triglycerides 351 mg/dL (<150) H 08/15/22 07:04 Cholesterol 240 mg/dL (<200) H 08/15/22 07:04 HDL Cholesterol 31 mg/dL (40-60) L 08/15/22 07:04 Cholesterol/HDL Ratio 7.74 08/15/22 07:04 Home Medications: Glimepiride 1 mg PO DAILY #30 tablet 03/19/22 Albuterol Inhaler [Ventolin Inhaler*] 2 puff IH Q6H PRN 30 Days #30 gm 08/20/22 Prednisone [Sterapred Ds] 10 mg PO BID 9 Days #21 mg 08/20/22 New Medications: Prednisone [Sterapred Ds] 10 mg PO BID 9 Days #21 mg Albuterol Inhaler [Ventolin Inhaler*] 2 puff IH Q6H PRN 30 Days #30 gm PRN Reason: Shortness Of Breath Diet: ADA Activity: Ad [place] Followup: Delonte Craig MD [ACTIVE - CAN ADMIT] - Abebe Sweeney MD [ACTIVE - CAN ADMIT] - 1 Week Time spent managing pt's care (in minutes): 30
[2022-08-20] MEDS: DULERA 200/5 (MOMETASONE/FORMOTEROL) INHALER IH SCH (10:19)
[2022-08-20] MEDS: INSULIN -REGULAR HUMAN 50 UNIT/0.5 ML ML SQ SCH (10:19)
[2022-08-20] MEDS: predniSONE 20 MG TAB PO SCH (10:20)
[2022-08-20] MEDS: METFORMIN HCL 500 MG TAB PO SCH (10:20)
[2022-08-20] MEDS: FAMOTIDINE 20 MG/2 ML VIAL IV SCH (10:20)
[2022-08-20] MEDS: NICOTINE 21 MG/PAT TD SCH (10:20)
[2022-08-20 11:49] VITALS: BP 140/74; TEMP 96.9
== END 2022-08-20 12:57 | disposition home or self-care (01) | DRG 871 ==
LOC: ER 15:01 → ERHOLD 17:28 → 3RD-ICU 08-16 22:03 → 4TH 08-19 13:00
PROVIDERS: ADMIT Internal Medicine; ATTEND Internal Medicine
PROC: 5A1945Z Respiratory Ventilation, 24-96 Consecutive Hours (ICD-10-PCS; principal; 2022-08-14)
DX: A41.9 Sepsis, unspecified organism (principal); J96.02 Acute respiratory failure with hypercapnia; E87.20 Acidosis, unspecified; E11.65 Type 2 diabetes mellitus with hyperglycemia; J44.9 Chronic obstructive pulmonary disease, unspecified; R65.20 Severe sepsis without septic shock; F17.200 Nicotine dependence, unspecified, uncomplicated; Z88.1 Allergy status to other antibiotic agents; Z88.0 Allergy status to penicillin; Z79.84 Long term (current) use of oral hypoglycemic drugs; Z79.52 Long term (current) use of systemic steroids; Z79.899 Other long term (current) drug therapy; Z90.710 Acquired absence of both cervix and uterus; Z20.822 Contact with and (suspected) exposure to COVID-19
CPT/HCPCS: 0240U; 36415; 51702; 71045; 80048; 80053; 80061; 82805; 82947; 83036; 83605; 83735; 83880; 84100; 84443; 85025; 85610; 85730; 87040; 93005; 94002; 94003; 94660; 94760; 99291; J0456; J1170; J1650; J1815; J2250; J2405; J2704; J2920; J2930; J3010; J3360; J3475; J3535; J7030; J7040; J7050; J7512; J7613; J7614; J7644; J7799

== ENCOUNTER 2023-01-11 04:02 | Inpatient (IN) | payer OTHER, SELFPAY ==
--- OUTSIDE RECORDS SUMMARY | 2023-01-11 04:05 | XMS REPORT | Continuity of Care Document ---
:1965 Author Organization [facility] t Address [address] [place] [id number] Care Team Providers Name Role Phone Unavailable Unavailable Unavailable Problems This patient has no known problems. Allergies, Adverse Reactions, Alerts This patient has no known allergies or adverse reactions. Medications This patient has no known medications. Procedures This patient has no known procedures. Encounters Start End Encounter Admission Attending Care Care Encounter Source Date/Time Date/Time Type Type Clinicians Facility Department ID 2022-12-04 2022-12-04 Outpatient [facility] [id number] Garth 14:31:59 14:31:59 0330 F Andres Results This patient has no known results.
[2023-01-11 04:42] LABS: Arterial Blood Carboxyhemoglob 2.4 % (0-1.5); Blood Gas Oxyhemoglobin 89.2 % (94-97); Blood O2 Saturation 92.6 % (92-98.5)
[2023-01-11] MEDS ORDERED: METHYLPREDNISOLONE 125 MG INJ ONE (04:45)
[2023-01-11] MEDS ORDERED: NA CHLORIDE 0.9% 50 ML ONE (04:46)
[2023-01-11] MEDS ORDERED: MORPHINE 4 MG/ML SYR ONE (04:46)
[2023-01-11] MEDS ORDERED: ONDANSETRON 4 MG/2 ML VIAL ONE (04:46)
[2023-01-11] MEDS ORDERED: CEFTRIAXONE 1000 MG/VIAL ONE (04:46)
[2023-01-11] MEDS ORDERED: NA CHLORIDE 0.9% 1,000 ML ONE (04:46)
[2023-01-11] MEDS ORDERED: ALBUTEROL 2.5 MG/3 ML NEB SOL ONE (04:46)
[2023-01-11 05:21] LABS: Lymphocytes % 14.7 % (15.3-44.8); MCV 88.8 fL (80-100); MPV 9.1 fL (7.6-11.3); RBC Red Blood Cell Count 5.18 M/uL (3.86-4.86)
[2023-01-11 05:36] LABS: Albumin 3.4 g/dL (3.4-5.0); Bilirubin Direct 0.1 mg/dL (0-0.2); Bilirubin Total 0.5 mg/dL (0.2-1.0); Potassium 4.4 mEq/L (3.5-5.1); Protein, Total 6.8 g/dL (6.4-8.2)
[2023-01-11 05:46] LABS: Protime INR 0.97
--- NOTE | 2023-01-11 07:09 | EDPHYS ---
Physician Documentation [facility] Name: Mary Fischer Age: 57 yrs Sex: Female : 1965 Arrival Date: 01/11/2023 Time: 04:02 Bed 17 Private MD: ED Physician Juanjose Somers HPI: 01/11 04:27 This 57 yrs old Female presents to ER via Wheelchair with complaints of sp4 Shortness Of Breath. 06:54 57-year-old female history of diabetes of COPD presents with acute worsening of dyspnea sp4 associated with cough and right-sided abdominal pain. Patient has history of admission here on 08/14/2022 through 08/20/2020 for COPD exacerbation. Additional diagnoses include diabetes type 2, tobacco use disorder, respiratory failure with hypercapnia. Patient has a history of 2 pack/day smoking. Patient's medications at home include glimepiride. Albuterol. Prednisone. Patient follows with Dr. Christy. PMD Dr. Sweeney . Historical: - Allergies: 04:10 PENICILLINS; kd3 04:10 Clarithromycin; kd3 04:10 bixon; kd3 - PMHx: 04:10 Chronic obstructive lung disease; kd3 - PSHx: 04:10 Total abdominal hysterectomy; kd3 - Immunization history:: Adult Immunizations up to date. - Social history:: Smoking status: Patient reports the use of cigarette tobacco products, smokes one pack cigarettes per day. - Family history:: not pertinent. ROS: 06:54 Constitutional: Negative for fever, chills, and weight loss, Eyes: Negative for injury, sp4 pain, redness, and discharge, ENT: Negative for injury, pain, and discharge, Neck: Negative for injury, pain, and swelling, Cardiovascular: Negative for chest pain, palpitations, and edema, Respiratory: Negative for , and pleuritic chest pain, positive for shortness of breath, wheezing, cough, nonproductive cough Abdomen/GI: Negative for nausea, vomiting, diarrhea, and constipation, positive for right-sided abdominal pain Back: Negative for injury and pain, : Negative for injury, bleeding, discharge, and swelling, MS/Extremity: Negative for injury and deformity, Skin: Negative for injury, rash, and discoloration, Neuro: Negative for headache, weakness, numbness, tingling, and seizure, Psych: Negative for depression, anxiety, Allergy/Immunology: Negative for hives, rash, and allergies Endocrine: Negative for neck swelling, polydipsia, polyuria, polyphagia, and weight changes Hematologic/Lymphatic: Negative for swollen nodes, abnormal bleeding, and unusual bruising Exam: 06:54 Constitutional: This is a well developed, well nourished patient who is awake, alert, sp4 and in no acute distress. Head/Face: Normocephalic, atraumatic. Eyes: Pupils equal round and reactive to light, extra-ocular motions intact. Lids and lashes normal. Conjunctiva and sclera are not injected. Cornea within normal limits. Periorbital areas with no swelling, redness, or edema. ENT: Nares patent. No nasal discharge, no septal abnormalities noted. Tympanic membranes are normal and external auditory canals are clear. Oropharynx with no redness, swelling, or masses, exudates, or evidence of obstruction, uvula midline. Mucous membranes moist. Neck: Trachea midline, no thyromegaly or masses palpated, and no cervical lymphadenopathy. Supple, full range of motion without nuchal rigidity, or vertebral point tenderness. No Meningismus. Chest/axilla: Normal chest wall appearance and motion. Nontender with no deformity. No lesions are appreciated. Cardiovascular: Regular rate and rhythm with a normal S1 and S2. No gallops, murmurs, or rubs. Normal PMI, no JVD. No pulse deficits. Respiratory: Lungs have equal breath sounds bilaterally, bilateral expiratory wheezes present, tachypnea present, increased work of breathing present, negative for crackles, negative for retractions Abdomen/GI: Soft, non-tender, with normal bowel sounds. No distension or tympany. No guarding or rebound. No evidence of tenderness throughout. Back: No spinal tenderness. No costovertebral tenderness. Skin: Warm, dry with normal turgor. Normal color with no rashes, no lesions, and no evidence of cellulitis. MS/ Extremity: Pulses equal, no cyanosis. Neurovascular intact. Full, normal range of motion. Neuro: Awake and alert, GCS 15, oriented to person, place, time, and situation. Cranial nerves II-XII grossly intact. Motor strength 5/5 in all extremities. Sensory grossly intact. Psych: Awake, alert, with orientation to person, place and time. Behavior, mood, and affect are within normal limits 06:54 ECG was reviewed by the Attending Physician. Time of EKG 0 651. There is normal sinus sp4 rhythm at the rate of 86, positive for left axis deviation, positive for right bundle branch block. No ST elevation or depression Vital Signs: 04:07 BP 128 / 86; Pulse 101; Resp 24; Temp 97.6(O); Pulse Ox 88% on R/A; Weight 74.84 kg; kd3 Height 5 ft. 0 in. ; 04:18 BP 127 / 76; Pulse 105; Resp 23; Pulse Ox 92% on 3 lpm NC; kd3 05:30 BP 100 / 60; Pulse 87; Resp 20 S; Pulse Ox 96% on 4 lpm NC; aa9 06:56 BP 102 / 66; Pulse 91; Resp 24; Pulse Ox 94% on 4 lpm NC; aa9 07:15 BP 109 / 68; Pulse 88; Resp 24; Pulse Ox 97% on 4 lpm NC; db 04:07 Body Mass Index 32.22 (74.84 kg, 152.4 cm) kd3 MDM: 04:29 Patient medically screened. sp4 06:59 Differential diagnosis: Anemia Anxiety Reaction asthma, Bronchitis CHF exacerbation, sp4 Chronic Obstructive Pulmonary Disease Myocardial Infarction pneumonia, Pneumothorax Psychogenic pulmonary edema. Antibiotic administration: We will add vancomycin. Data reviewed: vital signs, nurses notes, old medical records, lab test result(s), EKG, radiologic studies, CT scan. ED course: CT chest abdomen pelvis has revealed patchy groundglass opacities throughout the lobes all lobes of the lungs bilaterally compatible with nonspecific infectious or inflammatory process. Clinical correlation and follow-up chest radiographs recommended. Small bilateral pleural effusions likely reactive in nature, small cortical defect involving left kidney compatible with multiple remote left renal infarcts. Patient has a wedge-shaped area of diminished cortical perfusion involving upper pole of the right kidney suspicious for an acute/subacute infarct. This could indicate embolic disease given bilateral findings and correlation with clinical history and symptoms is recommended.. Mild fatty infiltration of the liver. Status post hysterectomy and appendectomy. . 07:07 Consideration of Admission/Observation Patient was admitted/placed on observation. sp4 Escalation of care including admission/observation considered. Management of patient was discussed with the following: Hospitalist: Discussed with primary MD. . ED course: Patient warrants admission for multifocal pneumonia, also unusual findings of a left kidney renal infarct as well as right kidney acute to subacute infarct.. 01/11 04:28 Order name: BMP; Complete Time: 06:02 sp4 01/11 04:28 Order name: Blood Culture Adult (2) sp4 01/11 04:28 Order name: CBC with Diff; Complete Time: 06:02 sp4 01/11 04:28 Order name: CPK; Complete Time: 06:02 sp4 01/11 04:28 Order name: Hepatic Function; Complete Time: 06:02 sp4 01/11 04:28 Order name: Lipase; Complete Time: 06:02 sp4 01/11 04:28 Order name: Magnesium; Complete Time: 06:02 sp4 01/11 04:28 Order name: NT PRO-BNP; Complete Time: 06:02 sp4 01/11 04:28 Order name: PT-INR; Complete Time: 06:02 sp4 01/11 04:28 Order name: Ptt, Activated; Complete Time: 06:02 sp4 01/11 04:28 Order name: Troponin HS; Complete Time: 06:02 sp4 01/11 04:28 Order name: ABG; Complete Time: 06:02 sp4 01/11 08:51 Order name: COVID-19 SARS RT PCR ss 01/11 10:14 Order name: SARS-COV-2 RT PCR EDMS 01/11 04:29 Order name: CT Chest, Abdomen, Pelvis - W/Contrast sp4 01/11 04:28 Order name: EKG; Complete Time: 04:29 sp4 01/11 04:28 Order name: Cardiac monitoring; Complete Time: 06:56 sp4 01/11 04:28 Order name: EKG - Nurse/Tech; Complete Time: 06:56 sp4 01/11 04:28 Order name: IV Saline Lock; Complete Time: 05:11 sp4 01/11 04:28 Order name: Labs collected and sent; Complete Time: 05:11 sp4 01/11 04:28 Order name: O2 Per Protocol; Complete Time: 05:11 sp4 01/11 04:28 Order name: O2 Sat Monitoring; Complete Time: 05:11 sp4 EC:54 Rate is 86 beats/min. Rhythm is regular, Normal Sinus Rhythm. RI interval is normal. No sp4 ST changes noted. Clinical impression: No evidence of ischemia. Interpreted by me. Administered Medications: 04:47 Not Given (Physician Discretion): DuoNeb Nebulize (3:1) (2.5 mg - 0.5 mg) 3 ml aa9 Nebulizer once 05:00 Drug: Ondansetron IVP 4 mg Route: IVP; Site: right wrist; aa9 05:52 Follow up: Response: No adverse reaction aa9 05:05 Drug: MethylPrednisoLONE IVP 125 mg Route: IVP; Site: right wrist; aa9 11:30 Follow up: Response: No adverse reaction db 05:07 Drug: morphine IVP or IV 4 mg Route: IVP; Infused Over: 4 mins; Site: right wrist; aa9 05:52 Follow up: Response: No adverse reaction; Pain is decreased aa9 05:17 Drug: NS 0.9% IV 1000 ml Route: IV; Rate: 125 ml/hr; Site: right wrist; aa9 11:30 Follow up: IV Status: Infusion continued upon admission db 05:17 Drug: Albuterol Inhalation 2.5 mg Route: Inhalation; aa9 05:47 Drug: Rocephin - Rocephin (cefTRIAXone) IVPB 1 grams Route: IVPB; Infused Over: 30 aa9 mins; Site: left forearm; 05:51 Follow up: Response: No adverse reaction; IV Status: Completed infusion; IV Intake: aa9 100ml 07:15 Drug: vancoMYCIN IVPB 1 grams Route: IVPB; Infused Over: 2 hrs; Site: left forearm; db 10:30 Follow up: Response: No adverse reaction; IV Status: Completed infusion; IV Intake: db 250ml 07:40 Drug: Zithromax IVPB 500 mg Route: IVPB; Infused Over: 1 hrs; Site: right wrist; db 08:40 Follow up: Response: No adverse reaction; IV Status: Completed infusion; IV Intake: db 250ml Disposition Summary: 01/11/23 07:09 Hospitalization Ordered Hospitalization Status: Inpatient Admission sp4 Provider: Abebe Sweeney4 Location: Telemetry/[facility] (Inpatient) sp4 Condition: Stable sp4 Problem: new sp4 Symptoms: have improved sp4 Bed/Room Type: Standard sp4 Room Assignment: 217(01/11/23 10:59) dw Diagnosis - Bilateral multifocal pneumonia, left renal infarct, right renal infarct, COPD sp4 exacerbation Forms: - Medication Reconciliation Form sp4 - SBAR form sp4 Signatures: Dispatcher [employer] Zonia Hare, RN RN dw Birdie Ayala RN RN kd3 Naila Galindo RN RN aa9 Jessica Rey RN RN db Juanjose Somers MD MD sp4 Corrections: (The following items were deleted from the chart) 10:59 07:09 sp4 dw
--- NOTE | 2023-01-11 07:09 | ER ---
Nurse's Notes [facility] Name: Mary Fischer Age: 57 yrs Sex: Female : 1965 Arrival Date: 01/11/2023 Time: 04:02 Bed 17 Private MD: Diagnosis: Bilateral multifocal pneumonia, left renal infarct, right renal infarct, COPD exacerbation Presentation: 01/11 04:08 Chief complaint: Patient states: I have been short of breath for about 3 weeks. I am kd3 tired of not being able to breathe. Coronavirus screen: Vaccine status: Patient reports being unvaccinated. Ebola Screen: No symptoms or risks identified at this time. Initial Sepsis Screen: Does the patient meet any 2 criteria? No. Patient's initial sepsis screen is negative. Does the patient have a suspected source of infection? No. Patient's initial sepsis screen is negative. Risk Assessment: Do you want to hurt yourself or someone else? Patient reports no desire to harm self or others. Onset of symptoms was January 11, 2023. 04:08 Method Of Arrival: Wheelchair kd3 04:08 Acuity: MAMADOU 2 kd3 Triage Assessment: 04:10 General: Appears uncomfortable, Behavior is cooperative. Pain: Complains of pain in kd3 right lower quadrant. Respiratory: Reports shortness of breath at rest Onset: The symptoms/episode began/occurred gradually, the patient has moderate shortness of breath. Historical: - Allergies: 04:10 PENICILLINS; kd3 04:10 Clarithromycin; kd3 04:10 bixon; kd3 - PMHx: 04:10 Chronic obstructive lung disease; kd3 - PSHx: 04:10 Total abdominal hysterectomy; kd3 - Immunization history:: Adult Immunizations up to date. - Social history:: Smoking status: Patient reports the use of cigarette tobacco products, smokes one pack cigarettes per day. - Family history:: not pertinent. Screenin:48 [facility] ED Fall Risk Assessment (Adult) History of falling in the last 3 months, db including since admission No falls in past 3 months (0 pts) Confusion or Disorientation No (0 pts) Intoxicated or Sedated No (0 pts) Impaired Gait No (0 pts) Mobility Assist Device Used No (0 pt) Altered Elimination No (0 pt) Score/Fall Risk Level 0 - 2 = Low Risk Oriented to surroundings, Maintained a safe environment. Abuse screen: Denies threats or abuse. Denies injuries from another. Nutritional screening: No deficits noted. Tuberculosis screening: No symptoms or risk factors identified. Assessment: 04:19 General: patient requests that we call her friend Melodie Ruiz for updates at [facility] [phone]. 06:57 Reassessment: Patient appears in no apparent distress at this time. Patient and/or aa9 family updated on plan of care and expected duration. Pain level reassessed. Patient denies pain at this time. Cardiovascular: Rhythm is regular. Respiratory: Airway is patent Respiratory effort is even, unlabored. 07:30 Reassessment: Patient appears in no apparent distress at this time. patient ambulatory db to restroom. 07:30 Respiratory: Breath sounds are diminished. db 09:40 Reassessment: See [facility] for continued charting. db Vital Signs: 04:07 BP 128 / 86; Pulse 101; Resp 24; Temp 97.6(O); Pulse Ox 88% on R/A; Weight 74.84 kg; kd3 Height 5 ft. 0 in. ; 04:18 BP 127 / 76; Pulse 105; Resp 23; Pulse Ox 92% on 3 lpm NC; kd3 05:30 BP 100 / 60; Pulse 87; Resp 20 S; Pulse Ox 96% on 4 lpm NC; aa9 06:56 BP 102 / 66; Pulse 91; Resp 24; Pulse Ox 94% on 4 lpm NC; aa9 07:15 BP 109 / 68; Pulse 88; Resp 24; Pulse Ox 97% on 4 lpm NC; db 04:07 Body Mass Index 32.22 (74.84 kg, 152.4 cm) kd3 ED Course: 04:03 Patient arrived in ED. ja2 04:10 Triage completed. kd3 04:10 Arm band placed on right wrist. kd3 04:22 Juanjose Somers MD is Attending Physician. sp4 04:29 Naila Galindo, SISSY is Primary Nurse. aa9 05:00 Inserted saline lock: 20 gauge in right wrist, using aseptic technique. Blood collected.aa9 05:11 CBC with Diff Sent. aa9 05:11 CPK Sent. aa9 05:11 Hepatic Function Sent. aa9 05:11 Lipase Sent. aa9 05:11 Magnesium Sent. aa9 05:11 NT PRO-BNP Sent. aa9 05:11 PT-INR Sent. aa9 05:11 Ptt, Activated Sent. aa9 05:11 Troponin HS Sent. aa9 05:11 BMP Sent. aa9 05:47 Patient has correct armband on for positive identification. Bed in low position. Call aa9 light in reach. Client placed on continuous cardiac and pulse oximetry monitoring. NIBP monitoring applied. 05:47 Inserted saline lock: 20 gauge in left forearm, using aseptic technique. Blood aa9 collected. 06:25 CT Chest, Abdomen, Pelvis - W/Contrast In Process Unspecified. EDMS 07:08 Abebe Sweeney MD is Hospitalizing Provider. sp4 09:40 No provider procedures requiring assistance completed. Patient admitted, IV remains in db place. Administered Medications: 04:47 Not Given (Physician Discretion): DuoNeb Nebulize (3:1) (2.5 mg - 0.5 mg) 3 ml aa9 Nebulizer once 05:00 Drug: Ondansetron IVP 4 mg Route: IVP; Site: right wrist; aa9 05:52 Follow up: Response: No adverse reaction aa9 05:05 Drug: MethylPrednisoLONE IVP 125 mg Route: IVP; Site: right wrist; aa9 11:30 Follow up: Response: No adverse reaction db 05:07 Drug: morphine IVP or IV 4 mg Route: IVP; Infused Over: 4 mins; Site: right wrist; aa9 05:52 Follow up: Response: No adverse reaction; Pain is decreased aa9 05:17 Drug: NS 0.9% IV 1000 ml Route: IV; Rate: 125 ml/hr; Site: right wrist; aa9 11:30 Follow up: IV Status: Infusion continued upon admission db 05:17 Drug: Albuterol Inhalation 2.5 mg Route: Inhalation; aa9 05:47 Drug: Rocephin - Rocephin (cefTRIAXone) IVPB 1 grams Route: IVPB; Infused Over: 30 aa9 mins; Site: left forearm; 05:51 Follow up: Response: No adverse reaction; IV Status: Completed infusion; IV Intake: aa9 100ml 07:15 Drug: vancoMYCIN IVPB 1 grams Route: IVPB; Infused Over: 2 hrs; Site: left forearm; db 10:30 Follow up: Response: No adverse reaction; IV Status: Completed infusion; IV Intake: db 250ml 07:40 Drug: Zithromax IVPB 500 mg Route: IVPB; Infused Over: 1 hrs; Site: right wrist; db 08:40 Follow up: Response: No adverse reaction; IV Status: Completed infusion; IV Intake: db 250ml Medication: 09:40 VIS not applicable for this client. db Intake: 05:51 IV: 100ml; Total: 100ml. aa9 08:40 IV: 250ml; Total: 350ml. db 10:30 IV: 250ml; Total: 600ml. db Outcome: 07:09 Decision to Hospitalize by Provider. sp4 09:40 Admitted to ER Hold. Please see [facility] for further documentation. db 09:40 Condition: stable 09:40 Instructed on the need for admit. 12:00 Patient left the ED. db Signatures: Dispatcher [employer] EDMS Fariba Napier Kyli, RN RN kd3 Naila Galindo RN RN aa9 Jessica Rey RN RN db Juanjose Somers MD MD sp4
[2023-01-11] MEDS ORDERED: VANCOMYCIN 1 GM/VIAL ONE (07:33)
[2023-01-11] MEDS ORDERED: NA CHLORIDE 0.9% 500 ML ONE (07:34)
[2023-01-11] MEDS ORDERED: AZITHROMYCIN 500 MG INJ IVPB ONE (07:34)
[2023-01-11] MEDS ORDERED: ALBUTEROL 2.5 MG/3 ML NEB SOL NEB SCH (08:00)
[2023-01-11] MEDS ORDERED: MORPHINE 2 MG/ML SYR IV PRN (10:40)
[2023-01-11] MEDS ORDERED: ONDANSETRON 4 MG/2 ML VIAL IV PRN (10:40)
[2023-01-11] MEDS ORDERED: ACETAMINOPHEN 500 MG TAB PO PRN (10:40)
[2023-01-11] MEDS: INSULIN -REGULAR HUMAN 50 UNIT/0.5 ML ML SQ SCH ×4 (11:30→21:22)
[2023-01-11] MEDS: ENOXAPARIN 40 MG/0.4 ML SQ SCH (12:25)
[2023-01-11] MEDS ORDERED: GLUCAGON 1 MG/VIAL IM PRN (13:48)
[2023-01-11] MEDS ORDERED: D50W 25 GM/50 ML SYRINGE IV PRN (13:48)
--- NOTE | 2023-01-11 13:58 | P.HP ---
Certification for Inpatient Patient admitted to: Inpatient With expected LOS: >2 Midnights Practitioner: I am a practitioner with admitting privileges, knowledge of patient current condition, hospital course, and medical plan of care. 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 she has a history of dm2, copd, and nicotine dependence. The patient has been having sob at night. Has been having allergy symptoms. Also trying to wean herself down off chronic prednisone. This is admirable. Unfortunately she was getting more short of breath. Also exhausted as she could not sleep. Will admit her for copd exacerbation. Allergies clarithromycin [From Biaxin] Allergy (Verified 03/18/22 17:56) Unknown Penicillins Allergy (Verified 03/18/22 17:56) Unknown Home Medications: Albuterol Inhaler [Ventolin Inhaler*] 2 puff IH Q6H PRN 30 Days #30 gm 08/20/22 Budesonide/Formoterol Fumarate [Budesonide-Formoterol 160-4.5] 10.2 gm IH 01/11/23 Metformin HCl 500 mg PO BID 01/11/23 Mometasone/Formoterol [Dulera 200 Mcg-5 Mcg Inhaler] 01/11/23 Nicotine [Nicotine Patch] 1 each TD DAILY 01/11/23 Prednisone [Sterapred Ds] 10 mg PO DAILY 01/11/23 Simvastatin 20 mg PO DAILY 01/11/23 - Past Medical/Surgical History Diabetic: No -: COPD -: total abdominal hysterectomy - Family History Father -: Cancer Mother -: Cancer - Social History Smoking Status: Current every day smoker Alcohol use: No CD- Drugs: No Caffeine use: Yes Review of Systems 10-point ROS is otherwise unremarkable ENT: Nose Congestion Respiratory: Cough, Shortness of Breath Physical Examination - Vital Signs Temperature: 97.6 F Blood Pressure: 109/68 Pulse: 88 Respirations: 24 Pulse Ox (%): 96 - Physical Exam General: Alert, In no apparent distress HEENT: Atraumatic, PERRLA, Mucous membr. moist/pink, EOMI, Sclerae nonicteric Neck: Supple, 2+ carotid pulse no bruit, No LAD, Without JVD or thyroid abnormality Respiratory: Clear to auscultation bilaterally, Rhonchi/gurgles Cardiovascular: Regular rate/rhythm, Normal S1 S2 Gastrointestinal: Normal bowel sounds, No tenderness Musculoskeletal: No tenderness Integumentary: No rashes Neurological: Normal gait, Normal speech, Normal strength at 5/5 x4 extr, Normal tone, Normal affect Lymphatics: No axilla or inguinal lymphadenopathy - Studies Laboratory Data (last 24 hrs) 01/11/23 05:00: PT 10.7, INR 0.97, APTT 26.7 01/11/23 05:00: WBC 13.50 H, Hgb 15.1 H, Hct 46.0 H, Plt Count 254 01/11/23 05:00: Sodium 134 L, Potassium 4.4, BUN 18, Creatinine 0.89, Glucose 284 H, Magnesium 2.0, Total Bilirubin 0.5, AST 66 H, ALT 93 H, Alkaline Phosphatase 84, Lipase 18 Assessment and Plan - Problems (Diagnosis) (1) COPD exacerbation Current Visit: Yes Status: Acute Plan: will admit to the hospital and start the patient on steroids and breathing treatment (2) Type 2 diabetes mellitus without complications Current Visit: No Status: Acute Plan: restart her metformin. Will add a sliding scale. Consider increasing her diabetic control. Will check an a1c. Qualifiers: Diabetes mellitus fpc insulin use: without fpc use Qualified Code(s): E11.9 - Type 2 diabetes mellitus without complications (3) Tobacco use Current Visit: No Status: Chronic Plan: she can be placed on a nicotine patch. She has weaned down to 10cig a day. Discharge Plan: Home Plan to discharge in: 24 Hours - Advance Directives Does patient have a Living Will: No Does patient have a Durable POA for Healthcare: No - Code Status/Comfort Care Code Status Assessed: No Physician Review: Patient Assessed, Agree with Above Assessment and Plan Critical Care: No Time Spent Managing Pts Care (In Minutes): 45
[2023-01-11] MEDS ORDERED: D10W 125 ML IV PRN (14:24)
[2023-01-11] MEDS ORDERED: LEVALBUTEROL 0.63 MG/3 ML NEB NEB PRN (16:00)
[2023-01-11] MEDS ORDERED: ENOXAPARIN 40 MG/0.4 ML SQ SCH (17:00)
[2023-01-11] MEDS: METFORMIN HCL 500 MG TAB PO SCH (17:00)
[2023-01-11] MEDS: dexAMETHasone 4 MG/ML VIAL IV SCH (17:27)
--- NOTE | 2023-01-11 20:37 | RAD REPORT ---
EXAM DESCRIPTION: CT - Chest Abdomen Pelvis W Cont - 01/11/2023 7:05 am TECHNIQUE: Axial images were taken through the chest, abdomen and pelvis after the administration of IV contrast. All CT scans at this facility use dose modulation, iterative reconstruction, and/or w eight based dosing when appropriate to reduce radiation dose to as low as reasonably achievable CLINICAL HISTORY: CHEST PAIN COMPARISON: Abdominal/pelvic CT, 03/18/2022 FINDINGS: CHEST: Mediastinum: The heart and great vessels appear unremarkable. There is no pericardial effusion. There is no pathologically enlarged adenopathy. There are small mediastinal lymph nodes, likely reactive i n nature, but none of these meet CT criteria for lymphadenopathy. Lungs: There are small bilateral pleural effusions, slightly larger on the right than the left. Patch y groundglass opacities present throughout all lobes of the lungs bilaterally. No focal consolidation identified. No dominant pulmonary nodules or masses. No evidence of pneumothorax. Bones: There is mild multilevel degenerative disc disease throughout the mid/lower thoracic spine. Th e soft tissues and osseous structures are otherwise unremarkable. ABDOMEN: There is mild fatty infiltration of the liver. There is no evidence for mass or intrahepatic biliary ductal dilatation. The gallbladder appears unremarkable. There is no evidence for gallbladder wall thickening or pericholecystic fluid. The adrenal glands, pancreas and spleen are normal. There are small cortical defects involving the left kidney compatible with multiple infarcts. There is also a w edge-shaped focal area of diminished cortical perfusion involving the upper pole of the right kidney raising suspicion for an acute or subacute infarct. The kidneys are otherwise unremarkable. There is no evidence for hydronephrosis or stone. There are single renal arteries bilaterally. There is normal enhancement of the bilateral renal arteries. The large and small bowel of the abdomen and pelvis appears unremarkable. The appendix is not visua lized with evidence of previous appendectomy. PELVIS: There is diffuse atherosclerotic disease seen within the aorta. There is no evidence for aneurysm. Th ere is no pathologically enlarged adenopathy. The urinary bladder appears unremarkable. There is no free air or free fluid. The uterus is not vi sualized and presumed surgically absent. No obvious adnexal abnormalities are seen. There are no acute bony or soft tissue abnormalities. There is evidence of mild multilevel degenerati ve disc disease in the mid/lower lumbar spine. IMPRESSION: 1. Patchy groundglass opacities throughout all lobes of the lungs bilaterally compatible with a nonspecific infectious/inflammatory process. Clinical correlation and follow-up chest radiogr aphs are recommended. 2. Small bilateral pleural effusions are likely reactive in nature. 3. There are small cortical defects involving the left kidney compatible with multiple remote left re nal infarcts/scars. In addition, the patient has a wedge-shaped area of diminished cortical perfusion involving the upper pole of the right kidney suspicious for an acute/subacute infarct. This could in dicate embolic disease given the bilateral findings and correlation with clinical history/symptoms is recommended. 4. Mild fatty infiltration of the liver. 5. Status post hysterectomy and appendectomy. Electronically signed by: Brandon Wick MD 01/11/2023 6:41 AM CDT Due to temporary technical issues with the PACS/Fluency reporting system, reports are being signed by the in house radiologists without review as a courtesy to insure prompt reporting. The interpreting radiologist is fully responsible for the content of the report.
[2023-01-11] MEDS: ATORVASTATIN 10 MG TAB PO SCH (21:22)
[2023-01-12] MEDS: ZOLPIDEM TARTRATE 5 MG TABLET PO PRN (01:50)
[2023-01-12] MEDS: dexAMETHasone 4 MG/ML VIAL IV SCH ×3 (01:50→16:42)
[2023-01-12 06:07] LABS: Absolute Lymphocytes (CBC) 1.1 K/uL (0.7-4.9); Hematocrit 40.8 % (36.0-45.0); Lymphocytes % 9.3 % (15.3-44.8); MPV 9.7 fL (7.6-11.3); RBC Red Blood Cell Count 4.59 M/uL (3.86-4.86)
[2023-01-12 06:23] LABS: Albumin 2.9 g/dL (3.4-5.0); Bilirubin Total 0.4 mg/dL (0.2-1.0); Potassium 4.4 mEq/L (3.5-5.1); Protein, Total 5.8 g/dL (6.4-8.2)
[2023-01-12] MEDS: METFORMIN HCL 500 MG TAB PO SCH ×2 (08:00→17:00)
[2023-01-12] MEDS: NICOTINE 7 MG/PAT TD SCH (09:00)
[2023-01-12] MEDS: PANTOPRAZOLE 40MG TABLET PO SCH (09:07)
[2023-01-12] MEDS: ENOXAPARIN 40 MG/0.4 ML SQ SCH (09:07)
[2023-01-12] MEDS: INSULIN -REGULAR HUMAN 50 UNIT/0.5 ML ML SQ SCH ×4 (09:08→20:56)
[2023-01-12 12:29] VITALS: BMI 27.1
--- NOTE | 2023-01-12 14:33 | P.PN ---
Subjective Date of Service: 01/12/23 Primary Care Provider: Patel Chief Complaint: copd exacerbation Subjective: Improving Review of Systems 10-point ROS is otherwise unremarkable Physical Examination - Vital Signs Temperature: 97.8 F Blood Pressure: 109/71 Pulse: 98 Respirations: 18 Pulse Ox (%): 93 - Physical Exam General: Alert, In no apparent distress HEENT: Atraumatic, PERRLA, EOMI Neck: Supple, JVD not distended Respiratory: Clear to auscultation bilaterally, Normal air movement Cardiovascular: Regular rate/rhythm, Normal S1 S2 Gastrointestinal: Normal bowel sounds, No tenderness Musculoskeletal: No tenderness Integumentary: No rashes Neurological: Normal speech, Normal tone, Normal affect Lymphatics: No axilla or inguinal lymphadenopathy Assessment And Plan - Current Problems (Diagnosis) (1) COPD exacerbation Current Visit: Yes Status: Acute Plan: will admit to the hospital and start the patient on steroids and breathing treatment (2) Type 2 diabetes mellitus without complications Current Visit: Yes Status: Acute Plan: restart her metformin. Will add a sliding scale. Consider increasing her diabetic control. Will check an a1c. Qualifiers: Diabetes mellitus long term care phlebotomist insulin use: without long term care phlebotomist use Qualified Code(s): E11.9 - Type 2 diabetes mellitus without complications (3) Tobacco use Current Visit: No Status: Chronic Plan: she can be placed on a nicotine patch. She has weaned down to 10cig a day. Discharge Plan: Home Plan to discharge in: 24 Hours - Code Status/Comfort Care Code Status Assessed: No Physician Review: Patient Assessed, Agree with Above Assessment and Plan Critical Care: No Time Spent Managing PTS Care (In Minutes): 20
[2023-01-12] MEDS: ATORVASTATIN 10 MG TAB PO SCH (20:54)
[2023-01-13] MEDS: dexAMETHasone 4 MG/ML VIAL IV SCH ×2 (00:44→08:55)
[2023-01-13] MEDS: ZOLPIDEM TARTRATE 5 MG TABLET PO PRN (00:53)
[2023-01-13 06:19] VITALS: O2SAT 92
[2023-01-13] MEDS: PANTOPRAZOLE 40MG TABLET PO SCH (06:43)
[2023-01-13 06:58] LABS: Absolute Lymphocytes (CBC) 1.1 K/uL (0.7-4.9); Hematocrit 43.2 % (36.0-45.0); Lymphocytes % 8.2 % (15.3-44.8); MCV 88.7 fL (80-100); MPV 9.5 fL (7.6-11.3); RBC Red Blood Cell Count 4.87 M/uL (3.86-4.86)
[2023-01-13 07:17] LABS: Albumin 3.1 g/dL (3.4-5.0); Bilirubin Total 0.5 mg/dL (0.2-1.0); Potassium 4.1 mEq/L (3.5-5.1); Protein, Total 6.3 g/dL (6.4-8.2)
--- NOTE | 2023-01-13 07:58 | EKG ---
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
[2023-01-13] MEDS: METFORMIN HCL 500 MG TAB PO SCH (08:00)
[2023-01-13] MEDS: ENOXAPARIN 40 MG/0.4 ML SQ SCH (08:55)
[2023-01-13 08:57] VITALS: BP 131/81; TEMP 96.6
[2023-01-13] MEDS: INSULIN -REGULAR HUMAN 50 UNIT/0.5 ML ML SQ SCH (08:59)
[2023-01-13] MEDS: NICOTINE 7 MG/PAT TD SCH (09:00)
== END 2023-01-13 10:57 | disposition home or self-care (01) | DRG 190 ==
LOC: ER 04:02 → ERHOLD 07:11 → 2ND 11:31
PROVIDERS: ADMIT Internal Medicine; ATTEND Internal Medicine
DX: J44.1 Chronic obstructive pulmonary disease with (acute) exacerbation (principal); J18.9 Pneumonia, unspecified organism; N28.0 Ischemia and infarction of kidney; J44.0 Chronic obstructive pulmonary disease with (acute) lower respiratory infection; E11.9 Type 2 diabetes mellitus without complications; K76.0 Fatty (change of) liver, not elsewhere classified; I45.10 Unspecified right bundle-branch block; F17.210 Nicotine dependence, cigarettes, uncomplicated; Z88.0 Allergy status to penicillin; Z79.84 Long term (current) use of oral hypoglycemic drugs; Z88.1 Allergy status to other antibiotic agents; Z90.49 Acquired absence of other specified parts of digestive tract; Z79.52 Long term (current) use of systemic steroids; Z90.710 Acquired absence of both cervix and uterus; Z79.899 Other long term (current) drug therapy; Z20.822 Contact with and (suspected) exposure to COVID-19
CPT/HCPCS: 36415; 71260; 74177; 80048; 80053; 80076; 82550; 82805; 82947; 83036; 83690; 83735; 83880; 84484; 85025; 85610; 85730; 87040; 93005; 94640; 99285; J0696; J1100; J1650; J1815; J2405; J2930; J7030; J7050; J7613; J7614; Q9967; U0003

== ENCOUNTER 2023-02-12 18:11 | Inpatient (IN) | payer SELFPAY ==
--- OUTSIDE RECORDS SUMMARY | 2023-02-12 18:13 | XMS REPORT | Continuity of Care Document ---
:1965 [address] [facility] t Address [address] [facility] [address] [place] [id number] Care Team Providers Name Role Phone Unavailable [...] Clinicians Facility Department ID 2022-12-04 2022-12-04 Outpatient [facility] [id number] Garth 14:31:59 14:31:59 0330 F Andres Results This patient has no known results.
[2023-02-12] MEDS ORDERED: ETOMIDATE 20 MG/10 ML VIAL IV ONE (18:17)
[2023-02-12] MEDS ORDERED: ROCURONIUM 50 MG/5 ML VIAL IV ONE (18:18)
[2023-02-12 18:34] LABS: Protime INR 0.95
[2023-02-12] MEDS ORDERED: propofoL 1,000 MG/100 ML VIAL IV ONE (18:40)
--- NOTE | 2023-02-12 18:42 | P.HP ---
Certification for Inpatient Patient admitted to: Inpatient With expected LOS: >2 Midnights Practitioner: I am a practitioner with admitting privileges, knowledge of patient current condition, hospital course, and medical plan of care. 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 With a history of copd, dm2, nicotine dependence. 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 She had a collapse. Was found to be hypoxic when the fire dept responded. Brought to the ER. Was not breathing and was intubated. Allergies clarithromycin [From Biaxin] Allergy (Verified 03/18/22 17:56) Unknown Penicillins Allergy (Verified 03/18/22 17:56) Unknown Home Medications: Albuterol Inhaler [Ventolin Inhaler*] 2 puff IH Q6H PRN 30 Days #30 gm 08/20/22 Budesonide/Formoterol Fumarate [Budesonide-Formoterol 160-4.5] 10.2 gm IH 01/11/23 Metformin HCl 500 mg PO BID 01/11/23 Mometasone/Formoterol [Dulera 200 Mcg-5 Mcg Inhaler] 01/11/23 Nicotine [Nicotine Patch] 1 each TD DAILY 01/11/23 Prednisone [Sterapred Ds] 10 mg PO DAILY 01/11/23 Simvastatin 20 mg PO DAILY 01/11/23 Prednisone [Sterapred Ds] 10 mg PO BID 6AM 6PM 30 Days #60 tab 01/13/23 - Past Medical/Surgical History Diabetic: No -: COPD -: total abdominal hysterectomy - Family History Father -: Cancer Mother -: Cancer - Social History Alcohol use: No CD- Drugs: No Caffeine use: Yes Review of Systems is unable to be obtained Physical Examination - Physical Exam General: Alert, Unresponsive HEENT: Atraumatic, PERRLA, Mucous membr. moist/pink, EOMI, Sclerae nonicteric Neck: Supple, 2+ carotid pulse no bruit, No LAD, Without JVD or thyroid abnormality Respiratory: Diminished Cardiovascular: Regular rate/rhythm, Normal S1 S2 Gastrointestinal: Normal bowel sounds, No tenderness Musculoskeletal: No tenderness Integumentary: No rashes Neurological: Normal gait, Normal speech, Normal strength at 5/5 x4 extr, Normal tone, Normal affect Lymphatics: No axilla or inguinal lymphadenopathy - Studies Laboratory Data (last 24 hrs) 02/12/23 18:10: PT 10.4, INR 0.95, APTT 28.0 Assessment and Plan - Problems (Diagnosis) (1) Respiratory failure Current Visit: Yes Status: Acute Plan: will admit to the ICU. Consult to Dr. Amaya. Will start her on steroids. Attempt weaning in the am Qualifiers: Chronicity: acute Respiratory failure complication: hypoxia Qualified Code(s): J96.01 - Acute respiratory failure with hypoxia (2) Type 2 diabetes mellitus without complications Current Visit: No Status: Acute Plan: will use a low dose sliding scale. She will be on steroids for the respiratory failure. 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 Qualifiers: COPD type: chronic bronchitis Chronic bronchitis type: simple Qualified Code(s): J41.0 - Simple chronic bronchitis Discharge Plan: Home Plan to discharge in: Greater than 2 days - Advance Directives Does patient have a Living Will: No Does patient have a Durable POA for Healthcare: No - Code Status/Comfort Care Code Status Assessed: Yes Code Status: Full Code Physician Review: Patient Assessed, Agree with Above Assessment and Plan Critical Care: Yes Time Spent Managing Pts Care (In Minutes): 45
[2023-02-12] MEDS ORDERED: HYDRALAZINE HCL 20 MG/ML VIAL IV PRN (18:43)
[2023-02-12] MEDS ORDERED: GLUCAGON 1 MG/VIAL IM PRN ×2 (18:43→23:52)
[2023-02-12] MEDS ORDERED: D10W 250 ML BAG IV PRN (18:43)
--- NOTE | 2023-02-12 18:46 | ER ---
Nurse's Notes [facility] Name: Mary Fischer Age: 58 yrs Sex: Female : 1965 Arrival Date: 02/12/2023 Time: 18:11 Bed 3 Private MD: Diagnosis: Acute respiratory failure with hypoxia;COPD/ Chronic obstructive pulmonary disease with (acute) exacerbation;Heart failure, unspecified;Severe sepsis with septic shock Presentation: 02/12 18:20 Chief complaint: EMS states: pt was at the [place] police dept. when she began having kc6 sob. pt was found to be 50% on RA and then was 80% on high flow. pt refused to come to to the hospital for apprixmately 10min. pt was clammy on scene. BGL en route 288. 125mg of solumedrol admin en route. Coronavirus screen: At this time, the client does not indicate any symptoms associated with coronavirus-19. Ebola Screen: No symptoms or risks identified at this time. Initial Sepsis Screen: Does the patient meet any 2 criteria? RR > 20 per min. HR > 90 bpm. No. Patient's initial sepsis screen is negative. Does the patient have a suspected source of infection? No. Patient's initial sepsis screen is negative. Risk Assessment: Do you want to hurt yourself or someone else? Patient reports no desire to harm self or others. Onset of symptoms was February 12, 2023. 18:20 Method Of Arrival: EMS: [facility] kc6 18:20 Acuity: MAMADOU 1 kc6 Triage Assessment: 18:20 General: Appears distressed, Behavior is unresponsive. Pain: Unable to use pain scale. kc6 Patient is unresponsive. EENT: No signs and/or symptoms were reported regarding the EENT system. Neuro: Level of Consciousness is unresponsive, Oriented to none. Cardiovascular: Capillary refill < 3 seconds Rhythm is sinus tachycardia. Respiratory: Airway is patent pt being bagged Trachea midline Respiratory effort is even, labored, Respiratory pattern is symmetrical, tachypnea. GI: No signs and/or symptoms were reported involving the gastrointestinal system. : No signs and/or symptoms were reported regarding the genitourinary system. Derm: No signs and/or symptoms reported regarding the dermatologic system. Skin is intact, Skin is pink, warm \T\ dry. Musculoskeletal: No signs and/or symptoms reported regarding the musculoskeletal system. Circulation, motion, and sensation intact. Capillary refill < 3 seconds, Range of motion: intact in all extremities. Historical: - Allergies: 18:16 Clarithromycin; ko1 18:16 PENICILLINS; ko1 18:17 Biaxin; ko1 - PMHx: 18:16 Chronic obstructive lung disease; ko1 18:27 Diabetes mellitus; Pneumonia; kc6 - PSHx: 18:16 Total abdominal hysterectomy; ko1 - Immunization history:: Adult Immunizations unknown. - Social history:: Smoking status: unknown. Screenin:27 [facility] ED Fall Risk Assessment (Adult) History of falling in the last 3 months, kc6 including since admission No falls in past 3 months (0 pts) Confusion or Disorientation No (0 pts) Intoxicated or Sedated Yes (3 pts) Impaired Gait No (0 pts) Mobility Assist Device Used No (0 pt) Altered Elimination Yes (1 pt) Score/Fall Risk Level 3 or more points = High Risk Oriented to surroundings, Maintained a safe environment, Educated pt \T\ family on fall prevention, incl call for assistance when getting out of bed, Assessed \T\ reinforced patient's understanding of fall precautions, Hourly rounding (assess needs \T\ fall precautionary measures) done. Abuse screen: Denies threats or abuse. Denies injuries from another. Nutritional screening: No deficits noted. Tuberculosis screening: No symptoms or risk factors identified. 20:00 Sepsis Screening: SIRS - Systemic Inflammatory Response Syndrome: 2 or more indicates sg5 positive screen: [heart rate greater than 90 beats per minute] [respiratory rate is greater than 20 breaths per minute] [WBC greater than or equal to 12,000/mm3 or less than or equal to 4,000/mm3 or greater than 0.5 K/uL bands] [blood glucose greater than 140 ml/dL in non-diabetic patient] Organ Dysfunction: One or more within 3 days of new infection: [Respiratory: SaO2 less than 90% or increasing O2 requirements]. Sepsis Screening:. Assessment: 18:24 Reassessment: please see triage assessment. kc6 Vital Signs: 18:15 BP 167 / 93; Pulse 123; Resp 24 A; Pulse Ox 90% on 100 lpm BVM; ko1 18:15 BP 147 / 92; Pulse 123; Resp 19 A; Pulse Ox 100% on ETT vent; kc6 18:15 BP 171 / 108; Pulse 138; Resp 14 A; Pulse Ox 90% on ETT vent; kc6 18:34 Weight 71.5 kg (M); Height 5 ft. 5 in. ; kc6 18:40 Temp 97.8(TE); em1 19:10 BP 166 / 100; Pulse 126; Resp 14; Pulse Ox 96% on 100% FiO2 ETT vent; sg5 19:30 BP 167 / 99; Pulse 124; Resp 18; Pulse Ox 97% on 100% FiO2 ETT vent; sg5 20:00 BP 111 / 74; Pulse 99; Resp 18; Temp 97.9; Pulse Ox 99% on 100% FiO2 ETT vent; sg5 20:00 BP 94 / 63; Pulse 89; Resp 20; Pulse Ox 100% on 100% FiO2 ETT vent; sg5 18:34 Body Mass Index 26.23 (71.50 kg, 165.1 cm) kc6 ED Course: 18:12 Patient arrived in ED. ko1 18:15 Arm band placed on right wrist. ko1 18:15 Assisted provider with intubation using 7.5 mm ETT via oral route. ET tube secured at kc6 21cm at the lips. Set up intubation tray. Placement verified by CO2 detector w/ + color change, auscultating bilateral breath sounds, End-tidal CO2 montioring CXR, Patient tolerated well. 18:19 OG 16F. kc6 18:22 Triage completed. kc6 18:23 Inserted saline lock: 20 gauge in right forearm, using aseptic technique. Blood kc6 collected. Maintain EMS IV. Dressing intact. Good blood return noted. Site clean \T\ dry. Gauge \T\ site: 22 LFA. 18:24 Patient has correct armband on for positive identification. Bed in low position. Call kc6 light in reach. Side rails up X2. 18:30 Nils Smith DO is Attending Physician. ms3 18:35 Roberts cath inserted, using sterile technique, 16 Fr., by engineering programmer, balloon inflated, to kc6 gravity drainage, clamped. urine specimen collected. 18:45 Abebe Sweeney MD is Hospitalizing Provider. ms3 19:00 First set of blood cultures drawn by me, Second set of blood cultures drawn by ED staff.jw7 19:06 Blood Culture Adult (2) Sent. jw7 19:09 Heydi Stoll, RN is Primary Nurse. sg5 02/13 00:50 Patient admitted, IV remains in place. kd3 Administered Medications: 02/12 18:13 Drug: Etomidate IVP 10 mg Route: IVP; Site: right forearm; kc6 18:59 Follow up: Response: No adverse reaction; RASS: Deep sedation (-4) kc6 18:14 Drug: Rocuronium IVP 50 mg Route: IVP; Site: right forearm; kc6 18:59 Follow up: Response: No adverse reaction kc6 18:37 Drug: Propofol IV 5 mcg/kg/min Route: IV; Rate: calculated rate; Site: right kc6 antecubital; 18:43 Follow up: Rate change 7 mcg/kg/min kc6 18:49 Follow up: Rate change 9 mcg/kg/min kc6 18:52 Follow up: Rate change 11 mcg/kg/min kc6 18:57 Follow up: Rate change 13 mcg/kg/min kc6 19:02 Follow up: Rate change 15 mcg/kg/min kc6 19:02 Follow up: Rate change 15 mcg/kg/min sg5 19:30 Follow up: Rate change 17 mcg/kg/min sg5 19:35 Follow up: Rate change 19 mcg/kg/min sg5 19:42 Follow up: Rate change 21 mcg/kg/min sg5 20:16 Follow up: Rate change 19 mcg/kg/min sg5 22:50 Follow up: Rate change 17 mcg/kg/min sg5 19:24 Drug: NS 0.9% IV 500 ml Route: IV; Rate: bolus; Site: left antecubital; sg5 21:12 Follow up: IV Status: Completed infusion; IV Intake: 500ml sg5 19:40 Drug: Ativan IVP 2 mg Route: IVP; Site: left antecubital; sg5 19:52 Drug: levofloxacin IVPB 750 mg Volume: 150 ml; Route: IVPB; Infused Over: 90 mins; sg5 Site: left antecubital; 21:12 Follow up: IV Status: Completed infusion; IV Intake: 250ml sg5 20:39 Drug: vancoMYCIN IVPB 20 mg/kg Route: IVPB; Site: left antecubital; sg5 23:10 Follow up: IV Status: Completed infusion; IV Intake: 250ml sg5 Medication: 02/13 00:51 VIS not applicable for this client. kd3 Intake: 02/12 21:12 IV: 250ml; Total: 250ml. sg5 21:12 IV: 500ml; Total: 750ml. sg5 23:10 IV: 250ml; Total: 1000ml. sg5 Outcome: 18:45 Decision to Hospitalize by Provider. ms3 02/13 00:50 Admitted to ICU accompanied by nurse. kd3 Condition: stable Discharge instructions given to patient, Instructed on the need for admit. 00:50 Admitted to ICU accompanied by nurse, via stretcher, room 7, Report called to ICU sg5 Nurse 00:50 Condition: stable 00:50 Instructed on the need for admit. 00:51 Patient left the ED. kd3 Signatures: Vernon Edward em1 Nils Smith DO DO ms3 Birdie Ayala, RN RN kd3 Jacqueline Alexander7 Arti Garcia, RN RN [email or web address] Sarah Ledbetter RN RN ko1 Heydi Stoll RN RN sg5 Corrections: (The following items were deleted from the chart) 02/12 18:17 18:16 Allergies: bixon; ko1 ko1
--- NOTE | 2023-02-12 18:46 | EDPHYS ---
Physician Documentation [facility] Name: Mary Fischer Age: 58 yrs Sex: Female : 1965 Arrival Date: 02/12/2023 Time: 18:11 Bed 3 Private MD: ED Physician Nils Smith HPI: 02/12 18:47 This 58 yrs old Female presents to ER via EMS with complaints of Unresponsive. ms3 18:47 58-year-old female with past medical history of COPD, diabetes, pneumonia presents via [address] [facility] for respiratory distress. EMS states they were called to the police station and patient was short of breath and declining transport. After approximately 10 minutes patient then became less responsive and EMS began to transport. EMS noted 5 minutes prior to arrival at the hospital patient's respiratory status became worse. EMS states they did administer 125 mg of Solu-Medrol. On EMSs arrival patient's initial oxygen saturation was 50% on room air. They initiated high flow oxygen with improvement of patient's oxygen saturation to 80%.. Historical: - Allergies: 18:16 Clarithromycin; ko1 18:16 PENICILLINS; ko1 18:17 Biaxin; ko1 - PMHx: 18:16 Chronic obstructive lung disease; ko1 18:27 Diabetes mellitus; Pneumonia; kc6 - PSHx: 18:16 Total abdominal hysterectomy; ko1 - Immunization history:: Adult Immunizations unknown. - Social history:: Smoking status: unknown. ROS: 18:51 Unable to obtain ROS due to obtunded state. ms3 Exam: 18:47 Head/Face: Normocephalic, atraumatic. ms3 18:47 Neck: Trachea midline, no cervical lymphadenopathy. Supple, full range of motion without nuchal rigidity, or vertebral point tenderness. No Meningismus. Chest/axilla: Normal chest wall appearance and motion. Nontender with no deformity. Cardiovascular: Regular rate and rhythm with a normal S1 and S2. No gallops, murmurs, or rubs. Normal PMI, no JVD. No pulse deficits. 18:47 Skin: Warm, dry with normal turgor. Normal color with no rashes, no lesions, and no evidence of cellulitis. 18:47 Constitutional: The patient appears in obvious distress, obviously ill. 18:47 Eyes: Periorbital structures: appear normal, Pupils: equal, round, and reactive to light and accomodation. 18:47 Respiratory: Respirations: shallow respirations, tachypnea, Breath sounds: rales, that are moderate, are scattered. 18:47 Abdomen/GI: Inspection: obese Bowel sounds: normal, Palpation: soft. 18:47 ECG was reviewed by the Attending Physician. ms3 Vital Signs: 18:15 BP 167 / 93; Pulse 123; Resp 24 A; Pulse Ox 90% on 100 lpm BVM; ko1 18:15 BP 147 / 92; Pulse 123; Resp 19 A; Pulse Ox 100% on ETT vent; kc6 18:15 BP 171 / 108; Pulse 138; Resp 14 A; Pulse Ox 90% on ETT vent; kc6 18:34 Weight 71.5 kg (M); Height 5 ft. 5 in. ; kc6 18:40 Temp 97.8(TE); em1 19:10 BP 166 / 100; Pulse 126; Resp 14; Pulse Ox 96% on 100% FiO2 ETT vent; sg5 19:30 BP 167 / 99; Pulse 124; Resp 18; Pulse Ox 97% on 100% FiO2 ETT vent; sg5 20:00 BP 111 / 74; Pulse 99; Resp 18; Temp 97.9; Pulse Ox 99% on 100% FiO2 ETT vent; sg5 20:00 BP 94 / 63; Pulse 89; Resp 20; Pulse Ox 100% on 100% FiO2 ETT vent; sg5 18:34 Body Mass Index 26.23 (71.50 kg, 165.1 cm) kc6 Procedures: 18:53 Intubation: Intubated orally using 4 Glidescope with 7.5 mm ETT. was successful on ms3 first attempt. Ventilated with Ambu bag. Tube secured with ETT huerta measured 21 cm at lip. Patient tolerated well. MDM: 18:30 Patient medically screened. ms3 18:47 Differential diagnosis: CHF exacerbation, Chronic Obstructive Pulmonary Disease ms3 Myocardial Infarction pneumonia, Pneumothorax. 19:21 ED course: Patient meets septic shock criteria at this time. A. Pneumonia B. HR >90, RR ms3 >20. C. Respiratory failure. Shock criteria LA >4. Blood cultures ordered on arrival. Abx ordered. Will give 500 mL NS bolus due to concern for fluid overload- pulmonary edema- and CHF exacerbation.. 19:28 ED course: Sepsis re-evaluation completed.. ms3 19:28 Data reviewed: vital signs, nurses notes, lab test result(s), EKG, radiologic studies, ms3 and as a result, I will admit patient. Consideration of Admission/Observation Patient was admitted/placed on observation. Management of patient was discussed with the following: Hospitalist: Dr Sweeney in ED on patient's arrival.. I considered the following discharge prescriptions or medication management in the emergency department Medications were administered in the Emergency Department. See MAR. Independent interpretation of the following test(s) in the Emergency Department EKG: See my EKG interpretation above case monitor: rate is 130 beats/min, Rhythm is regular, sinus tachycardia, with no ectopy, Interpretation: normal rhythm, tachycardia. Historians other than the Patient: EMS: [facility]. Care significantly affected by the following chronic conditions: Diabetes, Chronic Obstructive Pulmonary Disease. 02/12 18:13 Order name: Blood Culture Adult (2) [facility] 02/12 18:13 Order name: CBC with Diff [facility] 02/12 18:13 Order name: CMP; Complete Time: 19:09 [facility] 02/12 18:13 Order name: Lactate w/ 2H reflex if indic.; Complete Time: 19:09 ko 02/12 18:13 Order name: Protime (+inr); Complete Time: 18:53 ko 02/12 18:13 Order name: Ptt, Activated; Complete Time: 18:53 ko 02/12 18:13 Order name: ABG ko 02/12 18:13 Order name: Troponin High Sensitivity; Complete Time: 19:09 ko 02/12 18:13 Order name: BNP; Complete Time: 19:09 ko 02/12 18:15 Order name: glucometer results - FOR PT WITH NO ID ko02/12 18:48 Order name: CBC with Automated Diff EDMS 02/12 18:48 Order name: CBC with Automated Diff EDMS 02/12 18:48 Order name: CBC with Automated Diff EDMS 02/12 18:48 Order name: CBC with Automated Diff EDMS 02/12 18:48 Order name: Comprehensive Metabolic Panel EDMS 02/12 18:48 Order name: Comprehensive Metabolic Panel EDMS 02/12 18:48 Order name: Comprehensive Metabolic Panel EDMS 02/12 18:48 Order name: Comprehensive Metabolic Panel EDMS 02/12 18:51 Order name: CBC Smear Scan EDMS 02/12 20:07 Order name: Manual Differential EDMS 02/12 22:37 Order name: Glucose, Ancillary Testing EDSC 02/12 23:22 Order name: Lactate Sepsis 2 HR Follow-up EDMS 02/13 00:04 Order name: Glucose, Ancillary Testing EDMS 02/12 18:13 Order name: Chest Single View XRAY ko1 02/12 19:13 Order name: RAD; Complete Time: 19:17 EDMS 02/12 18:13 Order name: EKG; Complete Time: 18:13 ko1 02/12 18:48 Order name: CONS Physician Consult EDSC 02/12 18:13 Order name: Accucheck; Complete Time: 18:26 ko1 02/12 18:13 Order name: Cardiac monitoring; Complete Time: 18:26 ko1 02/12 18:13 Order name: EKG - Nurse/Tech; Complete Time: 18:26 ko1 02/12 18:13 Order name: IV Saline Lock - Large Bore; Complete Time: 18:26 ko1 02/12 18:13 Order name: Labs collected and sent; Complete Time: 18:26 ko1 02/12 18:13 Order name: O2 Per Protocol; Complete Time: 18:26 ko1 02/12 18:13 Order name: O2 Sat Monitoring; Complete Time: 18:26 ko1 02/12 18:13 Order name: Vital Signs; Complete Time: 18:26 ko1 02/12 18:13 Order name: Roberts; Complete Time: 18:38 ko1 02/12 18:13 Order name: NG Tube; Complete Time: 18:26 ko1 EC:47 Rate is 123 beats/min. Rhythm is regular. Left axis deviation noted. WI interval is ms3 normal. QRS interval is normal. Clinical impression: Sinus tachycardia. Interpreted by me. Reviewed by me. Administered Medications: 18:13 Drug: Etomidate IVP 10 mg Route: IVP; Site: right forearm; kc6 18:59 Follow up: Response: No adverse reaction; RASS: Deep sedation (-4) kc6 18:14 Drug: Rocuronium IVP 50 mg Route: IVP; Site: right forearm; kc6 18:59 Follow up: Response: No adverse reaction kc6 18:37 Drug: Propofol IV 5 mcg/kg/min Route: IV; Rate: calculated rate; Site: right kc6 antecubital; 18:43 Follow up: Rate change 7 mcg/kg/min kc6 18:49 Follow up: Rate change 9 mcg/kg/min kc6 18:52 Follow up: Rate change 11 mcg/kg/min kc6 18:57 Follow up: Rate change 13 mcg/kg/min kc6 19:02 Follow up: Rate change 15 mcg/kg/min kc6 19:02 Follow up: Rate change 15 mcg/kg/min sg5 19:30 Follow up: Rate change 17 mcg/kg/min sg5 19:35 Follow up: Rate change 19 mcg/kg/min sg5 19:42 Follow up: Rate change 21 mcg/kg/min sg5 20:16 Follow up: Rate change 19 mcg/kg/min sg5 22:50 Follow up: Rate change 17 mcg/kg/min sg5 19:24 Drug: NS 0.9% IV 500 ml Route: IV; Rate: bolus; Site: left antecubital; sg5 21:12 Follow up: IV Status: Completed infusion; IV Intake: 500ml sg5 19:40 Drug: Ativan IVP 2 mg Route: IVP; Site: left antecubital; sg5 19:52 Drug: levofloxacin IVPB 750 mg Volume: 150 ml; Route: IVPB; Infused Over: 90 mins; sg5 Site: left antecubital; 21:12 Follow up: IV Status: Completed infusion; IV Intake: 250ml sg5 20:39 Drug: vancoMYCIN IVPB 20 mg/kg Route: IVPB; Site: left antecubital; sg5 23:10 Follow up: IV Status: Completed infusion; IV Intake: 250ml sg5 Disposition: 19:28 Critical Care:. ms3 19:47 Chart complete. ms3 Disposition Summary: 02/12/23 18:45 Hospitalization Ordered Hospitalization Status: Inpatient Admission ms3 Provider: Abebe Sweeney ms3 Condition: Stable ms3 Problem: new ms3 Symptoms: are unchanged ms3 Bed/Room Type: Standard ms3 Location: Intensive Care Unit(02/12/23 23:00) cg Room Assignment: 7-(02/12/23 23:00) cg Diagnosis - Acute respiratory failure with hypoxia ms3 - COPD/ Chronic obstructive pulmonary disease with (acute) exacerbation ms3 - Heart failure, unspecified ms3 - Severe sepsis with septic shock ms3 Forms: - Medication Reconciliation Form ms3 - SBAR form ms3 Critical care time excluding procedures: 19:28 Critical care time: Bedside Care: 35 minutes, Consultation: 10 minutes. Total time: 45 ms3 minutes Signatures: Dispatcher [employer] EDMS Tristen Seo, SECURITY TRAINER-C SECURITY TRAINER-Aide1 Mara Vance, RN RN cg Nils Smith DO DO ms3 Arti Garcia RN RN kc6 Sarah Ledbetter RN RN ko1 Heydi Stoll RN RN sg5 Corrections: (The following items were deleted from the chart) 18:17 18:16 Allergies: bixon; ko1 ko1 19:24 19:21 ED course: Patient meets septic shock criteria at this time. A. . ms3 ms3 19:52 18:45 Intensive Care Unit ms3 cg 19:52 18:45 ms3 cg 23:00 19:52 [facility] ER HOLD cg cg 23:00 19:52 ERHOLD- cg cg
[2023-02-12 18:48] LABS: Absolute Lymphocytes (CBC) 10.9 K/uL (0.7-4.9); Hematocrit 50.8 % (36.0-45.0); Lymphocytes % 52.2 % (15.3-44.8); MCV 92.9 fL (80-100); MPV 9.3 fL (7.6-11.3); RBC Red Blood Cell Count 5.47 M/uL (3.86-4.86)
[2023-02-12 19:04] LABS: Albumin 3.3 g/dL (3.4-5.0); Bilirubin Total 0.3 mg/dL (0.2-1.0); Potassium 3.6 mEq/L (3.5-5.1)
--- NOTE | 2023-02-12 19:12 | RAD REPORT ---
EXAM DESCRIPTION: RAD - Chest Single View - 02/12/2023 7:04 pm CLINICAL HISTORY: DYSPNEA Chest pain. COMPARISON: Chest Single View dated 08/18/2022; Chest Single View dated 08/14/2022; Chest Single View dated 08/12/2022; Chest Pa And Lat (2 Views) dated 09/18/2019 FINDINGS: Portable technique limits examination quality. Enteric tube is in the stomach. Tip of the ET tube is at the level of the aortic arch. Moderate bilat eral pulmonary opacities may represent pulmonary edema, pneumonia or ARDS.Heart size is mildly promin ent.
[2023-02-12 19:14] LABS: Arterial Blood Carboxyhemoglob 2.1 % (0-1.5); Blood Gas Oxyhemoglobin 88.5 % (94-97); Blood O2 Saturation 91.7 % (92-98.5)
[2023-02-12] MEDS ORDERED: VANCOMYCIN 1 GM/VIAL ONE (19:36)
[2023-02-12] MEDS ORDERED: NA CHLORIDE 0.9% 500 ML ONE (19:36)
[2023-02-12] MEDS ORDERED: NA CHLORIDE 0.9% 250 ML ONE ×3 (19:36→22:01)
[2023-02-12] MEDS ORDERED: Levofloxacin 750mg IV 750 MG/150 ML BAG IV ONE (19:36)
[2023-02-12] MEDS ORDERED: VANCOMYCIN 500 MG/VIAL ONE (19:36)
[2023-02-12] MEDS ORDERED: LORazepam 2 MG/ML VIAL ONE (19:45)
[2023-02-12 20:06] LABS: Blood Morphology Comment NOT SEEN (NOT SEEN); Platelet Estimate ADEQ
[2023-02-12] MEDS ORDERED: NOREPINEPHRINE BITARTRATE/D5W 4 MG/250 ML BAG IV ONE (20:50)
[2023-02-12] MEDS ORDERED: INSULIN -REGULAR HUMAN 50 UNIT/0.5 ML ML SQ SCH (21:00)
[2023-02-12] MEDS ORDERED: NOREPINEPHRINE 4 MG in D5W 250 ML IV SCH (21:00)
[2023-02-12] MEDS: NA CHLORIDE 0.9% 250 ML IV PRN ×2 (21:12→22:21)
[2023-02-12] MEDS: FENTANYL CITR 100 MCG/2 ML IV PRN (21:58)
[2023-02-12] MEDS ORDERED: FENTANYL CITR 100 MCG/2 ML ONE (22:00)
[2023-02-12] MEDS ORDERED: INSULIN -REGULAR HUMAN 50 UNIT/0.5 ML ML ONE (22:38)
[2023-02-12] MEDS ORDERED: D50W 25 GM/50 ML SYRINGE IV PRN (23:52)
[2023-02-13] MEDS: propofoL 1,000 MG/100 ML VIAL IV SCH ×3 (00:40→10:53)
[2023-02-13] MEDS: FENTANYL CITR 100 MCG/2 ML IV PRN ×4 (01:00→12:51)
[2023-02-13] MEDS: dexAMETHasone 4 MG/ML VIAL IV SCH ×4 (01:05→17:52)
[2023-02-13] MEDS: NA CHLORIDE 0.9% 250 ML IV PRN ×6 (01:41→06:55)
[2023-02-13] MEDS: INSULIN -REGULAR HUMAN 50 UNIT/0.5 ML ML SQ SCH ×4 (05:02→18:00)
[2023-02-13 06:17] LABS: Absolute Lymphocytes (CBC) 0.9 K/uL (0.7-4.9); Hematocrit 41.2 % (36.0-45.0); Lymphocytes % 8.1 % (15.3-44.8); MCV 87.8 fL (80-100); MPV 8.9 fL (7.6-11.3); RBC Red Blood Cell Count 4.69 M/uL (3.86-4.86)
[2023-02-13 06:40] LABS: Albumin 2.6 g/dL (3.4-5.0); Bilirubin Total 0.3 mg/dL (0.2-1.0); Potassium 4.5 mEq/L (3.5-5.1); Protein, Total 5.5 g/dL (6.4-8.2)
[2023-02-13] MEDS ORDERED: NOREPINEPHRINE BITARTRATE/D5W 4 MG/250 ML BAG IV SCH (08:00)
--- NOTE | 2023-02-13 08:11 | P.PN ---
Subjective Date of Service: 02/13/23 Primary Care Provider: nayely Chief Complaint: respiratory failure, copd Subjective: New changes (patient off the levophed, hypotensive) Review of Systems is unable to be obtained Physical Examination - Vital Signs Temperature: 97.4 F Blood Pressure: 97/67 Pulse: 92 Respirations: 23 Pulse Ox (%): 97 - Physical Exam General: Moderate distress, Unresponsive HEENT: Atraumatic, PERRLA, EOMI Neck: Supple, JVD not distended Respiratory: Normal air movement Cardiovascular: Regular rate/rhythm, Normal S1 S2 Gastrointestinal: Normal bowel sounds, No tenderness Musculoskeletal: No tenderness Integumentary: No rashes Neurological: Normal speech, Normal tone, Normal affect Lymphatics: No axilla or inguinal lymphadenopathy - Studies Laboratory Data (last 24 hrs) 02/12/23 18:10: PT 10.4, INR 0.95, APTT 28.0 02/12/23 18:10: Sodium 134 L, Potassium 3.6, BUN 14, Creatinine 1.25 H, Glucose 578 H*, Total Bilirubin 0.3, AST 52 H, ALT 45, Alkaline Phosphatase 80 02/12/23 18:10: WBC 20.80 H, Hgb 15.9 H, Hct 50.8 H, Plt Count 332 Assessment And Plan - Current Problems (Diagnosis) (1) Respiratory failure Current Visit: Yes Status: Acute Plan: will admit to the ICU. Consult to Dr. Amaya. Will start her on steroids. Attempt weaning in the am 6/9 Patient agitated.Off levophed Will continue fluids. She is on 50% oxygen. Qualifiers: Chronicity: acute Respiratory failure complication: hypoxia Qualified Code(s): J96.01 - Acute respiratory failure with hypoxia (2) Type 2 diabetes mellitus without complications Current Visit: No Status: Acute Plan: will use a low dose sliding scale. She will be on steroids for the respiratory failure. 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 Qualifiers: COPD type: chronic bronchitis Chronic bronchitis type: simple Qualified Code(s): J41.0 - Simple chronic bronchitis (4) Sepsis Current Visit: Yes Status: Acute Plan: wbc has normalized. Continue antibiotics. Blood cultures pending Qualifiers: Sepsis type: sepsis due to unspecified organism Sepsis acute organ dysfunction status: unspecified Qualified Code(s): A41.9 - Sepsis, unspecified organism Discharge Plan: Home Plan to discharge in: Greater than 2 days - Code Status/Comfort Care Code Status Assessed: No Physician Review: Patient Assessed, Agree with Above Assessment and Plan Critical Care: Yes Time Spent Managing PTS Care (In Minutes): 20
[2023-02-13 08:42] LABS: Blood Morphology Comment NOT SEEN (NOT SEEN); Platelet Estimate ADEQ; White Blood Cell Scan OK (OK)
[2023-02-13] MEDS: D5 0.45 NS 1,000 ML IV SCH ×2 (09:11→19:02)
[2023-02-13] MEDS ORDERED: NA CHLORIDE 0.9% 250 ML IV PRN (12:20)
--- NOTE | 2023-02-13 12:59 | P.CNS ---
Date of Consult: 02/13/23 Reason for Consult: Respiratory failure Primary Care Provider: nayely Chief Complaint: respiratory failure, copd History of Present Illness: Patient is 58 years of age with a history of COPD went to the police station came unresponsive was intubated admitted to the ICU patient is alert very agitated copious secretions patient was also hypotensive x-ray bilateral interstitial changes possible pulmonary edema Allergies clarithromycin [From Biaxin] Allergy (Verified 03/18/22 17:56) Unknown Penicillins Allergy (Verified 03/18/22 17:56) Unknown Home Medications: Albuterol Inhaler [Ventolin Inhaler*] 2 puff IH Q6H PRN 30 Days #30 gm 08/20/22 Budesonide/Formoterol Fumarate [Budesonide-Formoterol 160-4.5] 10.2 gm IH 01/11/23 Metformin HCl 500 mg PO BID 01/11/23 Mometasone/Formoterol [Dulera 200 Mcg-5 Mcg Inhaler] 01/11/23 Nicotine [Nicotine Patch] 1 each TD DAILY 01/11/23 Prednisone [Sterapred Ds] 10 mg PO DAILY 01/11/23 Simvastatin 20 mg PO DAILY 01/11/23 Prednisone [Sterapred Ds] 10 mg PO BID 6AM 6PM 30 Days #60 tab 01/13/23 - Past Medical/Surgical History Diabetic: Yes -: COPD -: total abdominal hysterectomy - Family History Father Medical History: Cancer Mother Medical History: Cancer - Social History Smoking Status: Unknown if ever smoked Alcohol use: No CD- Drugs: No Caffeine use: Yes Review of Systems is unable to be obtained Physical Examination Temp Pulse Resp BP Pulse Ox 97.4 F 74 20 97/67 96 02/13/23 08:11 02/13/23 12:38 02/13/23 12:51 02/13/23 08:11 02/13/23 12:51 General: Alert, Moderate distress Respiratory: Clear to auscultation bilaterally, Diminished Cardiovascular: No edema, Normal pulses, Normal S1 S2 Gastrointestinal: Normal bowel sounds, Soft and benign, Non-distended Laboratory Data (last 24 hrs) 02/12/23 18:10: PT 10.4, INR 0.95, APTT 28.0 02/12/23 18:10: Sodium 134 L, Potassium 3.6, BUN 14, Creatinine 1.25 H, Glucose 578 H*, Total Bilirubin 0.3, AST 52 H, ALT 45, Alkaline Phosphatase 80 02/12/23 18:10: WBC 20.80 H, Hgb 15.9 H, Hct 50.8 H, Plt Count 332 - Problems (1) Respiratory failure Current Visit: Yes Status: Acute Plan: Patient is 58 years of age admitted with acute respiratory distress hypoxemia stable pulmonary edema history of COPD currently on a ventilator very agitated we will start patient on dexmedetomidine drip she is also on propofol Vent prot ocol patient was found to be hypoxic hypercapnic with respiratory acidosis White count was elevated is down to normal repeat chest x-ray ordered we will start patient on a Precedex drip echocardiogram patient was initially hypotensive now weaned off vasopressors reduce dose of dexamethasone better bronchodilators Vent settings reviewed and FiO2 of 50%
[2023-02-13] MEDS ORDERED: DEXMEDETOMIDINE HCL 200 MCG in NA CHLORIDE 0.9% 98 ML IV SCH (13:00)
[2023-02-13] MEDS: LORazepam 2 MG/ML VIAL IV PRN ×3 (13:03→23:33)
[2023-02-13] MEDS: IPRATROPIUM BROM 0.5MG/2.5ML NEB SCH ×2 (13:55→19:45)
[2023-02-13] MEDS: ALBUTEROL 2.5 MG/3 ML NEB SOL IH SCH ×2 (13:55→19:45)
--- NOTE | 2023-02-13 14:47 | EKG ---
Test Date: 2023-02-12 Test Time: 18:16:24 Bull Wheel Worker: SOPHIA MEASUREMENT RESULTS: Intervals: Rate: 123 WV: 132 QRSD: 104 QT: 332 QTc: 475 [place]: P: 66 WV: 132 QRS: 85 T: -37 INTERPRETIVE STATEMENTS: Sinus tachycardia Anterior infarct, age undetermined Abnormal ECG Compared to ECG 01/11/2023 06:51:36 Myocardial infarct finding now present Sinus rhythm no longer present Electronically Signed On 02-13-23 14:44:31 CDT by Doc Gonzalez
[2023-02-13] MEDS: DEXMEDETOMIDINE HCL 1,000 MCG in NA CHLORIDE 0.9% 490 ML IV SCH (14:58)
--- NOTE | 2023-02-13 15:12 | RAD REPORT ---
EXAM DESCRIPTION: Chandan Single View02/13/2023 2:52 pm CLINICAL HISTORY: Respiratory failure COMPARISON: February 12, 2023 FINDINGS: Bilateral pulmonary opacities have mildly improved Heart remains enlarged. Tubes in good position IMPRESSION: Mild improvement in bilateral pulmonary opacities which may indicate pulmonary edema
[2023-02-13] MEDS: FAMOTIDINE 20 MG/2 ML VIAL IV SCH (20:32)
[2023-02-13] MEDS: NA CHLORIDE 0.9% 1,000 ML IV SCH (20:58)
[2023-02-14] MEDS: dexAMETHasone 4 MG/ML VIAL IV SCH ×3 (00:13→20:34)
[2023-02-14] MEDS: INSULIN -REGULAR HUMAN 50 UNIT/0.5 ML ML SQ SCH ×4 (00:13→18:42)
[2023-02-14] MEDS: DEXMEDETOMIDINE HCL 1,000 MCG in NA CHLORIDE 0.9% 490 ML IV SCH ×2 (00:13→15:34)
[2023-02-14] MEDS: FENTANYL CITR 100 MCG/2 ML IV PRN ×2 (01:00→04:53)
[2023-02-14] MEDS: LORazepam 2 MG/ML VIAL IV PRN ×5 (01:01→23:38)
[2023-02-14] MEDS: IPRATROPIUM BROM 0.5MG/2.5ML NEB SCH ×4 (01:20→19:35)
[2023-02-14] MEDS: ALBUTEROL 2.5 MG/3 ML NEB SOL IH SCH ×4 (01:20→19:35)
[2023-02-14] MEDS: NA CHLORIDE 0.9% 1,000 ML IV SCH (05:49)
[2023-02-14 06:26] LABS: Absolute Lymphocytes (CBC) 1.2 K/uL (0.7-4.9); Hematocrit 42.9 % (36.0-45.0); Lymphocytes % 8.7 % (15.3-44.8); MCV 88.7 fL (80-100); MPV 9.6 fL (7.6-11.3); RBC Red Blood Cell Count 4.84 M/uL (3.86-4.86)
[2023-02-14 06:41] LABS: Albumin 2.6 g/dL (3.4-5.0); Bilirubin Total 0.4 mg/dL (0.2-1.0); Potassium 4.6 mEq/L (3.5-5.1); Protein, Total 5.7 g/dL (6.4-8.2)
--- NOTE | 2023-02-14 07:54 | RAD REPORT ---
EXAM DESCRIPTION: RAD - Chest Single View - 02/14/2023 5:30 am CLINICAL HISTORY: Respiratory failure COMPARISON: Chest Single View dated 02/13/2023; Chest Single View dated 02/12/2023; Chest Single View da james 08/18/2022; Chest Single View dated 08/14/2022; Chest Abdomen Pelvis W Cont dated 01/11/2023 FINDINGS: Lines: Endotracheal tube at the aortic arch. NG tube below the diaphragm Lungs: Bilateral interstitial and airspace disease. Worsened aeration of the right lung base. Pleural: Right pleural effusion likely mild to moderate in size. Cardiac: Cardiomegaly. Mediastinum: Within normal limits. Bones: No acute fractures. Other: None IMPRESSION: Interstitial and airspace disease bilaterally likely reflecting edema. Worsened aeration of the right lung base could be due to enlarging layering pleural effusion.
[2023-02-14] MEDS: FAMOTIDINE 20 MG/2 ML VIAL IV SCH ×2 (07:57→20:34)
[2023-02-14] MEDS ORDERED: MAGNESIUM SULFATE 1 gm IVPB 1 GM/100 ML BAG IV ONE (09:00)
--- NOTE | 2023-02-14 09:42 | P.PN ---
Subjective Date of Service: 02/14/23 Primary Care Provider: nayely Chief Complaint: respiratory failure, copd Patient's condition is stable however she is requiring considerable amount of sedation becomes extremely agitated patient is on dexmedetomidine Review of Systems is unable to be obtained Physical Examination - Vital Signs Temperature: 96.8 F Blood Pressure: 101/81 Pulse: 74 Respirations: 28 Pulse Ox (%): 96 - Physical Exam General: Unresponsive Respiratory: Clear to auscultation bilaterally, Diminished Cardiovascular: No edema, Regular rate/rhythm, Normal S1 S2 Assessment And Plan - Current Problems (Diagnosis) (1) Respiratory failure Current Visit: Yes Status: Acute Plan: Patient admitted with respiratory failure chest x-ray shows worsening on the right side possible effusion or consolidation secretions have decreased possible underlying heart failure DC IV fluids White count is mildly elevated reduce dose of steroids cultures are so far negative secretions have declined sputum cultures are pending add cefepime DVT prophylaxis patient is tolerating SIMV Qualifiers: Chronicity: acute on chronic Physician Review: Patient Assessed, Agree with Above Assessment and Plan
[2023-02-14] MEDS: ENOXAPARIN 40 MG/0.4 ML SQ SCH (10:36)
[2023-02-14] MEDS: CEFEPIME 2 GM in NA CHLORIDE 0.9% 100 ML IV SCH ×2 (10:37→20:34)
--- NOTE | 2023-02-14 12:51 | P.PN ---
Subjective Date of Service: 02/14/23 Primary Care Provider: nayely Chief Complaint: respiratory failure, copd Subjective: No new changes Review of Systems is unable to be obtained Physical Examination - Vital Signs Temperature: 96.8 F Blood Pressure: 100/77 Pulse: 81 Respirations: 36 Pulse Ox (%): 95 - Physical Exam General: Alert, In no apparent distress HEENT: Atraumatic, PERRLA, EOMI Neck: Supple, JVD not distended Respiratory: Clear to auscultation bilaterally, Normal air movement Cardiovascular: Regular rate/rhythm, Normal S1 S2 Gastrointestinal: Normal bowel sounds, No tenderness Musculoskeletal: No tenderness Integumentary: No rashes Neurological: Normal speech, Normal tone, Normal affect Lymphatics: No axilla or inguinal lymphadenopathy Assessment And Plan - Current Problems (Diagnosis) (1) Respiratory failure Current Visit: Yes Status: Acute Plan: will admit to the ICU. Consult to Dr. Amaya. Will start her on steroids. Attempt weaning in the am 02/14 Patient failed extubation due to agitation. She had some volume overload. Fluids held by Dr. Amaya. Which is appropriate. May get an echocardiogram on Thursday Qualifiers: Chronicity: acute Respiratory failure complication: hypoxia Qualified Code(s): J96.01 - Acute respiratory failure with hypoxia (2) Type 2 diabetes mellitus without complications Current Visit: No Status: Acute Plan: will use a low dose sliding scale. She will be on steroids for the respiratory failure. Qualifiers: Diabetes mellitus alf insulin use: without predatory animal exterminator use (3) COPD (chronic obstructive pulmonary disease) Current Visit: No Status: Chronic Plan: will restart her inhalers after extubation . Qualifiers: COPD type: chronic bronchitis Chronic bronchitis type: simple Qualified Code(s): J41.0 - Simple chronic bronchitis (4) Sepsis Current Visit: Yes Status: Acute Plan: wbc has normalized. Continue antibiotics. Blood cultures pending Qualifiers: Sepsis type: sepsis due to unspecified organism Sepsis acute organ dysfunction status: unspecified Qualified Code(s): A41.9 - Sepsis, unspecified organism Discharge Plan: Home Plan to discharge in: Greater than 2 days - Code Status/Comfort Care Code Status Assessed: No Physician Review: Patient Assessed, Agree with Above Assessment and Plan Critical Care: Yes Time Spent Managing PTS Care (In Minutes): 20
[2023-02-15] MEDS: INSULIN -REGULAR HUMAN 50 UNIT/0.5 ML ML SQ SCH ×4 (00:09→18:34)
[2023-02-15] MEDS: IPRATROPIUM BROM 0.5MG/2.5ML NEB SCH ×4 (01:05→19:42)
[2023-02-15] MEDS: ALBUTEROL 2.5 MG/3 ML NEB SOL IH SCH ×4 (01:05→19:42)
[2023-02-15] MEDS: DEXMEDETOMIDINE HCL 1,000 MCG in NA CHLORIDE 0.9% 490 ML IV SCH ×2 (04:28→16:24)
[2023-02-15] MEDS: LORazepam 2 MG/ML VIAL IV PRN ×2 (06:22→14:33)
[2023-02-15 06:53] LABS: Absolute Lymphocytes (CBC) 1.8 K/uL (0.7-4.9); Hematocrit 43.2 % (36.0-45.0); MCV 88.9 fL (80-100); MPV 9.8 fL (7.6-11.3); RBC Red Blood Cell Count 4.86 M/uL (3.86-4.86)
[2023-02-15 07:18] LABS: Albumin 2.4 g/dL (3.4-5.0); Bilirubin Total 0.5 mg/dL (0.2-1.0); Potassium 4.5 mEq/L (3.5-5.1); Protein, Total 5.4 g/dL (6.4-8.2)
--- NOTE | 2023-02-15 07:52 | RAD REPORT ---
EXAM DESCRIPTION: RADDavidt Single View02/15/2023 5:05 am CLINICAL HISTORY: Left respiratory failure COMPARISON: 02/14/2023 FINDINGS: Endotracheal nasogastric tubes in good position Mild improvement in the bilateral pulmonary opacities No significant change the right pleural effusion and a mild right basilar atelectasis Heart is mildly enlarged
[2023-02-15] MEDS: CEFEPIME 2 GM in NA CHLORIDE 0.9% 100 ML IV SCH ×2 (09:37→21:16)
[2023-02-15] MEDS: ENOXAPARIN 40 MG/0.4 ML SQ SCH (09:37)
[2023-02-15] MEDS: dexAMETHasone 4 MG/ML VIAL IV SCH ×2 (09:37→21:16)
[2023-02-15] MEDS: FAMOTIDINE 20 MG/2 ML VIAL IV SCH ×2 (09:37→21:16)
--- NOTE | 2023-02-15 11:51 | P.PN ---
Subjective Date of Service: 02/15/23 Primary Care Provider: nayely Chief Complaint: respiratory failure, copd Subjective: Improving (requirng less sedation, not as agitated per nursing) Review of Systems is unable to be obtained Physical Examination - Vital Signs Temperature: 97.3 F Blood Pressure: 116/61 Pulse: 73 Respirations: 20 Pulse Ox (%): 98 - Physical Exam General: Unresponsive HEENT: Atraumatic, PERRLA, EOMI Neck: Supple, JVD not distended Respiratory: Clear to auscultation bilaterally, Normal air movement Cardiovascular: Regular rate/rhythm, Normal S1 S2 Gastrointestinal: Normal bowel sounds, No tenderness Musculoskeletal: No tenderness Integumentary: No rashes Neurological: Normal speech, Normal tone, Normal affect Lymphatics: No axilla or inguinal lymphadenopathy Assessment And Plan - Current Problems (Diagnosis) (1) Respiratory failure Current Visit: Yes Status: Acute Plan: will admit to the ICU. Consult to Dr. Amaya. Will start her on steroids. Attempt weaning in the am 02/14 Patient failed extubation due to agitation. She had some volume overload. Fluids held by Dr. Amaya. Which is appropriate. May get an echocardiogram on Thursday Qualifiers: Chronicity: acute Respiratory failure complication: hypoxia Qualified Code(s): J96.01 - Acute respiratory failure with hypoxia (2) Type 2 diabetes mellitus without complications Current Visit: No Status: Acute Plan: will use a low dose sliding scale. She will be on steroids for the respiratory failure. 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 Qualifiers: COPD type: chronic bronchitis Chronic bronchitis type: simple Qualified Code(s): J41.0 - Simple chronic bronchitis (4) Sepsis Current Visit: Yes Status: Acute Plan: wbc has normalized. Continue antibiotics. Blood cultures pending Qualifiers: Sepsis type: sepsis due to unspecified organism Sepsis acute organ dysfunction status: unspecified Qualified Code(s): A41.9 - Sepsis, unspecified organism Discharge Plan: Home Plan to discharge in: Greater than 2 days - Code Status/Comfort Care Code Status Assessed: No Physician Review: Patient Assessed, Agree with Above Assessment and Plan Critical Care: Yes Time Spent Managing PTS Care (In Minutes): 20
[2023-02-15] MEDS: FENTANYL CITR 100 MCG/2 ML IV PRN (13:18)
[2023-02-15] MEDS ORDERED: FUROSEMIDE 20 MG/ 2ML VIAL IV ONE ×2 (16:41→22:00)
[2023-02-15] MEDS ORDERED: WATER FOR INJ,STERILE 10 ML IM PRN (16:42)
[2023-02-15] MEDS: ZIPRASIDONE MESYLA 20 MG/VIAL IM SCH (17:00)
[2023-02-16] MEDS: FENTANYL CITR 100 MCG/2 ML IV PRN (00:14)
[2023-02-16] MEDS: ALBUTEROL 2.5 MG/3 ML NEB SOL IH SCH ×4 (00:40→19:45)
[2023-02-16] MEDS: IPRATROPIUM BROM 0.5MG/2.5ML NEB SCH ×4 (00:40→19:45)
[2023-02-16] MEDS: INSULIN -REGULAR HUMAN 50 UNIT/0.5 ML ML SQ SCH ×5 (00:56→19:52)
[2023-02-16] MEDS: LORazepam 2 MG/ML VIAL IV PRN ×2 (00:56→22:41)
[2023-02-16] MEDS: DEXMEDETOMIDINE HCL 1,000 MCG in NA CHLORIDE 0.9% 490 ML IV SCH (04:18)
[2023-02-16] MEDS: ZIPRASIDONE MESYLA 20 MG/VIAL IM SCH (05:01)
[2023-02-16 05:06] LABS: Lymphocytes % 10.2 % (15.3-44.8); MCV 88.8 fL (80-100); MPV 9.4 fL (7.6-11.3); RBC Red Blood Cell Count 4.96 M/uL (3.86-4.86)
[2023-02-16 05:15] VITALS: BMI 25.3
[2023-02-16 05:20] LABS: Magnesium 1.8 mg/dL (1.6-2.4)
[2023-02-16] MEDS ORDERED: MAGNESIUM SULFATE 1 gm IVPB 1 GM/100 ML BAG IV ONE (08:00)
--- NOTE | 2023-02-16 08:17 | P.PN ---
Subjective Date of Service: 02/16/23 Primary Care Provider: nayely Chief Complaint: respiratory failure, copd Subjective: Improving (plans for extubation today) Review of Systems is unable to be obtained Physical Examination - Vital Signs Temperature: 97.2 F Blood Pressure: 127/72 Pulse: 65 Respirations: 18 Pulse Ox (%): 99 - Physical Exam General: In no apparent distress, Unresponsive HEENT: Atraumatic, PERRLA, EOMI Neck: Supple, JVD not distended Respiratory: Clear to auscultation bilaterally, Normal air movement Cardiovascular: Regular rate/rhythm, Normal S1 S2 Gastrointestinal: Normal bowel sounds, No tenderness Musculoskeletal: No tenderness Integumentary: No rashes Neurological: Normal speech, Normal tone, Normal affect Lymphatics: No axilla or inguinal lymphadenopathy Assessment And Plan - Current Problems (Diagnosis) (1) Respiratory failure Current Visit: Yes Status: Acute Plan: will admit to the ICU. Consult to Dr. Amaya. Will start her on steroids. Attempt weaning in the am /[address] Amaya. Plans for extubation today Qualifiers: Chronicity: acute Respiratory failure complication: hypoxia Qualified Code(s): J96.01 - Acute respiratory failure with hypoxia (2) Type 2 diabetes mellitus without complications Current Visit: No Status: Acute Plan: will use a low dose sliding scale. She will be on steroids for the respiratory failure. 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 Qualifiers: COPD type: chronic bronchitis Chronic bronchitis type: simple Qualified Code(s): J41.0 - Simple chronic bronchitis (4) Sepsis Current Visit: Yes Status: Acute Plan: wbc has normalized. Continue antibiotics. Blood cultures pending Qualifiers: Sepsis type: sepsis due to unspecified organism Sepsis acute organ dysfunction status: unspecified Qualified Code(s): A41.9 - Sepsis, unspecified organism Discharge Plan: Home Plan to discharge in: 48 Hours - Code Status/Comfort Care Code Status Assessed: No Physician Review: Patient Assessed, Agree with Above Assessment and Plan Critical Care: Yes Time Spent Managing PTS Care (In Minutes): 20
[2023-02-16] MEDS: FAMOTIDINE 20 MG/2 ML VIAL IV SCH ×2 (08:22→19:51)
[2023-02-16] MEDS: ENOXAPARIN 40 MG/0.4 ML SQ SCH (08:22)
[2023-02-16] MEDS: dexAMETHasone 4 MG/ML VIAL IV SCH ×2 (08:22→19:52)
--- NOTE | 2023-02-16 08:28 | RAD REPORT ---
EXAM DESCRIPTION: RAD - Chest Single View - 02/16/2023 6:02 am CLINICAL HISTORY: Respiratory failure Chest pain. COMPARISON: Chest Single View dated 02/15/2023; Chest Single View dated 02/14/2023; Chest Single View dated 02/13/2023; Chest Single View dated 02/12/2023 FINDINGS: Portable technique limits examination quality. Moderate bilateral pulmonary opacities are noted, unchanged since 02/15/2023. The heart is moderately enlarged. Trace pleural effusions. Endotracheal tube tip is at the level of the aortic arch.Enteric tube descends into the stomach. IMPRESSION: Stable mild CHF pattern.
[2023-02-16] MEDS: CEFEPIME 2 GM in NA CHLORIDE 0.9% 100 ML IV SCH ×2 (08:52→19:52)
[2023-02-16] MEDS ORDERED: ZIPRASIDONE MESYLA 20 MG/VIAL IM PRN (12:29)
--- NOTE | 2023-02-16 12:29 | P.PN ---
Subjective Date of Service: 02/16/23 Primary Care Provider: nayely Chief Complaint: respiratory failure, copd Patient is doing much better currently stable did pass a spontaneous breathing trial and was extubated chest x-ray also looks better Review of Systems is unable to be obtained Physical Examination - Vital Signs Temperature: 97.2 F Blood Pressure: 126/74 Pulse: 63 Respirations: 24 Pulse Ox (%): 100 - Physical Exam General: Alert, Cooperative Respiratory: Clear to auscultation bilaterally, Diminished Cardiovascular: No edema, Regular rate/rhythm Assessment And Plan - Current Problems (Diagnosis) (1) Respiratory failure Current Visit: Yes Status: Acute Plan: Respiratory failure patient is doing much better and was extubated spontaneous breathing trial his blood sugar is elevated white count is normal x-ray has improved cultures are negative unable to send off any sputum phonation satisfactory echocardiogram is pending continue with low-dose Lasix Qualifiers: Chronicity: acute on chronic Physician Review: Patient Assessed, Agree with Above Assessment and Plan
[2023-02-16 20:27] VITALS: O2SAT 96
[2023-02-17] MEDS: IPRATROPIUM BROM 0.5MG/2.5ML NEB SCH ×2 (01:10→08:00)
[2023-02-17] MEDS: ALBUTEROL 2.5 MG/3 ML NEB SOL IH SCH ×2 (01:10→08:00)
[2023-02-17] MEDS: CEFEPIME 2 GM in NA CHLORIDE 0.9% 100 ML IV SCH (08:00)
[2023-02-17] MEDS: FAMOTIDINE 20 MG/2 ML VIAL IV SCH (08:01)
[2023-02-17] MEDS: INSULIN -REGULAR HUMAN 50 UNIT/0.5 ML ML SQ SCH (08:01)
[2023-02-17] MEDS: dexAMETHasone 4 MG/ML VIAL IV SCH (08:01)
[2023-02-17] MEDS: ENOXAPARIN 40 MG/0.4 ML SQ SCH (08:01)
--- NOTE | 2023-02-17 08:02 | P.DS ---
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 With a history of copd, dm2, nicotine dependence. 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 She had a collapse. Was found to be hypoxic when the fire dept responded. Brought to the ER. Was not breathing and was intubated. Hospital Course: Patient was admitted for respiratory failure. The patient was very agitated difficult to extubate. Managed to extubate her today. She is demanding to be discharged or she will leave regardless. Will discharge her today Vital Signs/Physical Exam: Temp Pulse Resp BP Pulse Ox 97.2 F 90 17 121/68 96 02/17/23 05:31 02/17/23 05:31 02/17/23 05:31 02/17/23 05:31 02/17/23 05:31 General: Alert, In no apparent distress HEENT: Atraumatic, PERRLA, EOMI Neck: Supple, JVD not distended Respiratory: Clear to auscultation bilaterally, Normal air movement Cardiovascular: Regular rate/rhythm, Normal S1 S2 Gastrointestinal: Normal bowel sounds, No tenderness Musculoskeletal: No tenderness Integumentary: No rashes Neurological: Normal speech, Normal tone, Normal affect Lymphatics: No axilla or inguinal lymphadenopathy Laboratory Data at Discharge: WBC 9.70 thou/uL (4.3-10.9) 02/16/23 04:30 Hgb 14.4 g/dL (12.0-15.0) 02/16/23 04:30 Hct 44.0 % (36.0-45.0) 02/16/23 04:30 Plt Count 154 thou/uL (152-406) 02/16/23 04:30 PT 10.4 SECONDS (9.5-12.5) 02/12/23 18:10 INR 0.95 02/12/23 18:10 APTT 28.0 SECONDS (24.3-36.9) 02/12/23 18:10 Sodium 136 mEq/L (136-145) 02/16/23 04:30 Potassium 4.0 mEq/L (3.5-5.1) 02/16/23 04:30 BUN 16 mg/dL (7-18) 02/16/23 04:30 Creatinine 0.76 mg/dL (0.55-1.02) 02/16/23 04:30 Glucose 351 mg/dL (74-106) H 02/16/23 04:30 Magnesium 1.8 mg/dL (1.6-2.4) 02/16/23 04:30 Magnesium Cancelled 02/16/23 04:30 Total Bilirubin 0.5 mg/dL (0.2-1.0) 02/15/23 06:10 AST 12 U/L (15-37) L 02/15/23 06:10 ALT 28 U/L (13-56) 02/15/23 06:10 Alkaline Phosphatase 56 U/L (45-117) 02/15/23 06:10 Home Medications: Albuterol Inhaler [Ventolin Inhaler*] 2 puff IH Q6H PRN 30 Days #30 gm 08/20/22 Budesonide/Formoterol Fumarate [Budesonide-Formoterol 160-4.5] 10.2 gm IH 01/11/23 Metformin HCl 500 mg PO BID 01/11/23 Mometasone/Formoterol [Dulera 200 Mcg-5 Mcg Inhaler] 01/11/23 Nicotine [Nicotine Patch] 1 each TD DAILY 01/11/23 Prednisone [Sterapred Ds] 10 mg PO DAILY 01/11/23 Simvastatin 20 mg PO DAILY 01/11/23 Prednisone [Sterapred Ds] 10 mg PO BID 6AM 6PM 30 Days #60 tab 01/13/23 Diet: Regular Followup: Patel,Abebe, MD [ACTIVE - CAN ADMIT] - Physician Review: Patient Assessed, Agree with Above Assessment and Plan Time spent managing pt's care (in minutes): 30
[2023-02-17 08:44] VITALS: BP 139/70; TEMP 98.6
--- NOTE | 2023-02-18 08:29 | ECHO ---
HEIGHT: 5 ft 5 in WEIGHT: 152 lb 6 oz DATE OF STUDY: 02/16/[address]: Delonte Craig MD 2-DIMENSIONAL: YES M.MODE: YES DOPPLER: YES COLOR FLOW: YES TDS: NO PORTABLE: YES DEFINITY: NO BUBBLE STUDY: NO DIAGNOSIS: PULMONARY EDEMA CARDIAC HISTORY: CATHERIZATION: NO SURGERY: NO PROSTHETIC VALVE: NO PACEMAKER: NO MEASUREMENTS (cm) DIASTOLIC (NORMALS) SYSTOLIC (NORMALS) IVSd 0.9 (0.6-1.2) LA Diam 3.0 (1.9-4.0) LVEF 37% LVIDd 5.2 (3.5-5.7) LVIDs 4.3 (2.0-3.5) %FS 18% LVPWd 1.1 (0.6-1.2) Ao Diam 2.8 (2.0-3.7) 2 DIMENSIONAL ASSESSMENT: RIGHT ATRIUM: NORMAL LEFT ATRIUM: NORMAL RIGHT VENTRICLE: NORMAL LEFT VENTRICLE: NORMAL TRICUSPID VALVE: NORMAL MITRAL VALVE: NORMAL PULMONIC VALVE: NORMAL AORTIC VALVE: NORMAL PERICARDIAL EFFUSION: NONE AORTIC ROOT: NORMAL LEFT VENTRICULAR WALL MOTION: MILD TO MODERATE GLOBAL HYPOKINESIS. DOPPLER/COLOR FLOW: MILD TRICUSPID REGURGITATION. COMMENTS: 1. MILD TO MODERATE GLOBAL HYPOKINESIS. LEFT VENTRICULAR EJECTION FRACTION 37%. 2. MILD TRICUSPID REGURGITATION. 3. NO EFFUSION. TECHNOLOGIST: IVIS WESTFALL
== END 2023-02-17 09:27 | disposition home or self-care (01) | DRG 871 ==
LOC: ER 18:11 → ERHOLD 18:44 → 3RD-ICU 23:21 → 4TH 02-16 18:16
PROVIDERS: ADMIT Internal Medicine; ATTEND Internal Medicine
PROC: 5A1945Z Respiratory Ventilation, 24-96 Consecutive Hours (ICD-10-PCS; principal; 2023-02-12)
PROC: 0BH18EZ Insertion of Endotracheal Airway into Trachea, Via Natural or Artificial Opening Endoscopic (ICD-10-PCS; 2023-02-12)
PROC: 0T9B70Z Drainage of Bladder with Drainage Device, Via Natural or Artificial Opening (ICD-10-PCS; 2023-02-12)
DX: A41.9 Sepsis, unspecified organism (principal); J96.01 Acute respiratory failure with hypoxia; E11.9 Type 2 diabetes mellitus without complications; J41.0 Simple chronic bronchitis; R45.1 Restlessness and agitation; Z78.1 Physical restraint status
CPT/HCPCS: 31500; 36415; 51702; 71045; 80048; 80053; 82805; 82947; 83605; 83735; 83880; 84484; 85025; 85610; 85730; 87040; 87070; 87205; 93005; 93306; 94002; 94003; 94640; 94760; 99285; J0692; J1100; J1650; J1815; J1940; J2704; J3010; J3475; J3486; J7030; J7040; J7050; J7613; J7644; J7799